=== PATIENT | female | born 1955 | race Asian ===

== ENCOUNTER 2024-02-17 06:18 | Day surgery (SDC) | payer OTHER, SELFPAY ==
[2024-02-17] VITALS (12 sets, daily range): BP systolic 87–123; BP diastolic 60–77; BMI 21.3
[2024-02-17 07:20] LABS: Glucose - Point of Care 208 mg/dl (70-99)
--- NOTE | 2024-02-17 08:18 | ITS.CL.CATH ---
Automotive Parts Specialist - Catheterization
Cardiac Catheterization
Procedure Report:
CARDIAC CATHETERIZATION REPORT
Date of Procedure: 02/17/2024
Referring: Justin Mcqueen MD
Indication: Exertional dyspnea with multiple CAD risks and left ventricular dysfunction
�
HEMODYNAMIC DATA
AO: 139/69
LV: 139/12
�
LEFT VENTRICULOGRAPHY: Severe inferobasal and mild anterolateral hypokinesis with EF 42%. The LV is not dilated
�
CORONARY ANGIOGRAPHY
Dominance: Right
Left Main: 20% distal stenosis
LAD: Moderately calcified vessel with focal 50% mid LAD stenosis. The remainder of the LAD proper has mild luminal disease. D1 is a small bifurcating vessel. The large bifurcating second diagonal has 70% proximal stenosis
Circumflex: There is a small diseased ramus intermedius branch. The circumflex has 90% stenosis proximal to the takeoff of a tiny OM 2. OM 3 is large and subtotally occluded in its proximal and mid portions. The distal segment of OM 2 fills via
left to left collaterals. The circumflex continues on to supply two small diseased left posterolateral branches
RCA: The RCA is occluded in the midportion. A medium sized RPDA, small RPL 1, small RPL 2, and large RPL 3 fills via well-developed [id number] collaterals. There appears to be greater than 70% ostial RPDA stenosis
FloWire assessment: At the conclusion of the procedure we performed FloWire assessment of the LAD. If the LAD disease was not hemodynamically significant we would proceed with PCI of the diagonal branch as there would be no survival benefit to
CABG. If the LAD disease was found to be hemodynamically significant the patient would have a survival advantage to CABG. Heparin was used for anticoagulation. An EBU 3.5 guide catheter was used. A SMS Assist pressure wire was advanced into the
distal LAD. iFR measurements were 0.75, 0.76, and 0.73. The majority of the drop in Pd/Pa occurred at the site of the mid LAD lesion although there was some continued drop in the proximal LAD. These values are consistent with highly flow-limiting
disease.
�
Closure Device: None-the procedure was performed via the right radial artery. The Shelton's test was normal prior to the procedure.
�
Radiation (mGy): 162
DAP (cm2.Gy): 13.4
Fluoroscopy time: 3.3 minutes
�
CONCLUSIONS
1:�Severe inferobasal and mild anterolateral hypokinesis with EF 42%
2:�Severe triple-vessel CAD as described-FloWire assessment demonstrates the LAD disease to be flow-limiting
3. Recommend outpatient evaluation for CABG. Optimal revascularization would include grafting of the LAD, large D2, OM 3, distal RPL, +/-RPDA
�
�
Copy to: Justin Mcqueen MD, Timi Mcintosh MD
�
Surendra Cole MD, [facility], [facility]
--- NOTE | 2024-02-17 08:33 | PTCARENOTE ---
[facility] patient education packets printed in Portuguese and given to pt and spouse for:
1. Coronary Artery Disease
2. Cardiac Catheterization
3. Cardiac Catheterization discharge instructions
4. Healthy Heart Diet
5. Nitroglycerin
== END 2024-02-17 12:05 | disposition home or self-care (01) ==
LOC: CATH 06:18
PROVIDERS: ATTENDING PHYSICIAN Internal Medicine Cardiovascular Disease; FAMILY PHYSICIAN Internal Medicine; OTHER PHYSICIAN Internal Medicine Cardiovascular Disease
DX: I25.10 Atherosclerotic heart disease of native coronary artery without angina pectoris (principal); R06.09 Other forms of dyspnea; Z79.82 Long term (current) use of aspirin; Z79.899 Other long term (current) drug therapy; Z79.4 Long term (current) use of insulin
CPT/HCPCS: 82962; 93458; 93799; C1769; C1894; Q9967

== ENCOUNTER 2024-03-05 04:54 | Inpatient (IN) | payer OTHER, SELFPAY ==
[2024-02-25 13:20] VITALS: BMI 21.2
--- NOTE | 2024-02-25 14:02 | CM ---
Chart reviewed. Met with the patient and her in PAT. Patient is Turkish speaking. Reviewed preoperative and postoperative instructions and restrictions, along with showering guidelines. Gave patient 2 soaps and Cardiac Surgery Book.
Patient is independent of ADLS, lives with her in a 2 STH, 0 JOSEPHINE, 0 DME. Patient is agreeable to a home visit by CT Transitional RN. Plan is for the patient to return home with CT Transitional RN.
[2024-02-25 14:06] LABS: % Basophils 0.5 % (0-2); % Eosinophils 0.8 % (0-6); % Immature Granulocytes 0.6 % (0-0.5); % Lymphocytes 27.1 % (20.5-51.1); % Monocytes 5.6 % (1.7-9.3); % Neutrophils 65.4 % (42.2-75.2); Absolute Eosinophils 0.1 10^3/uL (0-0.7); Absolute Lymphocytes 1.8 10^3/uL (1.2-3.4); Absolute Monocytes 0.4 10^3/uL (0.1-0.6); Absolute Neutrophils 4.4 10^3/uL (1.4-6.5); Hematocrit 31.2 % (37.0-47.0); Hemoglobin 11.1 g/dL (12.0-16.0); Mean Corp Hgb Conc. 35.6 g/dL (33.0-37.0); Mean Corpuscular Hgb 29.7 pg (27.0-31.0); Mean Corpuscular Volume 83.4 fL (81.0-99.0); Mean Platelet Volume 10.8 fL (7.4-10.4); Nucleated Red Blood Cells % 0 %; Platelet Count 265 10^3/uL (130-400); Red Blood Cell Count 3.74 10^6/uL (4.20-5.40); Red Cell Dist. Width 12.2 % (11.5-14.5); White Blood Cell Count 6.7 10^3/uL (4.8-10.8)
[2024-02-25 14:10] LABS: Urine Albumin 1+ (Neg - Trace); Urine Bilirubin Negative (Negative); Urine Character Slightly Cloudy (Clear); Urine Color Yellow; Urine Glucose 2+ (Negative); Urine Ketone Negative (Negative); Urine Leukocyte 1+ (Negative); Urine Nitrite Negative (Negative); Urine Occult Blood Negative (Negative); Urine Specific Gravity 1.015 (<1.030); Urine Urobilinogen Negative (Neg - 1+)
[2024-02-25 14:13] LABS: APTT 29.4 Sec (23.4-35.0); INR 1.02; PT 13.4 Sec (11.4-14.6)
[2024-02-25 14:24] LABS: ALT (SGPT) 15 U/L (0-35); AST (SGOT) 21 U/L (14-36); Alkaline Phosphatase 77 U/L (38-126); Blood Urea Nitrogen 32 mg/dl (7-17); Calcium 9.7 mg/dl (8.4-10.2); Carbon Dioxide 27 mmol/L (22-30); Chloride 101 mmol/L (98-107); Estimated Creatinine Clearance 33 ml/min; Glucose 129 mg/dl (70-99); Potassium 4.8 mmol/L (3.5-5.1); Sodium 139 mmol/L (135-145); Total Bilirubin 0.4 mg/dl (0.2-1.3); Total Protein 6.9 g/dl (6.3-8.2); eGFR 40.73
[2024-02-25 14:33] LABS: Urine Amorphous Seen; Urine Granular Cast 0-2 /LPF (0); Urine Hyaline Cast 0-2 /LPF (0-2)
[2024-02-25 14:36] LABS: Glycohemoglobin (HgbA1c) 8.7 % (4.0-5.6); Urine Bacteria Many (Negative); Urine Red Blood Cell 0-2 /HPF (0-2)
[2024-02-25 14:40] LABS: Urine White Cell 16-20 /HPF (0-5)
[2024-03-05] VITALS (18 sets, daily range): BP systolic 75–177; BP diastolic 47–76; BMI 22.1
[2024-03-05] MEDS: PROTONIX 40 MG PO (05:57)
[2024-03-05] MEDS: LOPRESSOR 25 MG PO (05:57)
[2024-03-05] MEDS: MAGNESIUM OXIDE 500 MG PO (05:57)
[2024-03-05] MEDS: BACTROBAN 2% OINTMENT 1 APPLIC NASAL ×2 (05:57→19:59)
--- NOTE | 2024-03-05 06:00 | PTCARENOTE ---
pt admitted into CVICU room 2265. language line used for admission. pt confirmed 2 showers at home. pt clipped and prepped for CVOR. pt wiped w/ CHG. pre-op meds given. pre-op education provided. all questions answered. senior project controls specialist to CVOR.
--- NOTE | 2024-03-05 06:16 | W.CVOR.SURPR ---
CVOR Surgeon Immed Pre Op
-
I have examined this patient prior to performance of the scheduled procedure.
The patient's condition is unchanged from the time of the dictated/written History and
Physical and the patient is able to undergo the scheduled procedure.
[2024-03-05 07:18] LABS: ACT+ - POC 93 Seconds (82-134)
[2024-03-05 07:32] LABS: Urine Albumin 1+ (Neg - Trace); Urine Bilirubin Negative (Negative); Urine Character Clear (Clear); Urine Color Yellow; Urine Glucose 3+ (Negative); Urine Ketone Negative (Negative); Urine Leukocyte Negative (Negative); Urine Nitrite Negative (Negative); Urine Occult Blood Negative (Negative); Urine Urobilinogen Negative (Neg - 1+); Urine pH 6.5 (5.0-9.0)
[2024-03-05 08:38] LABS: Urine Red Blood Cell 0-2 /HPF (0-2); Urine White Cell 0-2 /HPF (0-5)
[2024-03-05 09:13] LABS: B.E. - POC -2.2 mmol/L; Glucose - POC 375 mg/dl (70-99); HCO3 - POC 24 mmol/L (21-28); Hematocrit - POC 27 % PCV (37-47); Hemodilution- POC Yes; Hemoglobin Calculated - POC 9.3; Ionized Calcium - POC 1.23 mmol/L (1.15-1.33); O2 Saturation %Calculated-POC 99.9 % (94-98); PCO2 - POC 50 mmHg (35-48); PO2 - POC 384 mmHg (83-108); POC Comment PRE; Potassium - POC 4.5 mmol/L (3.5-5.1); Sodium - POC 139 mmol/L (136-145)
[2024-03-05 09:23] LABS: B.E. - POC -1.4 mmol/L; Glucose - POC 343 mg/dl (70-99); HCO3 - POC 23 mmol/L (21-28); Hematocrit - POC 23 % PCV (37-47); Hemodilution- POC Yes; Hemoglobin Calculated - POC 7.8; Ionized Calcium - POC 1.14 mmol/L (1.15-1.33); O2 Saturation %Calculated-POC 99.9 % (94-98); PCO2 - POC 39 mmHg (35-48); PO2 - POC 292 mmHg (83-108); POC Comment PRE PUMP; Potassium - POC 4.6 mmol/L (3.5-5.1); Sodium - POC 137 mmol/L (136-145); pH - POC 7.39 (7.35-7.45)
[2024-03-05 09:25] LABS: ACT+ - POC 726 Seconds (82-134)
[2024-03-05 09:43] LABS: Hemoglobin 7.8 g/dL (12.0-16.0)
[2024-03-05 09:55] LABS: B.E. - POC -1.8 mmol/L; Glucose - POC 371 mg/dl (70-99); HCO3 - POC 23 mmol/L (21-28); Hematocrit - POC 24 % PCV (37-47); Hemodilution- POC Yes; Ionized Calcium - POC 1.12 mmol/L (1.15-1.33); O2 Saturation %Calculated-POC 99.9 % (94-98); PCO2 - POC 37 mmHg (35-48); PO2 - POC 326 mmHg (83-108); Potassium - POC 4.6 mmol/L (3.5-5.1); Sodium - POC 136 mmol/L (136-145); pH - POC 7.39 (7.35-7.45)
[2024-03-05 10:12] LABS: ACT+ - POC 886 Seconds (82-134)
[2024-03-05 10:31] LABS: B.E. - POC 1.9 mmol/L; Glucose - POC 275 mg/dl (70-99); HCO3 - POC 27 mmol/L (21-28); Hematocrit - POC 17 % PCV (37-47); Hemodilution- POC Yes; Hemoglobin Calculated - POC 5.8; Ionized Calcium - POC 0.99 mmol/L (1.15-1.33); O2 Saturation %Calculated-POC 99.9 % (94-98); PCO2 - POC 43 mmHg (35-48); PO2 - POC 316 mmHg (83-108); POC Comment CPB; Potassium - POC 5.3 mmol/L (3.5-5.1); Sodium - POC 136 mmol/L (136-145)
[2024-03-05 10:44] LABS: ACT+ - POC 727 Seconds (82-134)
--- NOTE | 2024-03-05 10:44 | CM ---
Chart reviewed. Patient is in the OR today. Patient is Divehi speaking. Patient is independent of ADLS, lives with her in a 2 STH, 0 JOSEPHINE, 0 DME. Plan is for the patient to return home with CT Transitional RN. CM to follow
[2024-03-05 11:00] LABS: B.E. - POC 2.4 mmol/L; Glucose - POC 276 mg/dl (70-99); HCO3 - POC 27 mmol/L (21-28); Hematocrit - POC 24 % PCV (37-47); Hemodilution- POC Yes; Hemoglobin Calculated - POC 8.3; Ionized Calcium - POC 1.01 mmol/L (1.15-1.33); PCO2 - POC 42 mmHg (35-48); PO2 - POC 379 mmHg (83-108); POC Comment CPB; Potassium - POC 5.7 mmol/L (3.5-5.1); Sodium - POC 137 mmol/L (136-145); pH - POC 7.42 (7.35-7.45)
[2024-03-05 11:10] LABS: ACT+ - POC 555 Seconds (82-134)
[2024-03-05 11:29] LABS: B.E. - POC -0.9 mmol/L; Glucose - POC 232 mg/dl (70-99); HCO3 - POC 23 mmol/L (21-28); Hematocrit - POC 24 % PCV (37-47); Hemodilution- POC Yes; Ionized Calcium - POC 0.97 mmol/L (1.15-1.33); PCO2 - POC 37 mmHg (35-48); PO2 - POC 400 mmHg (83-108); POC Comment WARM; Potassium - POC 5.8 mmol/L (3.5-5.1); Sodium - POC 140 mmol/L (136-145); pH - POC 7.42 (7.35-7.45)
[2024-03-05 11:38] LABS: ACT+ - POC 516 Seconds (82-134)
[2024-03-05 12:04] LABS: B.E. - POC 2.7 mmol/L; Glucose - POC 211 mg/dl (70-99); HCO3 - POC 27 mmol/L (21-28); Hematocrit - POC 26 % PCV (37-47); Hemodilution- POC Yes; Hemoglobin Calculated - POC 8.7; Ionized Calcium - POC 0.95 mmol/L (1.15-1.33); PCO2 - POC 38 mmHg (35-48); PO2 - POC 369 mmHg (83-108); POC Comment WARM; Potassium - POC 5.4 mmol/L (3.5-5.1); Sodium - POC 140 mmol/L (136-145); pH - POC 7.45 (7.35-7.45)
[2024-03-05 12:11] LABS: ACT+ - POC 456 Seconds (82-134)
[2024-03-05 12:30] LABS: B.E. - POC 2.2 mmol/L; Glucose - POC 192 mg/dl (70-99); HCO3 - POC 27 mmol/L (21-28); Hematocrit - POC 26 % PCV (37-47); Hemodilution- POC Yes; Hemoglobin Calculated - POC 8.8; O2 Saturation %Calculated-POC 99.9 % (94-98); PCO2 - POC 43 mmHg (35-48); PO2 - POC 349 mmHg (83-108); POC Comment WARM; Potassium - POC 4.8 mmol/L (3.5-5.1); Sodium - POC 142 mmol/L (136-145); pH - POC 7.41 (7.35-7.45)
[2024-03-05 12:35] LABS: ACT+ - POC 101 Seconds (82-134)
[2024-03-05 13:09] LABS: B.E. - POC 2.8 mmol/L; Glucose - POC 159 mg/dl (70-99); HCO3 - POC 28 mmol/L (21-28); Hematocrit - POC 26 % PCV (37-47); Hemodilution- POC Yes; Hemoglobin Calculated - POC 8.8; Ionized Calcium - POC 1.16 mmol/L (1.15-1.33); PCO2 - POC 43 mmHg (35-48); PO2 - POC 417 mmHg (83-108); POC Comment POST; Potassium - POC 4.2 mmol/L (3.5-5.1); Sodium - POC 142 mmol/L (136-145); pH - POC 7.41 (7.35-7.45)
--- NOTE | 2024-03-05 13:09 | W.IMMPOSTOP ---
Addendum entered and electronically signed by Jarad Blanco MD 03/05/24 14:02:
[id number]
Original Note:
Surgical Immed Post Op Note
-
CARDIAC SURGERY OPERATIVE NOTE:
Preoperative Dx:
MVCAD
COPD -'light' cigarette smoker'
Type II DM
HLD
Postoperative Dx:
Same
Procedures:
1) Median sternotomy
2) Takedown of POLO (narrow pedicle w/ partial skeletonization)
3) Endoscopic harvest/prep of RLE GSV
4) CABG x 4 (POLO to LAD, GSV to D2, GSV to OM3, GSV to RPLB)
Surgeon:
Jarad Blanco M.D.
Assistants:
Keeley Jason P.A.-C.; assistant analyst throughout
Terrie Mosqueda P.A.-C.; endoscopic harvest/prep of RLE GSV, [id number] closure
Anesthesia:
Parish Alvarado M.D. and Dayna Jeffries, C.R.N.A.
Perfusion:
Waldemar DukesCJoyP.; XC: 89min, CPB: 155min
Findings:
POLO was a small caliber vessel with ELD 1.4mm; but was very healthy appearing and had very brisk blood flow
GSV was healthy appearing conduit w/ ELDs ranging from 2.5-3.5mm
LAD was visible on the epicardial surface w/ scant scattered calcifications, ELD 2.5mm
D2 was visible on the epicardial surface w/ scant scattered calcifications, ELD 3.0mm
OM3 was visible on the epicardial surface w/ moderate calcifications, ELD 2.25mm
RPLB was visible on the epicardial surface w/ very scant scattered calcifications, ELD 2.5mm
RPDA was inspected, but was a small vessel (~1mm) - bypass not performed
There was visually very little EBL during POLO/GSV harvest and throughout this procedure. However, the patient arrived to the OR w/ a Hgb of 9.3 (down from PAT Hgb of 11.1). Post-POLO/GSV harvest, her Hgb had decreased to 7.8. CPB was instituted
and despite a good RAP/AAP [900mL] post-cardioplegic arrest (1000ml plegia; 200ml blood) her Hgb had decreased to 5.8. She was transfused 2U PRBC w/ an appropriate response to Hgb 8.3. She decreased to 8.0 post a second smaller dose of
supplemental cardioplegia and was transfused 1 additiona unit of PRBC (total 3U PRBC) with appropriate response. Her Hgb remained 8.8 for the on repeat intraoperative assessments. - will closely follow Hgb as the causative etiology behind this
degree of anemia is an enigma.
Post-BRENDA: Improved LVEF from 50% to 55% w/ minor, unchanged inferobasal hypokinesis; mild/unchanged MR
1 - 7-0 suture needle was lost during this procedure; ALL other instrument, sponge, and needle counts were correct - intraoperative CXR not obtained due to diminutive size of needle
Implants:
CT x 4 (B/L pleural, inferior mediastinal, superior mediastinal)
Sternal wires x 9
Transfusions:
3U PRBC
Condition:
109 isoelectric sinus; 107/41. PA: 26/18. CVP 13. CO/CI: 3.0/1.9.
GTTS: levophed 2, precedex 0.5, insulin 1
Stable/guarded to CVICU
[2024-03-05 13:40] LABS: Glucose - Point of Care 112 mg/dl (70-99)
[2024-03-05] MEDS: AZACTAM 2000 MG IV ×2 (13:42)
[2024-03-05] MEDS: VANCOCIN 200 IV (13:43)
[2024-03-05] MEDS: STERILE WATER FOR INJECTION 10 ML IV ×2 (13:43)
--- NOTE | 2024-03-05 13:49 | W.PN.CD ---
Addendum entered and electronically signed by Macho Mendoza MD 03/05/24 16:20:
68 yo female with PMH of CAD admitted following CABG today. Received 3U pRBC during surgery. She is weaning from vent and drips. Exam with RRR, no murmurs, trace edema. EKG: NSR, RBBB (new). BRENDA: EF 50%.
Continuing to wean vent and drips. Trend tele, Hgb.
ASA, statin.
Original Note:
Today's Communication / Plan
-
Follow telemetry
Postoperative management per CT surgery
Per team, she was taking her husbands apixaban prior to pre admission testing
Impression / Plan
-
BACKGROUND: Lao speaking 68F with type II DM (on insulin), COPD, HLD and MVCAD presents for CABG
Primary Specialty Molder: Dr. Mcqueen
IMPRESSION/PLAN:
CAD S/P CABG x 4 (POLO to LAD, GSV to D2, GSV to OM3, GSV to RPLB) by Dr. Blanco on 03/05/2024
-Pre-LVEF 50%, post LVEF 55% with minor unchanged inferobasal hypokinesis
-Preop hemoglobin 9.3, hemoglobin declined to 5.8 post cardioplegia arrest and she received 2U PRBC, then again requiring a 3rd unit
-EKG sinus rhythm, PACs, left axis, & RBBB which is new
-On Levophed
Anemia, follow
HTN, follow with recovery
Sinus tachycardia, started on digoxin by her PCP, no plans to resume
Mild mitral regurgitation
HLD, on rosuvastatin 40mg
Type II DM, Hgba1c 8.7%
COPD, no acute exacerbation
Current smoker
SUBJECTIVE:
Operative notes reviewed. Intubated and sedated.
Physical Exam
Vital Signs/Labs
Vital Signs
Temp Pulse Resp BP Pulse Ox
97.9 F 80 14 176/71 100
03/05/24 05:12 03/05/24 13:37 03/05/24 13:37 03/05/24 05:57 03/05/24 13:37
03/04/24 03/05/24 03/06/24
06:59 06:59 06:59
Actual Weight 56.7 kg
PT 13.4 Sec (11.4-14.6) 02/25/24 12:27
INR 1.02 02/25/24 12:27
APTT 29.4 Sec (23.4-35.0) 02/25/24 12:27
Physical Exam
Constitutional: No acute distress and Comfortable
EENT: Anicteric and Moist mucous membranes
Cardiovascular: Rhythm & rate is regular and Pedal edema is absent
Respiratory: Lungs clear to auscul. and Other (Mechanical ventilation)
GI: Soft, Distention absent, Flat, Non tender and Normal bowel sounds
Neuro/Psych: AO x 3
Other: Skin (Warm and dry)
Data Reviewed
-
Date of Service: March 05, 2024
EKG: Report Reviewed by me
Labs: Labs Reviewed by me
Old Records: Reviewed
[2024-03-05 13:53] LABS: B.E. 0.8 mmol/L; HCO3 25.3 mmol/L (21-28); Ionized Calcium 1.22 mMOL/L (1.15-1.33); O2 Saturation % 98.4 % (94-98); PCO2 39 mmHg (32-35); PO2 208 mmHg (83-108); Potassium 4.2 mMOL/L (3.5-5.1); Sodium 139 mMOL/L (136-145); pH 7.42 (7.35-7.45)
--- NOTE | 2024-03-05 14:00 | PTCARENOTE ---
pt received from CVOR into room 2265 @ 1345. pt intubated and sedated, precedex gtt infusing @ 0.5. NSR w RBBB on monitor, HR 90s. B/L radial and DP pulses palpable. epicardial wires intact set to back up VVI 35, mA 10. RIJ cordis + swan intact w
KVOs infusing. CI 2.07. PAP ~20s/10s. CVP ~6. right radial art line intact. SBP 110s. B/L breath sounds present. #8 ETT intact and secured @ 23cm to right lip. vent set to SIMV 14/500/5/40%, POX 100%. CT x4 intact to -20 cm wall suction, drainage
WNL, no air leak present. hypoactive bowel sounds present. insulin gtt infusing per glycemic protocol. hinds catheter in place, draining CYU, UO adequate. all surgical sites stable. EKG done. pot-op labs drawn and sent. see worklist for full
assessment, VS, and interventions.
[2024-03-05 14:02] LABS: PT 18.4 Sec (11.4-14.6)
[2024-03-05 14:03] LABS: APTT 29.5 Sec (23.4-35.0)
[2024-03-05 14:04] LABS: Hematocrit 24.3 % (37.0-47.0); Hemoglobin 8.7 g/dL (12.0-16.0); Platelet Count 96 10^3/uL (130-400)
[2024-03-05] MEDS: NSS 500 IV (14:05)
[2024-03-05] MEDS: NEURONTIN PO ×3 (14:07→21:36)
[2024-03-05] MEDS: CRESTOR PO (14:07)
[2024-03-05] MEDS: ZETIA PO (14:08)
[2024-03-05 14:41] LABS: Blood Urea Nitrogen 30 mg/dl (7-17); Estimated Creatinine Clearance 37 ml/min; Glucose 105 mg/dl (70-99); Magnesium 3.1 mg/dl (1.6-2.3)
[2024-03-05] MEDS: ASPIRIN 300 MG RECTAL (14:51)
[2024-03-05] MEDS: ZOFRAN 4 MG IV (14:51)
--- NOTE | 2024-03-05 14:59 | CON.INTV ---
Consultation
Consultation Request
Date/Time Consultation Requested: 03/05/2024
Date/Time Consultation Performed: 03/05/2024
Requesting Provider: Dr. Blanco
Performing Provider: Dr. Severiano Ramirez
Reason for Consultation: Status post coronary artery bypass
Medical History
-
History of Present Illness:
68-year-old woman who is an active smoker, recently diagnosed with multivessel coronary artery disease, admitted 03/05/2024 for revascularization. Coronary artery bypass underwent on 03/05/2024 without complication.
Patient currently in the critical care unit. Intubated on mechanical ventilation. Records reviewed.
Chest tube is in place. No significant drainage or air leak.
Sedated. Comfortable per
Past Medical History
Past Medical History: Other (See assessment and plan)
Social History
Tobacco: Smoker
Alcohol: None
Drug: None
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
Family History
Family History: Unable to Obtain
Allergies / Home Medications
Allergies
Allergy/AdvReac Type Severity Reaction Status Date / Time
Penicillins Allergy Unknown Verified 02/24/24 13:02
Home Medications
�Medication �Instructions �Recorded �Confirmed �Last Taken �Type
aspirin 81 mg tablet 81 mg PO DAILY Blood Clot 02/17/24 03/05/24 03/04/24 08:00 History
Prevention/Tx
digoxin 125 mcg (0.125 mg) tablet 125 mcg PO DAILY Heart 02/17/24 03/05/24 03/04/24 08:00 History
Disease/Condition
ezetimibe 10 mg tablet 10 mg PO DAILY High Cholesterol 02/17/24 03/05/24 03/04/24 History
fenofibrate 50 mg capsule 200 mg PO DAILY High Cholesterol 02/17/24 03/05/24 03/04/24 History
insulin glargine 100 unit/mL (3 26 unit SC QPM Diabetes 02/17/24 03/05/24 03/03/24 History
mL) subcutaneous pen (Lantus
Solostar U-100 Insulin)
insulin lispro 100 unit/mL 20 unit SC BID Diabetes 02/17/24 03/05/24 03/04/24 18:00 History
subcutaneous half-unit pen
(Humalog Felix KwikPen (U-100))
omega-3 fatty acids 1,000 mg PO BID Supplement 02/17/24 03/05/24 02/16/24 20:00 History
rosuvastatin 40 mg tablet 40 mg PO DAILY High Cholesterol 02/17/24 03/05/24 03/04/24 08:00 History
semaglutide 2 mg/dose (8 mg/3 mL) 2 mg SC QWEEK Diabetes 02/17/24 03/05/24 02/10/24 08:00 History
subcutaneous pen injector (Ozempic)
metoprolol succinate 25 mg 25 mg PO DAILY Heart 02/24/24 03/05/24 Unknown History
tablet,extended release 24 hr Disease/Condition
Review of Systems
-
Unable to Obtain full review of systems at this time due to: Patient Intubation
Vitals / Labs / Diagnostic Testing
Vital Signs
Temp Pulse Resp BP Pulse Ox
99.5 F 80 14 176/71 100
03/05/24 14:00 03/05/24 13:37 03/05/24 13:37 03/05/24 05:57 03/05/24 13:45
Lab Data
03/05/24 13:39
03/05/24 13:39
Laboratory Results
03/05/24
13:39
PT 18.4 H
INR 1.50
APTT 29.5
pH 7.42
pCO2 39 H
pO2 208 H
HCO3 25.3
O2 Delivery Level
Diagnostic Testing:
Physical Exam
-
HEENT: Normocephalic
Cardiovascular: S1/S2
Respiratory: Non-Labored Respirations
GI: Soft and Non Distended
Neurology: Other (Sedation and mechanical ventilator)
Skin: Warm
General: Comfortable
Assessment
-
Status post coronary artery bypass 03/05/2020
Postoperative respiratory failure-mechanical ventilation
Postoperative anemia
Conditions present prior admission:
Type 2 diabetes
Hyperlipidemia
Chronic obstructive pulmonary disease
Tachycardia
Cigarette smoker
Coronary artery disease
Assessment and plan:
His doing well postop-currently on mechanical ventilation and appears comfortable.
ABG reviewed: Adequate oxygenation and ventilation
Continue SIMV mode with no change
Spontaneous breathing trial per protocol once sedation wears off.
Anemia noted-no evidence of acute bleeding
Follow H&H serially
Hemodynamics -acceptable on low-dose Levophed. Will be weaned off as able.
PA catheter and arterial line in place
Follow renal function and urinary output closely
Chest tube with no excessive drainage-no air leak.
Chest x-ray reviewed: With no pneumothorax or fluid collections.
Remain nothing by mouth
Head of the bed elevation
Glycemic control per protocol
DVT prophylaxis when safe from the surgical perspective.
Critical care statement: A total of 32 minutes of critical care time was provided for this patient today. This includes management of unstable vital signs, evaluation of the patient at bedside, reviewing the patient's pertinent medical records
including ventilator settings, arterial blood gases, radiographs, microbiology, laboratory evaluations and discussion with primary team, critical care nursing, and respiratory therapy.
[2024-03-05 15:02] LABS: Glucose - Point of Care 117 mg/dl (70-99)
[2024-03-05 16:12] LABS: Glucose - Point of Care 128 mg/dl (70-99)
--- NOTE | 2024-03-05 16:35 | PTCARENOTE ---
CI dropped to 1.3-14. CT TAX SERVICES MANAGER aware. 1 unit FFP transfused per orders.
[2024-03-05] MEDS: PACERONE PO ×2 (16:53→22:25)
[2024-03-05 17:04] LABS: Glucose - Point of Care 125 mg/dl (70-99)
[2024-03-05 17:14] LABS: Hematocrit 24.1 % (37.0-47.0); Hemoglobin 8.8 g/dL (12.0-16.0); Platelet Count 119 10^3/uL (130-400)
--- NOTE | 2024-03-05 18:00 | PTCARENOTE ---
pt starting to wake up. precedex gtt off. ST on monitor. SBP 90s. Levo gtt @ 4mcg. last CI 1.94. CT LENS GRINDING MACHINE OPERATOR aware. pt remains intubated, vent settings unchanged. POX 100%. CT output and UO WNL. Insulin gtt maintained. all surgical sites stable.
[2024-03-05 18:06] LABS: Glucose - Point of Care 135 mg/dl (70-99)
[2024-03-05] MEDS: SENOKOT-S PO (19:59)
[2024-03-05] MEDS: LACTATED RINGERS 250 ML IV (19:59)
[2024-03-05 20:14] LABS: Glucose - Point of Care 125 mg/dl (70-99)
--- NOTE | 2024-03-05 20:30 | PTCARENOTE ---
Patient received Intubated/Ventilator. Language barrier. Family briefly at bedside. Patient drowsy. No pain medication administered. Open eyes briefly to verbal and tactile stimulation. Pupils size 2 with brisk reaction. Weak bilateral hand
grasps. Moves extremities. #8.0 ETT 22cm Right lip. SIMV Ventilator settings: Rate 14 TV 500 PS 5 PEEP 5 FiO2 40%. SpO2 100%. Volumes 500-520. Peak pressures 20-22. Minimal secretions. Mouth care provided. Four chest tubes -
Mediastinal x2 and Right and Left Pleural - Intact and patent - No air leak - 5-10 ml Red drainage. Chest tube dressing intact. Sinus Rhythm to Sinus Tachycardia. BBC. Heart rate 90-100. Patient continues on Levophed gtt 5 mcq/min (18.8 ml/hr).
Epicardial Temporary Pacemaker - VVI Rate 35, Output 10, Sensitivity 2.0. Patient with no c/o chest pain, pressure or discomfort. Abdomen soft, nondistended. Hypoactive bowel sounds. No BM. Positive flatus. No c/o nausea. No vomiting. Gandara
catheter - Temperature sensing - Light arlen colored urine - Outputs as documented. Positive, palpable pulses. No c/o flank or back pain. Right I.J. Cordis with [place] catheter. Right radial arterial line. A-Line, PAP, CVP with pressure
bag/saline flush - Flush without difficulty - Zeroed and calibrated - Waveform WNL. C.O. 3.13 C.I. 1.98 SVR 1558 PAP 20/11 CVP 3. LR IVF Bolus 250 ml x1. Sternal dressing intact. Right groin dressing intact. Right knee incision - Surgical
adhesive - Coban Epi Wrap. Right lower extremity incision - Surgical adhesive - Coban Epi Wrap. Assessment as documented.
[2024-03-05 21:34] LABS: B.E. 1.1 mmol/L; Ionized Calcium 1.28 mMOL/L (1.15-1.33); O2 Saturation % 98.7 % (94-98); PCO2 36 mmHg (32-35); PO2 180 mmHg (83-108); pH 7.45 (7.35-7.45)
[2024-03-05 21:37] LABS: Hematocrit 25.2 % (37.0-47.0); Hemoglobin 9.2 g/dL (12.0-16.0); Mean Corp Hgb Conc. 36.5 g/dL (33.0-37.0); Mean Corpuscular Hgb 29.9 pg (27.0-31.0); Mean Corpuscular Volume 81.8 fL (81.0-99.0); Mean Platelet Volume 10.9 fL (7.4-10.4); Platelet Count 135 10^3/uL (130-400); Red Blood Cell Count 3.08 10^6/uL (4.20-5.40); Red Cell Dist. Width 13.6 % (11.5-14.5); White Blood Cell Count 7.7 10^3/uL (4.8-10.8)
[2024-03-05 21:38] LABS: Mixed Venous O2 Saturation 54.3 %
[2024-03-05 21:50] LABS: Blood Urea Nitrogen 34 mg/dl (7-17); Calcium 8.8 mg/dl (8.4-10.2); Carbon Dioxide 26 mmol/L (22-30); Chloride 108 mmol/L (98-107); Estimated Creatinine Clearance 29 ml/min; Glucose 113 mg/dl (70-99); Magnesium 3.6 mg/dl (1.6-2.3); Potassium 3.6 mmol/L (3.5-5.1); Sodium 142 mmol/L (135-145); eGFR 37.49
[2024-03-05 22:11] LABS: Glucose - Point of Care 120 mg/dl (70-99)
[2024-03-05] MEDS: KCL 50 IV ×2 (22:20→23:22)
[2024-03-05] MEDS: OFIRMEV 100 IV (23:15)
[2024-03-05] MEDS: LEVOPHED 250 IV (23:22)
[2024-03-05 23:29] LABS: Glucose - Point of Care 91 mg/dl (70-99)
--- NOTE | 2024-03-05 23:30 | PTCARENOTE ---
Labs ordered by PA for CT Surgery. Labs collected and sent. Mixed Venous 54.3. K 3.6 - 20KCL/50ml IV x2. Hgb 9.2 Hct 25.2. IV Ofirmev 1000mg/100ml ordered and infused. One unit PRBC's ordered. Patient awakens briefly then back to sleep.
Assessment as documented.
[2024-03-06] VITALS (45 sets, daily range): BP systolic 84–143; BP diastolic 39–63; BMI 23.5
[2024-03-06 00:45] LABS: Glucose - Point of Care 98 mg/dl (70-99)
--- NOTE | 2024-03-06 01:18 | W.PN.CT ---
Addendum entered and electronically signed by Jarad Blanco MD 03/06/24 09:20:
I saw and examined the patient.
The PA's note was reviewed and I agree with the note.
Comment:
POD#1 s/p CABG x 4
No major overnight events. But not extubated yet....will extubate now. Follows all commands, DE [place] GARZA, ABG ok
Heme + stools this AM - transfused 1U PRBC this AM - will consult GI - this may explain intraoperative anemia
Maintain CTs
Maintain hinds for now - potential removal later today
Wean levophed for MAPs > 65
D/C A-line/SGC once off levophed
UO: 1055 since OR - creat 1.7 (1.2-1.5 preop) - hold on diuresis today
Original Note:
Today's Communication / Plan
-
Plan:
-No major issues overnight. Hemodynamically and neurologically intact
-Pt slow to awaken from anesthesia, follows commands and moves all extremities appropriately
-Remains intubated, did not receive narcotics overnight, did get IV Tylenol for TM of 101.2 and pain
-Able to wean levophed from 7 to 3 this AM, after 1u PRBC last night, remains on insulin gtt per protocol
-Noted to have heme + stool this AM (melena). Will likely benefit from GI consult. H/H stable @ 10.9/30.1
-Last CI 2.06 @ 0200 and 1.56 this AM, MVO2 53.7 U/O since OR 1055 mL
-Monitor chest tube drainage: 2meds 60/175, R/L pleurals 70/120
-Vent settings: SIMV/500/14/5/.40; AB.41/35/209/22.2/99, should be able to extubate when more awake this AM
-Cont. current meds (Will hold ASA/Plavix until okay with GI)
-D/C swan and a-line when able to wean of Levophed
-Will maintain hinds catheter another day given CKD3a and slow to awaken from anesthesia, Cr 1.7 today, was 1.2-1.5 preop
-Tele phase once of insulin gtt tomorrow, may need to keep until Friday, A1C 8.7. Diabetes management consult
-Maintain cordis
-Encourage use of IS
-Wean off of O2 as tolerated
-OOB into chair/Ambulate
Assessment / Plan
-
Assessment:
-S/P CABG x 4 (POLO to LAD, GSV to D2, GSV to OM3, GSV to RPLB)/Takedown of POLO (narrow pedicle w/ partial skeletonization)/Endoscopic harvest/prep of RLE GSV, by Dr. Blanco, 03/05/24, pod#1
-Multivessel CAD
-Mild MR
-Calcified prox Asc. aorta
-Severe sessile atheroma of descending aorta
-LVEF 50% to 55% postop, per intraop BRENDA
-Sinus tachycardia
-HTN
-Hyperlipidemia
-T2DM (insulin dependent, A1C 8.7)
-COPD
-Current 'light' Tobacco use (e-cigarette)
-CKD3a
-S/P
-Acute intraop/postop blood loss/anemia (transfused 3 PRBC's intraop, 1 PRBC postop)
-Acute intraop/postop coagulopathy (transfused 1 FFP postop)
-Acute postop thrombocytopenia (stable)
-Acute postop atelectasis
-Acute postop hypovolemia with subsequent hypervolemia
Discussed patient care with: Cardiology, Nursing, Respiratory Therapy, Pharmacy and Care Team
Subjective
Procedure
CABG x 4 (POLO to LAD, GSV to D2, GSV to OM3, GSV to RPLB)/Takedown of POLO (narrow pedicle w/ partial skeletonization)/Endoscopic harvest/prep of RLE GSV, by Dr. Blanco, 03/05/24
-
Date of Service: March 06, 2024
Pt slow to awaken from anesthesia, too drowsy to extubate. Follows commands and moves all extremities appropriately when awake.
Objective Data
-
PT 18.4 Sec (11.4-14.6) H 03/05/24 13:39
INR 1.50 03/05/24 13:39
APTT 29.5 Sec (23.4-35.0) 03/05/24 13:39
Vital Signs
Vital Signs
Temp Pulse Resp BP Pulse Ox
100.8 F H 92 14 114/56 100
03/06/24 01:00 03/06/24 01:00 03/06/24 01:00 03/06/24 01:00 03/06/24 01:00
CT Intake/Output/Weight
03/05/24 03/05/24 03/06/24
06:59 18:59 06:59
Intake Total 275.7 / 896.6 620.9 / 896.6
Output Total 670 / 1100 430 / 1100
Balance -394.3 / -203.4 190.9 / -203.4
SaO2: 100 (SIMV/500/14/5/40%)
Physical Exam
-
General: Awake, Oriented and AOx3
Cardiovascular: Regular rate & rhythm, No Murmurs, No Rub and No Gallop
Respiratory: Decreased Breath Sounds (at bases, otherwise clear)
Sternum: Stable
Incision: Clean, Dry, Intact and Dressing Intact
Extremities: No Edema
Heme + stool
Data Reviewed
-
Lab Results: Results Reviewed
Medications: Active Meds Reviewed
Chest X-Ray: Report Reviewed and Image Reviewed
ECG: Report Reviewed and Image Reviewed
--- NOTE | 2024-03-06 01:35 | PTCARENOTE ---
Patient's one unit of PRBC's infused without difficulty. No transfusional reaction noted. C.O. 3.47 C.I. 2.20 SVR 1429 PAP 24/12 CVP 6. Patient incontinent of large amount of soft, brown stool - Heme Negative. Skin intact. No skin breakdown
noted. CHG bath. Linens changed. Patient remains drowsy. Patient will open eyes and move extremities to simple verbal commands then back to sleep. Assessment/Interventions as documented.
[2024-03-06 02:06] LABS: Glucose - Point of Care 103 mg/dl (70-99)
--- NOTE | 2024-03-06 02:20 | PTCARENOTE ---
C.O. 3.26 C.I. 2.07 SVR 1472 PAP 20/11 CVP 6. Patient sleeping. Remains intubated/ventilator. Assessment/Interventions as documented.
[2024-03-06] MEDS: VANCOCIN 200 IV ×2 (02:39→14:18)
[2024-03-06] MEDS: NOVOLIN R INSULIN INFUSION 100 IV (04:13)
--- NOTE | 2024-03-06 04:15 | PTCARENOTE ---
Patient with large amount of brown loose stool. Then, large amount of brown liquid stool. Heme test repeated - Positive Heme test. Skin intact. No skin breakdown noted. Patient given CHG bath and linens changed. Skin protective ointment
applied to sacrum and buttocks regions. Patient briefly follows verbal commands but then goes back to sleep. Remains intubated/ventilator. EKG completed. AM labs to be completed. Portable CXR to be completed. Assessment/Interventions as
documented.
[2024-03-06 04:17] LABS: Glucose - Point of Care 101 mg/dl (70-99)
[2024-03-06 05:08] LABS: Mixed Venous O2 Saturation 53.7 %
[2024-03-06 05:12] LABS: HCO3 22.2 mmol/L (21-28); Ionized Calcium 1.26 mMOL/L (1.15-1.33); PCO2 35 mmHg (32-35); PO2 209 mmHg (83-108); pH 7.41 (7.35-7.45)
[2024-03-06 05:17] LABS: Hematocrit 30.1 % (37.0-47.0); Hemoglobin 10.9 g/dL (12.0-16.0); Mean Corp Hgb Conc. 36.2 g/dL (33.0-37.0); Mean Corpuscular Volume 80.1 fL (81.0-99.0); Mean Platelet Volume 10.8 fL (7.4-10.4); Platelet Count 121 10^3/uL (130-400); Red Blood Cell Count 3.76 10^6/uL (4.20-5.40); Red Cell Dist. Width 14.7 % (11.5-14.5); White Blood Cell Count 5.5 10^3/uL (4.8-10.8)
[2024-03-06 05:29] LABS: INR 1.16; PT 15.1 Sec (11.4-14.6)
[2024-03-06 05:49] LABS: Blood Urea Nitrogen 37 mg/dl (7-17); Calcium 8.4 mg/dl (8.4-10.2); Carbon Dioxide 23 mmol/L (22-30); Chloride 112 mmol/L (98-107); Estimated Creatinine Clearance 26 ml/min; Glucose 119 mg/dl (70-99); Magnesium 3.6 mg/dl (1.6-2.3); Potassium 4.9 mmol/L (3.5-5.1); Sodium 144 mmol/L (135-145); eGFR 32.26
[2024-03-06 05:54] LABS: Glucose - Point of Care 117 mg/dl (70-99)
--- NOTE | 2024-03-06 06:20 | PTCARENOTE ---
Patient remains drowsy. Intubated/Ventilator. C.O. 2.49 C.I. 1.58 SVR 1798 PAP 20/11 CVP 5 - PA made aware. Patient continues on Levophed gtt at 4 mcq/min (15 ml/hr). Assessment/Interventions as documented.
[2024-03-06] MEDS: NEURONTIN PO ×3 (07:53→21:28)
[2024-03-06] MEDS: PACERONE PO (07:53)
[2024-03-06] MEDS: PLAVIX PO (07:53)
[2024-03-06] MEDS: CRESTOR PO (07:53)
[2024-03-06] MEDS: TOPROL XL PO ×2 (07:54→20:21)
[2024-03-06] MEDS: ZETIA PO (07:54)
[2024-03-06] MEDS: SENOKOT-S PO ×2 (07:54→20:20)
[2024-03-06 08:00] LABS: Glucose - Point of Care 86 mg/dl (70-99)
--- NOTE | 2024-03-06 08:15 | PTCARENOTE ---
Patient received from manager instrumentation RN; Intubated; Awakes for short periods to tactile and verbal stimulation and follows commands but very drowsy/lethargic; Pupils round, reactive, equal; NSR on monitor; VSS; Epicardial V-wire present with settings
VVI 35/10/2.0; +1 DP and +2 radial pulses present; Lungs diminished throughout; ETT size 8 positioned and secured at 22 cm right lip; Ventilator settings SIMV 14/500/5/5 FiO2 40%; CTx4 to -20 cm wall suction draining bloody drainage - no air leak,
tidaling, or crepitus noted; Normoactive BS; Very frequent loose, watery diarrhea - rectal trumpet inserted; Gandara catheter in place draining clear, arlen urine; Sternal aquacell CDI, right groin 4x4 w/ tegaderm CDI, incisions from right knee to
right ankle glued, approximated, and wrapped with LEE wrap - CDI; +1 B/L UE and trace B/L LE edema; Right A-line in place, Erma John present in right Cordis at 47 cm - all lines zeroed and leveled; #18 PIV present in right wrist; Levo/insulin/nitro
infusing - see nursing flowsheets for further details; see nursing documentation for further details.
CO: 2.72
CI: 1.72
SVR: 1,881
--- NOTE | 2024-03-06 08:35 | PTCARENOTE ---
RT in room and pt placed on CPAP trial at 0825. ABG's due at 0855
[2024-03-06 09:12] LABS: B.E. -2.8 mmol/L; HCO3 21.9 mmol/L (21-28); Ionized Calcium 1.25 mMOL/L (1.15-1.33); O2 Saturation % 98.8 % (94-98); PCO2 37 mmHg (32-35); PO2 152 mmHg (83-108); Potassium 5.1 mMOL/L (3.5-5.1); Sodium 141 mMOL/L (136-145); pH 7.38 (7.35-7.45)
[2024-03-06] MEDS: BACTROBAN 2% OINTMENT 1 APPLIC NASAL ×2 (09:14→20:35)
[2024-03-06 09:15] LABS: O2 Therapy CPAP FiO2 40%
[2024-03-06 09:17] LABS: Mixed Venous O2 Saturation 63.2 %
--- NOTE | 2024-03-06 09:26 | PTCARENOTE ---
ABG's reviewed; RT at bedside; Patient extubated at 0920 and placed on 6L NC.
--- NOTE | 2024-03-06 09:34 | CON.GI ---
Addendum entered and electronically signed by Rosa Isela Aguayo DO 03/06/24 11:17:
I saw and examined the patient.
The RUBBER GASKET INSPECTOR TRIMMER or PA's note was reviewed and I agree with the note.
Comment: Agree with plan as outlined below.
Briefly, Maria L Allan is a 68 y.o. female w/ pmhx COPD, hypercholesteremia, NIDDM, tobacco abuse, CKD3a mild MR, and multi vessel CAD admitted for 4-vessel CABG on 03/05 with postoperative course c/b anemia,requiring 4 units of PRBC, stool is brown,
heme positive. She was on eliquis prior to admission, given heparin periprocedurally. Pre-operative Hgb 11.1, postoperatively 7.8, repeat following transfusions is 10.9. She is having loose, brown stool. There is no evidence of active GI bleeding
and no history of GI bleeding. Follows with Dr. Escobedo as an outpatient.
No plans for EGD/Colonoscopy at this time given brown stool. Monitor for signs of overt GI bleeding, trend Hgb, suspect loss is multifactorial. Outpatient follow-up with Dr. Escobedo.
Original Note:
Consultation
-
Date/Time Consultation Requested: 03/06/24919
Date/Time Consultation Performed: 03/06/24929
Requesting Provider: Luis M Burgos PA-C
Performing Provider: EVER Anne, Eboni Aguayo DO
Reason for Consultation: heme + stool
Medical History
Chief Complaint / HPI
Chief Complaint: heme + stool
History of Present Illness:
Pt is a 68yo with hx COPD, hypercholesteremia, NIDDM, tobacco abuse, CKD3a mild MR, and multi vessel CAD presents for elective CAGB x4 on 03/05. She was noted with hbg 11.1 pre-op 02/24 and now post-op anemia with drop to 7.8 with heme + stool and
asked to evaluation. She has required 4 units PRBC's since admission and hbg up to 10.9. She still required some post-op BP support. she does have CKD with some elevated creat and BUN close to pre-op baseline at 37. Platelets normal pre op now
121. Pt pre-op on ASA 81mg and per staff may have taken some Eliquis prior to admission and pt remains on chronic Ozempic with last dose over 1 month ago. No other NSAID use. She was also given heparin during surgery 03/05.
In review with pt, spouse, nursing staff and language line digital account coordinator patient follows with Dr. Escobedo. She has completed EGD and several at least 2 colonoscopies in past with something taken off ? polyp but noted stable exam. No prior hx GI
bleeding or anemia in past. Pt does have some chronic constipation with use of stool softeners PRN and also with some GERD or post prandial abdominal pain with some type of digestive medication used at times per review with Dr. Escobedo. She otherwise
denies odynophagia, nausea, vomiting, diarrhea(but noted some this am), or kati red or black stools. She was noted heme + per nursing staff. Family also report some abnormality recently with breast imaging and due for repeat testing.
Past Medical History
Past Medical History: Arrhythmias (tachycardia), CAD, COPD, Hypercholesterolemia, NIDDM, Renal Failure (CKD 3a) and Valvular Disease (mild MR)
Past Surgical History: Cardiac (CABG 03/05) and
Social History
Tobacco: Smoker
Alcohol: None
Drug: None
Personal:
Living: With Family
Employment: Retired
Family History
Family History: Other
Allergies / Home Medications
Allergy/AdvReac Type Severity Reaction Status Date / Time
Penicillins Allergy Unknown Verified 02/24/24 13:02
�Medication �Instructions �Recorded
aspirin 81 mg tablet 81 mg PO DAILY Blood Clot 02/17/24
Prevention/Tx
digoxin 125 mcg (0.125 mg) tablet 125 mcg PO DAILY Heart 02/17/24
Disease/Condition
ezetimibe 10 mg tablet 10 mg PO DAILY High Cholesterol 02/17/24
fenofibrate 50 mg capsule 200 mg PO DAILY High Cholesterol 02/17/24
insulin glargine 100 unit/mL (3 26 unit SC QPM Diabetes 02/17/24
mL) subcutaneous pen (Lantus
Solostar U-100 Insulin)
insulin lispro 100 unit/mL 20 unit SC BID Diabetes 02/17/24
subcutaneous half-unit pen
(Humalog Felix KwikPen (U-100))
omega-3 fatty acids 1,000 mg PO BID Supplement 02/17/24
rosuvastatin 40 mg tablet 40 mg PO DAILY High Cholesterol 02/17/24
semaglutide 2 mg/dose (8 mg/3 mL) 2 mg SC QWEEK Diabetes 02/17/24
subcutaneous pen injector (Ozempic)
metoprolol succinate 25 mg 25 mg PO DAILY Heart 02/24/24
tablet,extended release 24 hr Disease/Condition
Review of Systems
-
Unable to obtain full review of systems at this time due to: Other (some lethargy post op)
History Source: Patient and Family
Constitutional: Reports Fever (101.2 )
EENT: Reports No Symptoms
Respiratory: Reports No Symptoms
Cardiac: Reports No Symptoms
Abdomen/GI: Reports Abdominal Pain, Diarrhea (x 1 this am) and Constipated (chronic)
: Reports No Symptoms
Musculoskeletal: Reports No Symptoms
Skin: Reports No Symptoms
Neurological: Reports Weakness
Endocrine: Reports No Symptoms
Hematologic/Lymphatic: Reports No Symptoms
Vital Signs
Temp Pulse Resp BP Pulse Ox
99.8 F 96 21 112/55 99
03/06/24 09:00 03/06/24 09:15 03/06/24 09:15 03/06/24 09:00 03/06/24 09:20
Physical Exam
Exam
General: Well Developed, Well Nourished, No Apparent Distress and Other (lethargic but nods to some questions)
HEENT: Normocephalic and Anicteric
Respiratory: Clear and Other (chest tube in place with some serous sang drainage )
Cardiac: Regular Rhythm
GI: Soft, Non Tender and Non Distended
Rectal: Other (per staff brown liquid heme neg )
Musculoskeletal: No Clubbing and No Cyanosis
Skin: Warm and Dry
Neuro: Other (lethargic but noding to some questions)
Psych: Calm
Results
WBC 5.5 10^3/uL (4.8-10.8) 03/06/24 04:57
Hgb 10.9 g/dL (12.0-16.0) L 03/06/24 04:57
Hct 30.1 % (37.0-47.0) L 03/06/24 04:57
MCV 80.1 fL (81.0-99.0) L 03/06/24 04:57
Plt Count 121 10^3/uL (130-400) L 03/06/24 04:57
Absolute Neuts (auto) 4.4 10^3/uL (1.4-6.5) 02/25/24 12:27
PT 15.1 Sec (11.4-14.6) H 03/06/24 04:57
INR 1.16 03/06/24 04:57
APTT 29.5 Sec (23.4-35.0) 03/05/24 13:39
Sodium 144 mmol/L (135-145) 03/06/24 04:57
Potassium 4.9 mmol/L (3.5-5.1) D 03/06/24 04:57
Chloride 112 mmol/L (98-107) H 03/06/24 04:57
Carbon Dioxide 23 mmol/L (22-30) 03/06/24 04:57
BUN 37 mg/dl (7-17) H 03/06/24 04:57
Creatinine 1.7 mg/dL (0.6-1.0) H 03/06/24 04:57
Calcium 8.4 mg/dl (8.4-10.2) 03/06/24 04:57
Total Bilirubin 0.4 mg/dl (0.2-1.3) 02/25/24 12:27
AST 21 U/L (14-36) 02/25/24 12:27
ALT 15 U/L (0-35) 02/25/24 12:27
Alkaline Phosphatase 77 U/L (38-126) 02/25/24 12:27
Diagnostic Image Results:
Prior GI Procedures:
EGD: in past Dr. Escobedo
Colonoscopy: in past Dr. Escobedo ? polyp removal
Assessment / Plan
-
Pt is a 68yo with hx COPD, hypercholesteremia, NIDDM, tobacco abuse, CKD3a mild MR, and multi vessel CAD presents for elective CAGB x4 on 03/05. She was noted with hbg 11.1 pre-op 02/24 and now post-op anemia with drop to 7.8 with heme + stool. .
She has required 4 units PRBC's since admission and hbg up to 10.9. BUN at baseline. Some drop in platelets post-op. Pt pre-op on ASA 81mg and per staff may have taken some Eliquis prior to admission and pt remains on chronic Ozempic with last
dose over 1 month ago. No other NSAID use. She was also given heparin during surgery 03/05. Hx some chronic GERD/post prandial pain med taken prior to admission and constipation and with some loose stool since admission.
-anemia requiring transfusion during admission
-heme + brown stool
-loose stool with hx constipation
-s/p CABG 03/05 for multi vessel CAD
-fever 101.2
-thrombocytopenia with normal platelets pre-op
-prior GERD/abdominal pain prior to admission
-hx ? polyps follows with dr. Escobedo prior to admission
-recent abnormal breast imaging due OP follow up
other med problems:
-COPD
-hypercholesterolemia
-NIDDM
-tobacco abuse
-CKD
-mild MR
PLAN:
etiology of anemia unclear -- currently no signs of massive GI bleeding as stools brown and loose
pt was on Eliquis prior to admission at some point and given heparin during surgery
agree with PPI
trend hbg which has improved and stool records
trend platelets as also some drop during admission
iron studies not helpful post transfusion
if signs of increase bleeding reassess need for EGD/colon
if no signs of bleeding OP follow up with Dr. Escobedo
follow fever curve management per CT surgery
if further diarrhea check stool studies
OP follow up for repeat breast imaging per family
spouse, nursing staff and CT surgery updated on plan
-
-
Thank you for consultation and allowing me to participate in the patient's care. Please call the photonic laboratory technician GI physician during the after hours with any questions or concerns.
[2024-03-06] MEDS: LACTATED RINGERS 250 ML IV ×4 (09:42→15:14)
[2024-03-06 10:05] LABS: Glucose - Point of Care 123 mg/dl (70-99)
[2024-03-06] MEDS: LIDOCAINE 4% PATCH TOPICAL (10:26)
[2024-03-06] MEDS: LOW STRENGTH ASPIRIN 81 MG PO (10:27)
[2024-03-06] MEDS: PROTONIX 100 IV ×2 (10:27→22:04)
--- NOTE | 2024-03-06 10:56 | RESPNOTE ---
pt extubated to at 920 to 6lpm nasal cannula. 02 sats of 96% noted. at bedside.
--- NOTE | 2024-03-06 11:35 | W.PN.INTV ---
Today's Communication / Plan
Recommendations
Continue postoperative care
Follow chest tube output
Daily chest x-ray
Follow hemoglobin
Increase activity as able
Incentive spirometry
Analgesia
Sign off
Assessment
-
Status post coronary artery bypass 03/05/2020
Postoperative respiratory failure-mechanical ventilation
Postoperative anemia
Conditions present prior admission:
Type 2 diabetes
Hyperlipidemia
Chronic obstructive pulmonary disease
Tachycardia
Cigarette smoker
Coronary artery disease
Assessment and plan:
Postoperative day 1
Extubated 03/06/2024
Chest x-ray today: Reviewed, no pneumothorax or acute infiltrates. Chest tubes in place.
Incentive spirometer
Increase activity as able
Anemia noted-no evidence of acute bleeding
Heme positive stools
GI correspondence reviewed. No plans for any intervention.
Follow H&H serially
Hemodynamics -Levophed has been weaned off
PA catheter and arterial line in place
Creatinine trending higher. Continue to monitor.
Follow renal function and urinary output closely
Chest tube with no excessive drainage-no air leak.
Chest x-ray reviewed: With no pneumothorax or fluid collections.
Smoker: No formal diagnosis of COPD
Not not on exam
Advance diet as tolerated
Head of the bed elevation
Glycemic control per protocol
DVT prophylaxis when safe from the surgical perspective.
Patient now extubated. Continue postoperative care
Eventual transfer to telemetry
Critical care team will sign off
Subjective Dataa
Subjective Data
Date of Service:
Date of Service: March 06, 2024
Chief Complaint: Dental Laboratory Technician Follow Up (Status postcoronary artery)
Subjective:
Overnight no major events.
Extubated earlier this morning.
Objective Data
Data Reviewed
Vital Signs / I&O / Oxygen:
Vital Signs
Temp Pulse Resp BP Pulse Ox
99.3 F 96 19 91/46 97
03/06/24 11:00 03/06/24 11:00 03/06/24 11:00 03/06/24 11:00 03/06/24 11:00
Intake and Output
03/05/24 03/06/24 03/07/24
06:59 06:59 06:59
Intake Total 1604.3 / 1675.4 791.3 / 791.3
Output Total 1350 / 1400 235 / 235
Balance 254.3 / 275.4 556.3 / 556.3
SaO2 [CPAP/PSV] 99
SaO2 [SIMV] 100
SaO2 97
Nasal Cannula flow liters per 6
minute
Physical Exam
General: Comfortable
HEENT: Normocephalic
Cardiovascular: S1-S2
Respiratory: Clear, Non-Labored Respirations and Chest Tube (No air leak or excessive drainage)
GI: Soft and Non Distended
Neurology: Awake, Alert and No Motor Deficits
Skin: Warm
Labs/Micro/Reports
Lab Data
03/06/24 04:57
03/06/24 04:57
Laboratory Results
03/05/24 03/05/24 03/06/24
13:39 21:25 04:57
PT 18.4 H 15.1 H
INR 1.50 1.16
APTT 29.5
pH 7.42 7.45 7.41
pCO2 39 H 36 H 35
pO2 208 H 180 H 209 H
HCO3 25.3 25.0 22.2
O2 Delivery Level
03/06/24
08:59
PT
INR
APTT
pH 7.38
pCO2 37 H
pO2 152 H
HCO3 21.9
O2 Delivery Level Cpap fio2 40%
[2024-03-06 12:01] LABS: Glucose - Point of Care 91 mg/dl (70-99)
--- NOTE | 2024-03-06 13:30 | PTCARENOTE ---
Arterial line and Erma tala removed as per CVPA Chase LJoy orders; VSS; Patient resting comfortably in bed.
--- NOTE | 2024-03-06 13:47 | W.PN.ANS.POP ---
Anesthesia Post Operative
- Anesthesia Post Op Note
Vital Signs Stable-See Nursing Note: Yes
Airway Patent: Yes
Adequate Pain Control: Yes
Change in Mental Status: No
Current Postoperative Nausea & Vomiting: No
Anesthesia Complications: No
General Anesthetic Recall: No
Unplanned Admission: No
Post Op Hydration Adequate: Yes
[2024-03-06 14:08] LABS: Glucose - Point of Care 102 mg/dl (70-99)
[2024-03-06] MEDS: NSS IV (14:20)
[2024-03-06] MEDS: TYLENOL 650 MG PO ×2 (15:12→20:35)
[2024-03-06] MEDS: PACERONE 200 MG PO ×2 (15:13→22:05)
[2024-03-06 16:03] LABS: Glucose - Point of Care 181 mg/dl (70-99)
--- NOTE | 2024-03-06 16:28 | PTCARENOTE ---
Crushed PO medications due to patient drowsiness and safety concerns with PO intake; Patient uncomfortable and complaining of pain - PRN PO Tylenol given with good effect; Liquid diarrhea continuing but rectal trumpet in place; LR Bolus x4 given
throughout shift due to low CVP and BP; Gandara catheter to remain in place as per MARC Pyle
[2024-03-06 17:06] LABS: Glucose - Point of Care 126 mg/dl (70-99)
[2024-03-06] MEDS: ALBUMIN 5% 250 IV ×2 (17:21→18:34)
[2024-03-06] MEDS: ProAmatine 5 MG PO (18:00)
--- NOTE | 2024-03-06 18:19 | PTCARENOTE ---
BP low - CVPA Chase Pyle notified; PO Midodrine 5 mg and IV Albumin 5% x2 ordered for patient with good effect; Patient remains drowsy and restless at times but still follows commands
[2024-03-06 19:14] LABS: Glucose - Point of Care 98 mg/dl (70-99)
[2024-03-06 20:14] LABS: Glucose - Point of Care 114 mg/dl (70-99)
--- NOTE | 2024-03-06 20:30 | PTCARENOTE ---
Patient received in bed. Patient sleeping intermittently. Patient arouses to verbal stimulation and follows simple verbal commands. Pupils sized 3 with brisk reaction. Patient able to move all extremities. Patient's at bedside. No s/s
of respiratory distress. Room air. SpO2 96%. Four chest tubes - Intact and patent - Mediastinal x2 and Right and Left Pleural - No air leak. Sinus Rhythm with BBC. Heart rate 90's. Blood pressure 109/46 (64). VVI Rate 35, Output 10,
Sensitivity 2.0. No c/o chest pain, pressure or discomfort. Normoactive bowel sounds. Incontinent x1 - Small amount liquidity brown stool. Skin intact. No skin breakdown noted. CHG bath and linens changed. Skin protectant ointment to buttocks
and sacrum. Sternal dressing intact. Right groin puncture site open to air. Right leg incisions - Surgical adhesive - Intact - Open to air. Positive, palpable pulses. Right I.J. Cordis intact. Insulin gtt - Glycemic protocol. Protonix gtt.
Gandara catheter intact. Assessment as documented.
[2024-03-06 22:11] LABS: Glucose - Point of Care 111 mg/dl (70-99)
[2024-03-06 23:53] LABS: Glucose - Point of Care 96 mg/dl (70-99)
[2024-03-07] VITALS (19 sets, daily range): BP systolic 109–128; BP diastolic 50–84; BMI 24.1
--- NOTE | 2024-03-07 01:30 | PTCARENOTE ---
Patient's staying in room. Patient's Gandara removed without difficulty per MD order - Due to void at 0700. No further changes from previous assessment.
[2024-03-07 01:55] LABS: Glucose - Point of Care 94 mg/dl (70-99)
[2024-03-07 04:31] LABS: Glucose - Point of Care 121 mg/dl (70-99)
--- NOTE | 2024-03-07 04:42 | W.PN.CT ---
Addendum entered and electronically signed by Jarad Blanco MD 03/07/24 09:39:
I saw and examined the patient.
The PA's note was reviewed.
Comment:
No major overnight events. Minor low BP, started on midodrine w/ improvement, remains off pressors
Continue protonix gtt for GIB w/ heme+ stools, but NO MELENA (DOCUMENTATION BELOW INCORRECT). Hgb 8.3 (from 10.9) after 1250mL IVF
Maintain CTs today
Maintain cordis
Hinds was removed this AM; creat 1.7 (stable from yesterday) - preop 1.2-1.5
OOB/IS/ambulate
CXR: clear
Original Note:
Today's Communication / Plan
-
Plan:
-No major issues overnight.
-Pt sluggish yesterday, follows commands and moves all extremities appropriately
-now off pressors
-Noted to have heme + stool this AM (melena). GI recs appreciated, cont protonix gtt
-Monitor chest tube drainage: 2meds 135/180, R/L pleurals 110/180
-Will maintain hinds catheter another day given CKD3a and slow to awaken from anesthesia, Cr today, was 1.2-1.5 preop
-remains on insulin gtt
-Maintain cordis
-Encourage use of IS
-Wean off of O2 as tolerated
-OOB into chair/Ambulate
Assessment / Plan
-
Assessment:
-S/P CABG x 4 (POLO to LAD, GSV to D2, GSV to OM3, GSV to RPLB)/Takedown of POLO (narrow pedicle w/ partial skeletonization)/Endoscopic harvest/prep of RLE GSV, by Dr. Blanco, 03/05/24, pod#2
-Multivessel CAD
-Mild MR
-Calcified prox Asc. aorta
-Severe sessile atheroma of descending aorta
-LVEF 50% to 55% postop, per intraop BRENDA
-Sinus tachycardia
-HTN
-Hyperlipidemia
-T2DM (insulin dependent, A1C 8.7)
-COPD
-Current 'light' Tobacco use (e-cigarette)
-CKD3a
-S/P
-Acute intraop/postop blood loss/anemia (transfused 3 PRBC's intraop, 1 PRBC postop)
-Acute intraop/postop coagulopathy (transfused 1 FFP postop)
-Acute postop thrombocytopenia (stable)
-Acute postop atelectasis
-Acute postop hypovolemia with subsequent hypervolemia
Subjective
Procedure
CABG x 4 (POLO to LAD, GSV to D2, GSV to OM3, GSV to RPLB)/Takedown of POLO (narrow pedicle w/ partial skeletonization)/Endoscopic harvest/prep of RLE GSV, by Dr. Blanco, 03/05/24
-
Date of Service: March 07, 2024
Objective Data
-
PT 15.1 Sec (11.4-14.6) H 03/06/24 04:57
INR 1.16 03/06/24 04:57
APTT 29.5 Sec (23.4-35.0) 03/05/24 13:39
Vital Signs
Vital Signs
Temp Pulse Resp BP Pulse Ox
97.8 F 98 18 110/59 95
03/07/24 00:00 03/07/24 04:00 03/07/24 04:00 03/07/24 04:00 03/07/24 04:00
CT Intake/Output/Weight
03/06/24 03/06/24 03/07/24
06:59 18:59 06:59
Intake Total 1328.6 / 1675.4 2425.1 / 2621.4 196.3 / 2621.4
Output Total 680 / 1400 590 / 1015 425 / 1015
Balance 648.6 / 275.4 1835.1 / 1606.4 -228.7 / 1606.4
SaO2: 95
Physical Exam
-
General: Awake, Oriented and AOx3
Cardiovascular: Regular rate & rhythm
Respiratory: Clear, Equal and Decreased Breath Sounds
Sternum: Stable
Incision: Clean, Dry and Intact
Extremities: Edema +1
Data Reviewed
-
Lab Results: Results Reviewed
Medications: Active Meds Reviewed
Chest X-Ray: Report Reviewed
ECG: Report Reviewed
[2024-03-07] MEDS: PROTONIX 100 IV ×2 (04:44→15:19)
[2024-03-07] MEDS: NSS 500 IV (04:45)
[2024-03-07] MEDS: TYLENOL 1000 MG PO ×3 (04:50→22:33)
--- NOTE | 2024-03-07 05:00 | PTCARENOTE ---
Patient resting in bed. Patient more awake and alert. Following verbal commands without difficulty. Patient's in room. Patient assisted on bedpan to void. Small amount of urine (50 ml). Assessment/Interventions as documented.
[2024-03-07 05:17] LABS: Blood Urea Nitrogen 41 mg/dl (7-17); Calcium 7.9 mg/dl (8.4-10.2); Carbon Dioxide 27 mmol/L (22-30); Chloride 111 mmol/L (98-107); Estimated Creatinine Clearance 26 ml/min; Glucose 118 mg/dl (70-99); Magnesium 2.9 mg/dl (1.6-2.3); Potassium 4.6 mmol/L (3.5-5.1); Sodium 143 mmol/L (135-145); eGFR 32.26
[2024-03-07 05:21] LABS: Hematocrit 23.6 % (37.0-47.0); Hemoglobin 8.3 g/dL (12.0-16.0); Mean Corp Hgb Conc. 35.2 g/dL (33.0-37.0); Mean Corpuscular Hgb 29.3 pg (27.0-31.0); Mean Corpuscular Volume 83.4 fL (81.0-99.0); Red Blood Cell Count 2.83 10^6/uL (4.20-5.40); Red Cell Dist. Width 15.4 % (11.5-14.5); White Blood Cell Count 5.2 10^3/uL (4.8-10.8)
[2024-03-07] MEDS: NOVOLIN R INSULIN INFUSION 100 IV (06:03)
[2024-03-07 06:12] LABS: Glucose - Point of Care 119 mg/dl (70-99)
[2024-03-07 07:21] LABS: Mean Platelet Volume 11.5 fL (7.4-10.4); Platelet Count 73 10^3/uL (130-400)
[2024-03-07 07:51] LABS: Glucose - Point of Care 99 mg/dl (70-99)
[2024-03-07 08:15] LABS: Hematocrit 23.9 % (37.0-47.0); Hemoglobin 8.3 g/dL (12.0-16.0); Mean Corp Hgb Conc. 34.7 g/dL (33.0-37.0); Mean Corpuscular Hgb 28.8 pg (27.0-31.0); Mean Platelet Volume 11.6 fL (7.4-10.4); Platelet Count 75 10^3/uL (130-400); Red Blood Cell Count 2.88 10^6/uL (4.20-5.40); Red Cell Dist. Width 15.4 % (11.5-14.5); White Blood Cell Count 4.8 10^3/uL (4.8-10.8)
[2024-03-07] MEDS: ProAmatine 5 MG PO (08:37)
[2024-03-07] MEDS: CRESTOR 40 MG PO (08:37)
[2024-03-07] MEDS: LOW STRENGTH ASPIRIN 81 MG PO (08:37)
[2024-03-07] MEDS: PACERONE 200 MG PO ×3 (08:37→22:32)
[2024-03-07] MEDS: ZETIA 10 MG PO (08:37)
--- NOTE | 2024-03-07 08:38 | W.PN.UPDATE ---
Update Note
Progress Note Update
Hgb dropped from 10.8 --> 8.3. Patient with small smear of brown stool overnight. Some bloody output from chest tubes.
No signs of GI bleeding. GI will sign off, please call with questions.
[2024-03-07] MEDS: PLAVIX 75 MG PO (08:42)
[2024-03-07] MEDS: TOPROL XL PO (08:43)
[2024-03-07] MEDS: LIDOCAINE 4% PATCH 1 PATCH TOPICAL (08:43)
[2024-03-07] MEDS: SENOKOT-S 1 TABLET PO (08:43)
[2024-03-07] MEDS: BACTROBAN 2% OINTMENT 1 APPLIC NASAL ×2 (08:43→20:51)
[2024-03-07] MEDS: NEURONTIN 100 MG PO ×3 (08:43→22:33)
[2024-03-07 09:22] LABS: Absolute Neutrophils -Man Diff 3.8 10^3/uL (1.4-6.5); Band Neutrophils 29 % (0-3); Lymphocytes 14 % (20-51); Metamyelocytes 1 % (-); Monocytes 4 % (2-9); Normal RBC Morphology Yes; Platelets Checked Yes; Segmented Neutrophils 52 % (42-75)
[2024-03-07 09:23] LABS: Total Cells Counted 100
--- NOTE | 2024-03-07 10:06 | PTCARENOTE ---
assumed care of pt from previous shift RN, sinus rhythm on tele, BP 114/52, + peripheral pulses, trace edema. Lungs diminished, pox 98% on RA. +bs, poor appetite, incont urine, bladder scanned for 250ml, will monitor. Surgical sites stable, right ij
cordis w KVO infusing, PIV flushes easily. Plan of care reviewed and questions encouraged.
[2024-03-07 10:26] LABS: Glucose - Point of Care 121 mg/dl (70-99)
[2024-03-07 11:56] LABS: Glucose - Point of Care 115 mg/dl (70-99)
--- NOTE | 2024-03-07 12:06 | PTCARENOTE ---
pt tolerated sitting OOB for about 2 hrs, stated she was cold and wanted to go to bed. Max assist from chair to bed. CHG bath & mouth care completed.
[2024-03-07] MEDS: ProAmatine 2.5 MG PO (13:31)
[2024-03-07 14:26] LABS: Glucose - Point of Care 101 mg/dl (70-99)
--- NOTE | 2024-03-07 15:35 | PTCARENOTE ---
pt unable to void, bladder scanned for 450ml. CT JUDY made aware. Instructed to reinsert hinds catheter. Hinds placed without incident. 500ml arlen urine received.
[2024-03-07] MEDS: NOVOLOG FLEXPEN-MODERATE RESISTANCE SC (16:36)
[2024-03-07] MEDS: SENOKOT-S PO (20:46)
[2024-03-07] MEDS: NSS (PRESERVATIVE FREE) 10 ML IV (20:51)
[2024-03-07] MEDS: PROTONIX IV 40 MG IV (20:52)
--- NOTE | 2024-03-07 21:00 | PTCARENOTE ---
Patient received resting in bed. Family at bedside. Patient awake and alert. Follows commands without difficulty. Moves all extremities without difficulty. Room air. SpO2 95%. Sinus Rhythm with BBC. Heart rate 90's. Blood pressure 116/57
(75). Four chest tubes - Mediastinal x2 and Right and Left Pleural - Intact and patent - 10 ml red drainage - No air leak. V-Wire Rate 35, Output 10, Sensitivity 2.0. No pacing spikes noted. No c/o chest pain, pressure or discomfort. Gandara
catheter - Intact and patent - Mariana colored urine. One episode of incontinence - Small amount of liquidity brown stool. Skin intact. No skin breakdown noted. Skin protectant ointment to sacrum. Right I.J. Cordis. Assessment as documented.
[2024-03-07 22:24] LABS: Glucose - Point of Care 162 mg/dl (70-99)
[2024-03-07] MEDS: LANTUS 0.2 UNITS SC (22:35)
[2024-03-08] VITALS (25 sets, daily range): BP systolic 104–142; BP diastolic 53–72; BMI 23.8
--- NOTE | 2024-03-08 | PTCARENOTE ---
Patient sleeping without difficulty. at bedside. Assessment/Interventions as documented.
--- NOTE | 2024-03-08 00:24 | W.PN.CT ---
Today's Communication / Plan
-
-No major issues overnight.
-BP soft, started on midodrine but then held with improvement in BP
-Noted to have heme + stool 03/06. GI recs appreciated, no plan for scope, Protonix gtt-> PPI BID
-Monitor chest tube drainage: 2meds 30/130, R/L pleurals 20/130 out in 12/24 hrs
-hinds removed but replaced 2/2 retention. UOP 150/650, Cr 1.7-> 1.6 (preop 1.2-1.5)
-cont meds: amio, asa, plavix, zetia, crestor. Toprol 12.5 mg to begin today.
-Maintain cordis
-Encourage use of IS
-Wean off of O2 as tolerated
-OOB into chair/Ambulate
Assessment / Plan
-
Assessment:
-S/P CABG x 4 (POLO to LAD, GSV to D2, GSV to OM3, GSV to RPLB)/Takedown of POLO (narrow pedicle w/ partial skeletonization)/Endoscopic harvest/prep of RLE GSV, by Dr. Blanco, 03/05/24, pod#3
-Multivessel CAD
-Mild MR
-Calcified prox Asc. aorta
-Severe sessile atheroma of descending aorta
-LVEF 50% to 55% postop, per intraop BRENDA
-Sinus tachycardia
-HTN
-Hyperlipidemia
-T2DM (insulin dependent, A1C 8.7)
-COPD
-Current 'light' Tobacco use (e-cigarette)
-CKD3a
-S/P
-Acute intraop/postop blood loss/anemia (transfused 3 PRBC's intraop, 1 PRBC postop)
-Acute intraop/postop coagulopathy (transfused 1 FFP postop)
-Acute postop thrombocytopenia (stable)
-Acute postop atelectasis
-Acute postop hypovolemia with subsequent hypervolemia
Subjective
Procedure
CABG x 4 (POLO to LAD, GSV to D2, GSV to OM3, GSV to RPLB)/Takedown of POLO (narrow pedicle w/ partial skeletonization)/Endoscopic harvest/prep of RLE GSV, by Dr. Blanco, 03/05/24
-
Date of Service: March 08, 2024
Objective Data
-
PT 15.1 Sec (11.4-14.6) H 03/06/24 04:57
INR 1.16 03/06/24 04:57
APTT 29.5 Sec (23.4-35.0) 03/05/24 13:39
Vital Signs
Vital Signs
Temp Pulse Resp BP Pulse Ox
98.0 F 92 17 109/53 94
03/07/24 20:00 03/07/24 22:32 03/07/24 22:00 03/07/24 22:32 03/07/24 21:00
CT Intake/Output/Weight
03/07/24 03/07/24 03/08/24
06:59 18:59 06:59
Intake Total 261.5 / 2686.6 215.4 / 265.4 50 / 265.4
Output Total 435 / 1025 710 / 880 170 / 880
Balance -173.5 / 1661.6 -494.6 / -614.6 -120 / -614.6
SaO2: 94
Physical Exam
-
General: Oriented and AOx3
Cardiovascular: Regular rate & rhythm, No Murmurs and No Rub
Respiratory: Clear and Equal
Sternum: Stable
Incision: Clean, Dry and Intact
Extremities: Edema +1
Data Reviewed
-
Lab Results: Results Reviewed
Medications: Active Meds Reviewed
Chest X-Ray: Report Reviewed
ECG: Report Reviewed
--- NOTE | 2024-03-08 04:30 | PTCARENOTE ---
Patient sleeping. Patient arouses to verbal stimulation. Awake and alert during periods of care. Patient given CHG bath and linens changed. AM lab work collected and sent. Patient's sleeping in room. Patient back to sleep.
Assessment/Interventions as documented.
[2024-03-08 04:36] LABS: Hematocrit 24.5 % (37.0-47.0); Hemoglobin 8.4 g/dL (12.0-16.0); Mean Corp Hgb Conc. 34.3 g/dL (33.0-37.0); Mean Corpuscular Hgb 29.5 pg (27.0-31.0); Mean Platelet Volume 11.5 fL (7.4-10.4); Platelet Count 77 10^3/uL (130-400); Red Blood Cell Count 2.85 10^6/uL (4.20-5.40); Red Cell Dist. Width 14.9 % (11.5-14.5); White Blood Cell Count 4.3 10^3/uL (4.8-10.8)
[2024-03-08 05:16] LABS: Blood Urea Nitrogen 45 mg/dl (7-17); Calcium 7.7 mg/dl (8.4-10.2); Carbon Dioxide 24 mmol/L (22-30); Chloride 111 mmol/L (98-107); Estimated Creatinine Clearance 27 ml/min; Glucose 149 mg/dl (70-99); Magnesium 2.7 mg/dl (1.6-2.3); Potassium 4.4 mmol/L (3.5-5.1); Sodium 145 mmol/L (135-145)
[2024-03-08 07:45] LABS: Glucose - Point of Care 164 mg/dl (70-99)
[2024-03-08] MEDS: NOVOLOG FLEXPEN-MODERATE RESISTANCE 1 UNITS SC ×2 (07:54→11:37)
[2024-03-08] MEDS: BACTROBAN 2% OINTMENT 1 APPLIC NASAL ×2 (07:55→21:22)
[2024-03-08] MEDS: PROTONIX IV 40 MG IV ×2 (07:56→21:23)
[2024-03-08] MEDS: NSS (PRESERVATIVE FREE) 10 ML IV ×2 (07:56→21:23)
[2024-03-08] MEDS: LIDOCAINE 4% PATCH 1 PATCH TOPICAL (07:56)
[2024-03-08] MEDS: SENOKOT-S PO ×2 (07:59→21:17)
--- NOTE | 2024-03-08 08:30 | PTCARENOTE ---
Patient received from retail shift leader RN; Responds to verbal stimulation and follows commands but very drowsy; Forgetful; Pupils round, reactive, equal; NSR on monitor; VSS; Epicardial V-wire present with settings VVI 35/10/2.0; +1 DP and +2 radial
pulses present; SpO2 93-97% on RA; Lungs diminished throughout; Occasional moist, productive cough with yellow, thick sputum; Unable to correctly use IS - ongoing education provided; CTx4 to -20 cm wall suction draining bloody drainage - no air
leak, tidaling, or crepitus noted; Normoactive BS; Small amounts of loose, watery diarrhea; Gandara catheter in place draining clear, yellow urine; Sternal aquacell CDI, right groin 4x4 w/ tegaderm CDI, incisions from right knee to right ankle glued,
approximated, and ADAM; Trace B/L UE and B/L LE edema; Right Cordis with KVO infusing; #18 PIV present in right wrist; PO Metoprolol restarted; see nursing documentation for further details.
[2024-03-08] MEDS: LOW STRENGTH ASPIRIN 81 MG PO (08:31)
[2024-03-08] MEDS: PACERONE 200 MG PO ×4 (08:31→22:06)
[2024-03-08] MEDS: CRESTOR 40 MG PO (08:31)
[2024-03-08] MEDS: NEURONTIN 100 MG PO (08:31)
[2024-03-08] MEDS: ZETIA 10 MG PO (08:31)
[2024-03-08] MEDS: PLAVIX 75 MG PO (08:31)
[2024-03-08] MEDS: TOPROL XL 12.5 MG PO ×2 (08:31→21:23)
[2024-03-08] MEDS: TYLENOL 1000 MG PO (08:32)
--- NOTE | 2024-03-08 08:33 | W.PN.CD ---
Today's Communication / Plan
-
oob to chair
encouraged to follow nurses directions
Impression / Plan
-
BACKGROUND: Setswana speaking 68F with type II DM (on insulin), COPD, HLD and MVCAD presents for CABG
Primary Cider Press Operator: Dr. Mcqueen
IMPRESSION/PLAN:
CAD S/P CABG x 4 (POLO to LAD, GSV to D2, GSV to OM3, GSV to RPLB) by Dr. Blanco on 03/05/2024
-Pre-LVEF 50%, post LVEF 55% with minor unchanged inferobasal hypokinesis
-EKG sinus rhythm, PACs, left axis, & RBBB which is new
-off all drips
- lethargic
Anemia, follow
HTN, BPs ok
Sinus tachycardia, started on digoxin by her PCP, no plans to resume
Mild mitral regurgitation
HLD, on rosuvastatin 40mg
Type II DM, Hgba1c 8.7%
COPD, no acute exacerbation
Current smoker
SUBJECTIVE:
Extubated. Will need motivation to increase activity
Physical Exam
Vital Signs/Labs
Vital Signs
Temp Pulse Resp BP Pulse Ox
99.0 F 97 15 129/59 97
03/08/24 07:40 03/08/24 08:00 03/08/24 08:00 03/08/24 08:00 03/08/24 08:00
03/07/24 03/08/24 03/09/24
06:59 06:59 06:59
Actual Weight 136 lb 0.403 oz 134 lb 0.657 oz
03/08/24 04:14
03/08/24 04:14
PT 15.1 Sec (11.4-14.6) H 03/06/24 04:57
INR 1.16 03/06/24 04:57
APTT 29.5 Sec (23.4-35.0) 03/05/24 13:39
Magnesium 2.7 mg/dl (1.6-2.3) H 03/08/24 04:14
Physical Exam
Constitutional: No acute distress and Comfortable
EENT: Anicteric
Cardiovascular: Rhythm & rate is regular and Murmur/rub/gallop absent
Respiratory: Wheeze Absent, Crackles Absent and Rhonchi Present
GI: Soft and Non tender
Neuro/Psych: Motor deficits absent
Data Reviewed
-
Date of Service: March 08, 2024
--- NOTE | 2024-03-08 10:10 | PTCARENOTE ---
Epicardial V-wire cut by GIULIANO Carvalho at 0930 and chest tubes removed by MARC Mina at 0945; VSS; Vaseline gauze, 4x4, and ABD applied to sites; Patient remains drowsy but following commands.
--- NOTE | 2024-03-08 11:02 | PN.DE.MGMTRT ---
Insulin Management
- -
03/08/2024: Diabetes Management Consult
68 year old Greenlandic speaking Female admitted for elective CABG. PMH: MVCAD, Calcified prox Asc. Aorta, HTN, HLD, COPD, Current Tobacco use (e-cigarette), CKD3a, and IDDM. Now s/p CABG x 4 on 03/05/2024. A1C 8.7%, Cr 1.6, eGFR 34.70.
Chart indicates she was taking Lantus 26 units @ HS, Ozempic and Lispro 20 units BID prior to admission. Pt was managed on continuos insulin infusion x48 hrs post-op and was transitioned off drip on 03/07 to SQ insulin.
Pt awake, resting up in chair. She is a poor historian, interviewed language line- Clicker Operator- Izabel, # [phone].
Pt easily doses off to sleep, encouraged to stay up for interview, she is easily irritated and aggravated by questions regarding her diabetes regimen at home.
State she uses a CGM- Omar and was taking Lantus 20-26 units @ HS (depending on how high her blood sugar is at bedtime) and Lispro 20 units before meals, states she generally eats 2 meals a day, will skip lunch sometimes and Ozempic, unable to
provide dose and day she was taking it.
Glucose has been stable and in range since transitioning off drip, premeal 99 to 121. Received Lantus 20 units @ HS, fasting 149(V) this AM
Will start Farxiga 10mg daily, 1st dose now. Cont Lantus 20 units @ HS and low corrective insulin with meals
Will follow and make further insulin adjustments if needed.
Diabetes History
- -
Type of Diabetes: 2 requiring insulin
Pre-Admission Diabetes Regimen
03/08/24
04:14
Creatinine 1.6 H
Lab Results
Hemoglobin A1c 8.7 % (4.0-5.6) H 02/25/24 12:27
Insulin Pump Settings
IP Diabetes Regimen
03/07/24 03/07/24 03/07/24
11:55 14:24 22:23
Glucose
POC Glucose 115 H 101 H 162 H
03/08/24 03/08/24
04:14 07:44
Glucose 149 H
POC Glucose 164 H
Meal type: Dinner
Amount consumed: 25%
Patient Education
--- NOTE | 2024-03-08 11:03 | PTCARENOTE ---
Patient unable to work with cardiac rehab this AM due to lethargy - CVPA Keeley notified and aware; Gabapentin and oxycodone discontinued; Will reattempt to get patient OOB when patient more alert.
[2024-03-08 11:37] LABS: Glucose - Point of Care 169 mg/dl (70-99)
[2024-03-08] MEDS: FARXIGA PO (11:37)
[2024-03-08] MEDS: NSS IV (12:48)
--- NOTE | 2024-03-08 13:12 | PTCARENOTE ---
Patient woke up briefly at 1250; ambulated to chair with assist x2; VSS; Incontinent of diarrhea as patient transferred; patient now resting comfortably in chair
--- NOTE | 2024-03-08 14:51 | PTCARENOTE ---
Patient transferred back to bed after 2 hours in chair; Right IJ Cordis discontinued; VSS; patient resting comfortably in bed
--- NOTE | 2024-03-08 15:30 | PTCARENOTE ---
No acute changes. Patient is arousable to name. Following simple commands and moving all extremities x 4
[2024-03-08] MEDS: NOVOLOG FLEXPEN-LOW RESISTANCE 1 UNITS SC (17:36)
[2024-03-08 17:42] LABS: Glucose - Point of Care 180 mg/dl (70-99)
[2024-03-08 19:04] LABS: Hepatitis C Antibody Negative (Negative)
[2024-03-08] MEDS: LANTUS 0.2 UNITS SC (21:22)
[2024-03-08 21:31] LABS: Glucose - Point of Care 145 mg/dl (70-99)
--- NOTE | 2024-03-08 22:12 | PTCARENOTE ---
Assumed pt care. Pt lethargic/drowsy, keeping eyes closed unless directed to open them. Oriented except for time/year. MAEE. Pt on RA, POX 96%, anterior BS clear/equal, infrequent/moist cough. NSR with BBB on monitor, heart tones normal, distal
pulses palpable. Pt assisted to turn & reposition. BS audible, poor appetite, incontinent of mucoid stool - care provided. Gandara catheter present & maintained, draining clear/yellow, care provided. Procedural sites intact. CHG cloth bath performed.
Turned & repositioned. Mouth care provided. Pt took medications in applesauce.
[2024-03-09] VITALS (13 sets, daily range): BP systolic 97–146; BP diastolic 49–82; PULSE 96; O2SAT 96; BMI 23.7
--- NOTE | 2024-03-09 00:08 | PTCARENOTE ---
VS obtained. Pt remained asleep while obtaining. No other changes.
[2024-03-09] MEDS: CORDARONE 103 MG IV (01:06)
[2024-03-09 03:19] LABS: Ionized Calcium 1.08 mMOL/L (1.15-1.33)
[2024-03-09 03:20] LABS: Hematocrit 27.1 % (37.0-47.0); Hemoglobin 9.3 g/dL (12.0-16.0); Mean Corp Hgb Conc. 34.3 g/dL (33.0-37.0); Mean Corpuscular Hgb 29.3 pg (27.0-31.0); Mean Corpuscular Volume 85.5 fL (81.0-99.0); Mean Platelet Volume 11.3 fL (7.4-10.4); Platelet Count 90 10^3/uL (130-400); Red Blood Cell Count 3.17 10^6/uL (4.20-5.40); Red Cell Dist. Width 14.2 % (11.5-14.5); White Blood Cell Count 5.7 10^3/uL (4.8-10.8)
--- NOTE | 2024-03-09 03:30 | PTCARENOTE ---
Pt incontinent of small amounts of mucoid stool, perineal care provided. Pt turned & repositioned. VS obtained. Labs drawn & sent. Pt lethargic for standing scale, weight obtained. in bed. No other changed.
[2024-03-09 03:33] LABS: Blood Urea Nitrogen 41 mg/dl (7-17); Calcium 7.7 mg/dl (8.4-10.2); Carbon Dioxide 21 mmol/L (22-30); Chloride 107 mmol/L (98-107); Estimated Creatinine Clearance 34 ml/min; Glucose 152 mg/dl (70-99); Magnesium 2.3 mg/dl (1.6-2.3); Potassium 4.2 mmol/L (3.5-5.1); Sodium 140 mmol/L (135-145); eGFR 44.51
[2024-03-09] MEDS: CALCIUM GLUCONATE 100 IV (04:15)
--- NOTE | 2024-03-09 04:48 | W.PN.CT ---
Today's Communication / Plan
-
Plan:
-No major issues overnight. Hemodynamically and neurologically intact. More alert
-Postop hypotension has resolved, Toprol XL increased to 25 mg BID. Increased Amiodarone to 400 TID, noted to be tachycardic with activity
-Had postop heme+ stool. H/H stable @ 9.3/27.1, was 8.4/24.5 yesterday. Plts 90K, was 77K yesterday, GI has signed off
-RAVI has resolved, cr 1.3, was 1.6 yesterday, peaked @ 1.7; 1.2-1.4 is her baseline
-Consider d/c of hinds catheter today, 24hr u/o 1090 mL
-Cont. current meds (Amio, Asa, Plavix, Zetia, Crestor, Toprol XL)
-F/U 2-view cxr
-Encourage use of IS
-OOB into chair/Ambulate
-Will benefit from PT/OT consult
-Likely D/C in 1-2 days
Assessment / Plan
-
Assessment:
-S/P CABG x 4 (POLO to LAD, GSV to D2, GSV to OM3, GSV to RPLB)/Takedown of POLO (narrow pedicle w/ partial skeletonization)/Endoscopic harvest/prep of RLE GSV, by Dr. Blanco, 03/05/24, pod#4
-Multivessel CAD
-Mild MR
-Calcified prox Asc. aorta
-Severe sessile atheroma of descending aorta
-LVEF 50% to 55% postop, per intraop BRENDA
-Sinus tachycardia
-HTN
-Hyperlipidemia
-T2DM (insulin dependent, A1C 8.7)
-COPD
-Current 'light' Tobacco use (e-cigarette)
-CKD3a
-S/P
-Acute intraop/postop blood loss/anemia (transfused 3 PRBC's intraop, 1 PRBC postop)
-Acute intraop/postop coagulopathy (transfused 1 FFP postop)
-Acute postop thrombocytopenia (stable)
-Acute postop atelectasis
-Acute postop hypovolemia with subsequent hypervolemia
Discussed patient care with: Cardiology, Nursing, Respiratory Therapy, Pharmacy and Care Team
Subjective
Procedure
CABG x 4 (POLO to LAD, GSV to D2, GSV to OM3, GSV to RPLB)/Takedown of POLO (narrow pedicle w/ partial skeletonization)/Endoscopic harvest/prep of RLE GSV, by Dr. Blanco, 03/05/24
-
Date of Service: March 09, 2024
Pt more alert this morning, c/o feeling thirsty
Objective Data
-
Lab Results
03/09/24 03:09
03/09/24 03:09
PT 15.1 Sec (11.4-14.6) H 03/06/24 04:57
INR 1.16 03/06/24 04:57
APTT 29.5 Sec (23.4-35.0) 03/05/24 13:39
Vital Signs
Vital Signs
Temp Pulse Resp BP Pulse Ox
98.2 F 94 16 136/61 96
03/09/24 03:29 03/09/24 04:00 03/09/24 03:29 03/09/24 03:11 03/09/24 03:29
CT Intake/Output/Weight
03/08/24 03/08/24 03/09/24
06:59 18:59 06:59
Intake Total 120 / 335.4 600 / 1000 400 / 1000
Output Total 480 / 1190 615 / 1115 500 / 1115
Balance -360 / -854.6 -15 / -115 -100 / -115
SaO2: 96 (RA)
Physical Exam
-
General: Awake, Oriented and AOx3
Cardiovascular: Regular rate & rhythm, No Murmurs, No Rub and No Gallop
Respiratory: Decreased Breath Sounds (at bases, otherwise clear)
Sternum: Stable
Incision: Clean, Dry, Intact and Dressing Intact
Extremities: Other (+trace edema)
Data Reviewed
-
Lab Results: Results Reviewed
Medications: Active Meds Reviewed
Chest X-Ray: Report Reviewed and Image Reviewed
ECG: Report Reviewed and Image Reviewed
--- NOTE | 2024-03-09 06:36 | PTCARENOTE ---
Pt assisted OOB to chair with maximal assist x 2. PA made aware.
[2024-03-09 07:59] LABS: Glucose - Point of Care 133 mg/dl (70-99)
[2024-03-09] MEDS: NOVOLOG FLEXPEN-LOW RESISTANCE SC ×2 (08:03→11:49)
--- NOTE | 2024-03-09 08:20 | W.PN.CD ---
Today's Communication / Plan
-
increase activity
Impression / Plan
-
BACKGROUND: Croatian speaking 68F with type II DM (on insulin), COPD, HLD and MVCAD presents for CABG
Primary [employer] Coxswain: Dr. Mcqueen
IMPRESSION/PLAN:
CAD S/P CABG x 4 (POLO to LAD, GSV to D2, GSV to OM3, GSV to RPLB) by Dr. Blanco on 03/05/2024
-Pre-LVEF 50%, post LVEF 55% with minor unchanged inferobasal hypokinesis
-EKG sinus rhythm, PACs, left axis, & RBBB which is new
-off all drips
- lethargic
Anemia, stable
HTN, Trending up slightly
Sinus tachycardia, started on digoxin by her PCP, no plans to resume. on metop 25 bid now.
Mild mitral regurgitation
HLD, on rosuvastatin 40mg
Type II DM, Hgba1c 8.7%
COPD, no acute exacerbation
Current smoker
SUBJECTIVE:
Extubated. Will need continued motivation to increase activity
Physical Exam
Vital Signs/Labs
Vital Signs
Temp Pulse Resp BP Pulse Ox
98.1 F 95 16 146/64 98
03/09/24 08:00 03/09/24 08:00 03/09/24 08:00 03/09/24 07:59 03/09/24 08:00
03/08/24 03/09/24 03/10/24
06:59 06:59 06:59
Actual Weight 134 lb 0.657 oz 133 lb 13.129 oz
03/09/24 03:09
03/09/24 03:09
PT 15.1 Sec (11.4-14.6) H 03/06/24 04:57
INR 1.16 03/06/24 04:57
APTT 29.5 Sec (23.4-35.0) 03/05/24 13:39
Magnesium 2.3 mg/dl (1.6-2.3) 03/09/24 03:09
Physical Exam
Constitutional: No acute distress and Comfortable
EENT: Anicteric
Cardiovascular: Rhythm & rate is regular and Murmur/rub/gallop absent
Respiratory: Respiratory effort normal, Lungs clear to auscul. and Wheeze Present (faint)
GI: Soft and Non tender
Neuro/Psych: AO x 3 and Motor deficits absent
Data Reviewed
-
Date of Service: March 09, 2024
[2024-03-09] MEDS: LIDOCAINE 4% PATCH 1 PATCH TOPICAL (08:26)
[2024-03-09] MEDS: NSS (PRESERVATIVE FREE) 10 ML IV ×2 (08:27→21:13)
[2024-03-09] MEDS: PROTONIX IV 40 MG IV ×2 (08:27→21:13)
[2024-03-09] MEDS: BACTROBAN 2% OINTMENT 1 APPLIC NASAL (08:27)
[2024-03-09] MEDS: LASIX 40 MG IV (08:28)
[2024-03-09] MEDS: SENOKOT-S PO ×2 (08:38→21:14)
[2024-03-09] MEDS: FARXIGA 10 MG PO (08:40)
[2024-03-09] MEDS: CRESTOR 40 MG PO (08:40)
[2024-03-09] MEDS: PLAVIX 75 MG PO (08:40)
[2024-03-09] MEDS: ZETIA 10 MG PO (08:40)
[2024-03-09] MEDS: TOPROL XL 25 MG PO ×2 (08:40→21:14)
[2024-03-09] MEDS: LOW STRENGTH ASPIRIN 81 MG PO (08:41)
[2024-03-09] MEDS: PACERONE 400 MG PO ×3 (08:41→21:55)
--- NOTE | 2024-03-09 08:45 | PTCARENOTE ---
Patient received from rn house supervisor RN; Responds to verbal stimulation and follows commands but very drowsy; Forgetful; Pupils round, reactive, equal; NSR with BBBC on monitor; VSS; +1 DP and +2 radial pulses present; SpO2 93-98% on RA; Lungs
diminished throughout; IS 750 ml; Normoactive BS; Small amounts of loose, watery diarrhea; Gandara catheter removed at 0825 - DTV at 1425; Sternal aquacell CDI, right groin 4x4 w/ tegaderm CDI, incisions from right knee to right ankle glued,
approximated, and ADAM; Trace B/L UE and B/L LE edema; #18 PIV present in right wrist; IV Lasix 40 mg ordered and given; see nursing documentation for further details.
--- NOTE | 2024-03-09 09:30 | PN.DE.MGMTRT ---
Insulin Management
- -
03/09/2024: Diabetes Management Consult Follow up
Patient admitted for elective CABG 03/05. PMH: MVCAD, Calcified prox Asc. Aorta, HTN, HLD, COPD, Current Tobacco use (e-cigarette), CKD3a, and IDDM. Now s/p CABG x 4 on 03/05/2024. A1C 8.7%, Cr 1.6, eGFR 34.70.
Chart indicates she was taking Lantus 26 units @ HS, Ozempic and Lispro 20 units BID prior to admission. Pt was managed on continuos insulin infusion x48 hrs post-op and was transitioned off drip on 03/07 to SQ insulin.
Pt awake, resting up in chair. Patient is Urdu speaking, poor historian, interviewed via language line- Furrier Shop Supervisor
Pt easily doses off to sleep, encouraged to stay up for interview, she is easily irritated and aggravated by questions regarding her diabetes regimen at home.
State she uses a CGM- Omar and was taking Lantus 20-26 units @ HS (depending on how high her blood sugar is at bedtime) and Lispro 20 units before meals, states she generally eats 2 meals a day, will skip lunch sometimes and Ozempic, unable to
provide dose and day she was taking it.
Glucose range 145 to 180. Received Lantus 20 units @ HS, fasting 133 this AM.
Patient did not receive Farxiga 03/08 due to concern for swallowing. First dose received this AM. Will continue Lantus 20 units @ HS and low corrective insulin with meals.
Will follow and make further insulin adjustments if needed.
Diabetes History
- -
Type of Diabetes: 2 requiring insulin
Pre-Admission Diabetes Regimen
03/09/24
03:09
Creatinine 1.3 H
Lab Results
Hemoglobin A1c 8.7 % (4.0-5.6) H 02/25/24 12:27
Insulin Pump Settings
IP Diabetes Regimen
03/08/24 03/08/24 03/08/24
11:35 17:34 21:30
Glucose
POC Glucose 169 H 180 H 145 H
03/09/24 03/09/24
03:09 07:57
Glucose 152 H
POC Glucose 133 H
Meal type: Breakfast
Meal type: Dinner
Meal type: Lunch
Meal type: Breakfast
Amount consumed: 25%
Amount consumed: 0
Amount consumed: 25%
Amount consumed: 0
Patient Education
[2024-03-09 11:48] LABS: Glucose - Point of Care 144 mg/dl (70-99)
--- NOTE | 2024-03-09 12:00 | PTCARENOTE ---
2 view CXR completed; patient struggled with assist x2 to get from chair to stretcher - CVNP Matilde Medeiros notified and aware; PT/OT consulted for patient
[2024-03-09 12:01] LABS: Ammonia < 9 umol/L (9-30)
[2024-03-09] MEDS: NSS IV (12:58)
[2024-03-09] MEDS: FLOMAX 0.4 MG PO (15:57)
--- NOTE | 2024-03-09 16:00 | PTCARENOTE ---
Patient ambulated with PT/OT; Incontinent multiple times of urine; Bladder scanned for >1466 ml and CVNP Matilde C. notified - patient straight cathed for 1450 ml of clear, yellow urine with 15 Fr catheter; Ambulated back to bed from chair with assist
x2
[2024-03-09 17:25] LABS: Glucose - Point of Care 155 mg/dl (70-99)
[2024-03-09] MEDS: NOVOLOG FLEXPEN-LOW RESISTANCE 1 UNITS SC (17:25)
--- NOTE | 2024-03-09 18:44 | PTCARENOTE ---
Patient found coughing after eating dinner cem Medeiros notified and aware; CXR ordered for tomorrow AM
--- NOTE | 2024-03-09 21:30 | PTCARENOTE ---
Assumed care of pt from dayshift RN. Pt oriented to person, place, and time. Pt following commands appropriately. Pt able to [place]. Pt is SR on the tele monitor. HR 90s. BP 106/50. Trace edema throughout. B/L DP pulses weak. B/L radial pulses
palpable. Pt on RA. POX 91%. Lung sounds diminished in the base. Deep breathing and IS encouraged. CT dressing C/D/I. Abdomen soft/nontender. +BS. Decreased appetite. Pt bladder distended. No urge to void. Pt bladder scanned for >400 mL. Pt straight
cathed for 500 mL. Pt incontinent of bowel and bladder. Pt having intermittent diarrhea. All surgical sites stable. Right wrist PIV intact and flushes. Pt turned and repositioned in bed. See worklist for full nursing assessment and interventions.
Call alexander within reach.
[2024-03-09 21:55] LABS: Glucose - Point of Care 171 mg/dl (70-99)
[2024-03-09] MEDS: LANTUS 0.2 UNITS SC (21:56)
--- NOTE | 2024-03-09 23:50 | PTCARENOTE ---
Pt reassessed. Remains SR on the tele monitor. HR 80-90s. BP stable. Pt on RA. POX 94%. All surgical sites stable. Pt repositioned in bed. No c/o pain at this time. Call alexander within reach.
[2024-03-10] VITALS (12 sets, daily range): BP systolic 86–128; BP diastolic 52–62; PULSE 88–89; O2SAT 94; BMI 23.0
--- NOTE | 2024-03-10 04:02 | PTCARENOTE ---
No acute change in assessment. Pt SR on the tele monitor. HR 90s. BP stable. Pt on RA. POX 94%. Pt incontinent of bowel x2. Pt cleaned and changed. Pt bladder scanned for 433 mL. No urge to void. CTPA aware. Plan to rescan and help pt to commode.
All surgical sites stable. No c/o pain. Labs drawn and sent.
[2024-03-10 04:13] LABS: Hematocrit 28.4 % (37.0-47.0); Hemoglobin 9.8 g/dL (12.0-16.0); Mean Corp Hgb Conc. 34.5 g/dL (33.0-37.0); Mean Corpuscular Hgb 28.4 pg (27.0-31.0); Mean Corpuscular Volume 82.3 fL (81.0-99.0); Mean Platelet Volume 11.4 fL (7.4-10.4); Platelet Count 126 10^3/uL (130-400); Red Blood Cell Count 3.45 10^6/uL (4.20-5.40); Red Cell Dist. Width 13.9 % (11.5-14.5); White Blood Cell Count 6.4 10^3/uL (4.8-10.8)
[2024-03-10 04:27] LABS: Blood Urea Nitrogen 39 mg/dl (7-17); Calcium 8.3 mg/dl (8.4-10.2); Carbon Dioxide 22 mmol/L (22-30); Chloride 101 mmol/L (98-107); Estimated Creatinine Clearance 29 ml/min; Glucose 126 mg/dl (70-99); Magnesium 1.9 mg/dl (1.6-2.3); Potassium 3.8 mmol/L (3.5-5.1); Sodium 139 mmol/L (135-145); eGFR 37.49
--- NOTE | 2024-03-10 05:34 | W.PN.CT ---
Addendum entered and electronically signed by Jarad Blanco MD 03/10/24 08:18:
I saw and examined the patient.
The PA's note was reviewed and I agree with the note.
Comment:
Spoke with patient this morning with the aid of Turkmen mail manager.
Strongly encouraged and discussed the importance of more frequent ambulation. I would like her to ambulate around the CVICU today for a minimum of 5 times
Continue to work with I-S
Follow urinary retention, hopefully this will improve spontaneously with increased ambulation
Discharge planning for 1 to 2 days
Original Note:
Today's Communication / Plan
-
Plan:
-No major issues overnight. Hemodynamically and neurologically intact. More alert
-Postop hypotension has resolved, tolerating increased Toprol XL to 25 mg BID, and Amiodarone to 400 TID, noted to be tachycardic with activity
-Had postop heme+ stool. H/H stable @ 9.8/28.4. Plts 126K, was 90K yesterday, GI has signed off
-Cr 1.5, was 1.3 yesterday, peaked @ 1.7 (baseline 1.2-1.4)
-Having acute urinary retention following hinds removal yesterday 03/09, has received straight cath x 3. Needs more encouragement with ambulation, PT/OT following
-Will likely require hinds reinsertion and Urology consult if unable to void next time around. Flomax has been added
-Also noted to have fecal incontinence, probiotics to start today
-Cont. current meds (Amio, Asa, Plavix, Zetia, Crestor, Toprol XL, Flomax)
-Will replete K, 3.8; mg 1.9
-Encourage use of IS
-OOB into chair/Ambulate
-Will benefit from PT/OT following
-Likely D/C in 1-2 days (Home vs Acute rehab)
-
Assessment / Plan
-
Assessment:
-S/P CABG x 4 (POLO to LAD, GSV to D2, GSV to OM3, GSV to RPLB)/Takedown of POLO (narrow pedicle w/ partial skeletonization)/Endoscopic harvest/prep of RLE GSV, by Dr. Blanco, 03/05/24, pod#5
-Multivessel CAD
-Mild MR
-Calcified prox Asc. aorta
-Severe sessile atheroma of descending aorta
-LVEF 50% to 55% postop, per intraop BRENDA
-Sinus tachycardia
-HTN
-Hyperlipidemia
-T2DM (insulin dependent, A1C 8.7)
-COPD
-Current 'light' Tobacco use (e-cigarette)
-CKD3a
-S/P
-Acute intraop/postop blood loss/anemia (transfused 3 PRBC's intraop, 1 PRBC postop)
-Acute intraop/postop coagulopathy (transfused 1 FFP postop)
-Acute postop thrombocytopenia (stable)
-Acute postop atelectasis
-Acute postop hypovolemia with subsequent hypervolemia
-Acute postop urinary retention S/P straight cathed x 3
-Acute postop fecal incontinence
Discussed patient care with: Cardiology, Nursing, Respiratory Therapy, Pharmacy and Care Team
Subjective
Procedure
CABG x 4 (POLO to LAD, GSV to D2, GSV to OM3, GSV to RPLB)/Takedown of POLO (narrow pedicle w/ partial skeletonization)/Endoscopic harvest/prep of RLE GSV, by Dr. Blanco, 03/05/24
-
Date of Service: March 10, 2024
Pt c/o mild incisional pain, otherwise feels well. Having fecal incontinence and postop urinary retention
Objective Data
-
Lab Results
03/10/24 03:49
03/10/24 03:49
PT 15.1 Sec (11.4-14.6) H 03/06/24 04:57
INR 1.16 03/06/24 04:57
APTT 29.5 Sec (23.4-35.0) 03/05/24 13:39
Vital Signs
Vital Signs
Temp Pulse Resp BP Pulse Ox
98.5 F 91 16 128/52 94
03/10/24 03:51 03/10/24 05:00 03/10/24 03:51 03/10/24 03:51 03/10/24 03:51
CT Intake/Output/Weight
03/09/24 03/09/24 03/10/24
06:59 18:59 06:59
Intake Total 400 / 1000 1120 / 1120
Output Total 500 / 1115 1930 / 2880 950 / 2880
Balance -100 / -115 -810 / -1760 -950 / -1760
SaO2: 94 (RA)
Physical Exam
-
General: Awake, Oriented and AOx3
Cardiovascular: Regular rate & rhythm, No Murmurs and No Gallop
Respiratory: Decreased Breath Sounds (at bases, otherwise clear)
Sternum: Stable
Incision: Clean, Dry, Intact and Dressing Intact
Extremities: Other (+trace edema)
Data Reviewed
-
Lab Results: Results Reviewed
Medications: Active Meds Reviewed
Chest X-Ray: Report Reviewed and Image Reviewed
ECG: Report Reviewed and Image Reviewed
--- NOTE | 2024-03-10 05:36 | PTCARENOTE ---
Pt bladder scanned for 433mL. Pt OOB to the commode w/ assist x2. Pt unable to void. CTPA aware. Pt straight cathed for 450mL.
[2024-03-10] MEDS: KCL 20 MEQ PO (05:56)
[2024-03-10] MEDS: SENOKOT-S PO ×2 (07:28→21:30)
--- NOTE | 2024-03-10 08:15 | PN.DE.MGMTRT ---
Insulin Management
- -
03/10/2024: Diabetes Management Consult Follow up
Patient admitted for elective CABG 03/05. PMH: MVCAD, Calcified prox Asc. Aorta, HTN, HLD, COPD, Current Tobacco use (e-cigarette), CKD3a, and IDDM. Now s/p CABG x 4 on 03/05/2024. A1C 8.7%, Cr 1.6, eGFR 34.70.
Chart indicates she was taking Lantus 26 units @ HS, Ozempic 2 mg weekly, and Lispro 20 units BID prior to admission. Uses Omar CGM for glucose monitoring. Pt was managed on continuos insulin infusion x48 hrs post-op and was transitioned off drip
on 03/07 to SQ insulin.
Pt awake, resting up in chair. Patient is Ukrainian speaking, not interviewable, moaning, eyes closed.
03/09 Glucose range 144 to 171. Received Lantus 20 units @ HS.
03/10 Fasting glucose 126 this AM. PO intake has been limited. Will continue Farxiga 10 mg daily with Lantus 20 units @ HS and low corrective insulin with meals.
Discussed with nurse.
Will follow for further needed insulin adjustments.
Diabetes History
- -
Type of Diabetes: 2 requiring insulin
Pre-Admission Diabetes Regimen
03/10/24
03:49
Creatinine 1.5 H
Lab Results
Hemoglobin A1c 8.7 % (4.0-5.6) H 02/25/24 12:27
Insulin Pump Settings
IP Diabetes Regimen
03/09/24 03/09/24 03/09/24
11:47 17:24 21:54
Glucose
POC Glucose 144 H 155 H 171 H
03/10/24
03:49
Glucose 126 H
POC Glucose
Meal type: Dinner
Meal type: Lunch
Meal type: Breakfast
Amount consumed: 30%
Amount consumed: 90%
Amount consumed: 25%
Patient Education
[2024-03-10] MEDS: PLAVIX 75 MG PO (08:29)
[2024-03-10] MEDS: FLOMAX 0.4 MG PO (08:30)
[2024-03-10] MEDS: CRESTOR 40 MG PO (08:30)
[2024-03-10] MEDS: NSS (PRESERVATIVE FREE) 10 ML IV ×2 (08:30→22:07)
[2024-03-10] MEDS: TOPROL XL 25 MG PO ×2 (08:30→22:08)
[2024-03-10] MEDS: VISBIOME 1 CAP PO (08:30)
[2024-03-10] MEDS: PROTONIX IV 40 MG IV ×2 (08:30→22:08)
[2024-03-10] MEDS: ZETIA 10 MG PO (08:30)
[2024-03-10] MEDS: MAGNESIUM OXIDE 500 MG PO ×2 (08:30→22:07)
[2024-03-10] MEDS: PACERONE 400 MG PO ×3 (08:30→22:09)
[2024-03-10] MEDS: LOW STRENGTH ASPIRIN 81 MG PO (08:30)
[2024-03-10] MEDS: FARXIGA 10 MG PO (08:30)
[2024-03-10] MEDS: LIDOCAINE 4% PATCH TOPICAL (08:31)
--- NOTE | 2024-03-10 08:46 | PTCARENOTE ---
Assumed care of patient from production supervisor off shift RN. Drowsy and alert, opens eyes when asked. SR on monitor with BBB. Room air 95%, Poorly participating in all aspects of care. Surgical dressing c,d,i. RT Leg sites, ADAM and well approximated. Abdomen
soft and non tender. Incontinent of stool and urine at times. trace edema appreciated. Pulses palpable. Ambulation encouraged.
--- NOTE | 2024-03-10 08:48 | W.PN.CD ---
Today's Communication / Plan
-
Ambulate as able
Impression / Plan
-
BACKGROUND: Macedonian speaking 68F with type II DM (on insulin), COPD, HLD and MVCAD presents for CABG
Primary Packer: Dr. Mcqueen
IMPRESSION/PLAN:
CAD S/P CABG x 4 (POLO to LAD, GSV to D2, GSV to OM3, GSV to RPLB) by Dr. Blanco on 03/05/2024
-Pre-LVEF 50%, post LVEF 55% with minor unchanged inferobasal hypokinesis
-EKG sinus rhythm, PACs, left axis, & RBBB which is new
-off all drips
- lethargic
Anemia, stable
HTN, Trending up slightly
Sinus tachycardia, started on digoxin by her PCP, no plans to resume. on metop 25 bid now.
Mild mitral regurgitation
HLD, on rosuvastatin 40mg
Type II DM, Hgba1c 8.7%
COPD, no acute exacerbation
Current smoker
SUBJECTIVE:
Feeling OK tired, discussed importance of ambulation
Physical Exam
Vital Signs/Labs
Vital Signs
Temp Pulse Resp BP Pulse Ox
98.5 F 89 18 128/52 95
03/10/24 08:00 03/10/24 08:00 03/10/24 08:00 03/10/24 03:51 03/10/24 08:00
03/09/24 03/10/24 03/11/24
06:59 06:59 06:59
Actual Weight 133 lb 13.129 oz 130 lb 1.164 oz
03/10/24 03:49
03/10/24 03:49
PT 15.1 Sec (11.4-14.6) H 03/06/24 04:57
INR 1.16 03/06/24 04:57
APTT 29.5 Sec (23.4-35.0) 03/05/24 13:39
Magnesium 1.9 mg/dl (1.6-2.3) 03/10/24 03:49
Physical Exam
Constitutional: No acute distress and Comfortable
EENT: Anicteric
Cardiovascular: Rhythm & rate is regular and Pedal edema is absent
Respiratory: Respiratory effort normal and Lungs clear to auscul.
GI: Soft
Neuro/Psych: Alert and Oriented
Data Reviewed
-
Date of Service: March 10, 2024
Medical Decision Making: Reviewed Test Results
EKG: Tracing Personally Visualized and interpreted (sr)
Echo: Report Reviewed by me
Labs: Labs Reviewed by me
[2024-03-10] MEDS: NOVOLOG FLEXPEN-LOW RESISTANCE SC ×2 (10:02→17:50)
--- NOTE | 2024-03-10 10:34 | PTCARENOTE ---
ambulated x 2 in room from door to bathroom and back. Refused at this time to ambulate into hallway. Increased activity strongly encouraged.
--- NOTE | 2024-03-10 10:53 | PTCARENOTE ---
Ambulated approx 250 feet with Rolling walker in hallway around unit. Pt moaning the entire time, but tolerated . Resting in chair after.
--- NOTE | 2024-03-10 14:50 | CM ---
CM following for DC planning needs.
Reviewed initial assessment. Pt. resides w/ spouse in a private, 2 story home. 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
There is some conflicting information regarding patient's functional status; pt. was able to ambulate 250 ft. with RN around the unit but then required an assist x2 w/ PT shortly thereafter.
I attempted to meet w/ patient but patient was sleeping soundly. Will re-attempt at a later time to meet w/ patient to discuss DC plans.
--- NOTE | 2024-03-10 16:00 | PTCARENOTE ---
bladder scanned for 589. placed hinds catheter per PA order. consulted urology and their plan is for us to place a hinds and be sent home with it as well. follow up outpatient for voiding trial. drained over 600 initially post placement. will
continue to monitor.
[2024-03-10] MEDS: NSS IV (16:07)
[2024-03-10 17:50] LABS: Glucose - Point of Care 189 mg/dl (70-99)
[2024-03-10] MEDS: NOVOLOG FLEXPEN-LOW RESISTANCE 1 UNITS SC (17:50)
--- NOTE | 2024-03-10 21:00 | PTCARENOTE ---
Report received from LARRY Mendez. Pt awake, alert. Speech clear. Able to understand Azeri communication. Makes needs known in Azeri. Moves all extremities equally. Pt on room air. Sats 96-96%. BBS present. Decreased to B bases. Audible heart
tones. Pt in SR, BBB. RATE 80's. Normotensive. See VS. For pulse and wound assessments, see flowsheets. Pt incontinent of loose stools. 2 loose stools, cleaned x 2. 1st stool small, loose, scant, mucoid bright red blood tinge seen x 1, Next stool
brown in color, soft/loose. Moisture barrier cream applied. Gandara intact, draining clear, yellow urine. Ongoing plan of care.
[2024-03-10 22:07] LABS: Glucose - Point of Care 213 mg/dl (70-99)
[2024-03-10] MEDS: LANTUS 0.2 UNITS SC (22:09)
[2024-03-10] MEDS: TYLENOL 1000 MG PO (23:46)
[2024-03-11] VITALS (14 sets, daily range): BP systolic 97–135; BP diastolic 49–76; PULSE 82; O2SAT 100; BMI 23.2
--- NOTE | 2024-03-11 | PTCARENOTE ---
Pt with small, loose brown stool. Pericare done followed by moisture barrier cream. Pt given CHG bath, linen and gown change done. C/O sternal pain, mild. Tylenol 1 GM given at 2346. Ongoing plan of care.
--- NOTE | 2024-03-11 01:20 | PTCARENOTE ---
Pt incontinent of small, loose, brown stool. Pericare done. Moisture barrier applied. VS done. See flowsheet.
--- NOTE | 2024-03-11 04:20 | PTCARENOTE ---
Pt incontinent of small, loose brown stool. Pericare done. Moisture barrier applied. VS done. See flowsheet. Labs drawn and sent. Pt going back to sleep.
[2024-03-11 04:33] LABS: Hematocrit 26.9 % (37.0-47.0); Hemoglobin 9.5 g/dL (12.0-16.0); Mean Corp Hgb Conc. 35.3 g/dL (33.0-37.0); Mean Corpuscular Hgb 29.6 pg (27.0-31.0); Mean Corpuscular Volume 83.8 fL (81.0-99.0); Mean Platelet Volume 11.1 fL (7.4-10.4); Platelet Count 169 10^3/uL (130-400); Red Blood Cell Count 3.21 10^6/uL (4.20-5.40); Red Cell Dist. Width 13.6 % (11.5-14.5); White Blood Cell Count 6.1 10^3/uL (4.8-10.8)
[2024-03-11 05:01] LABS: Blood Urea Nitrogen 36 mg/dl (7-17); Carbon Dioxide 26 mmol/L (22-30); Chloride 103 mmol/L (98-107); Estimated Creatinine Clearance 34 ml/min; Glucose 152 mg/dl (70-99); Magnesium 1.9 mg/dl (1.6-2.3); Potassium 3.8 mmol/L (3.5-5.1); Sodium 140 mmol/L (135-145); eGFR 44.51
--- NOTE | 2024-03-11 06:17 | W.PN.CT ---
Today's Communication / Plan
-
-pod #6
-no issues overnight. Says that felt weak with walking. Hemodynamically and neurologically intact. A&O, follows commands
-BP improving - on Toprol XL 25 bid and Amio 400 tid
-follow Cr- 1.3 today (1.5 on 03/10, peak 1.7 on 03/07 and 1.4 preop)
-started on Flomax 03/09 for urinary retention, Gandara reinserted 03/10- will need outpatient follow-up with Urology
-uo 1020/1785 in 12/24 hrs
-soft stools with some incontinence- hold stool softeners, continue probiotics
-Current meds (Amio, Asa, Plavix, Zetia, Crestor, Toprol XL, Flomax)
-continue to ambulate
-encourage IS, OOB
Assessment / Plan
-
Assessment:
-S/P CABG x 4 (POLO to LAD, GSV to D2, GSV to OM3, GSV to RPLB)/Takedown of POLO (narrow pedicle w/ partial skeletonization)/Endoscopic harvest/prep of RLE GSV, by Dr. Blanco, 03/05/24, pod#6
-Multivessel CAD
-Mild MR
-Calcified prox Asc. aorta
-Severe sessile atheroma of descending aorta
-LVEF 50% to 55% postop, per intraop BRENDA
-Sinus tachycardia
-HTN
-Hyperlipidemia
-T2DM (insulin dependent, A1C 8.7)
-COPD
-Current 'light' Tobacco use (e-cigarette)
-CKD3a
-S/P
-Acute intraop/postop blood loss/anemia (transfused 3 PRBC's intraop, 1 PRBC postop)
-Acute intraop/postop coagulopathy (transfused 1 FFP postop)
-Acute postop thrombocytopenia (stable)
-Acute postop atelectasis
-Acute postop hypovolemia with subsequent hypervolemia
-Acute postop urinary retention S/P straight cathed x 3
-Acute postop fecal incontinence
Discussed patient care with: Nursing and Care Team
Subjective
Procedure
CABG x 4 (POLO to LAD, GSV to D2, GSV to OM3, GSV to RPLB)/Takedown of POLO (narrow pedicle w/ partial skeletonization)/Endoscopic harvest/prep of RLE GSV, by Dr. Blanco, 03/05/24
-
Date of Service: March 11, 2024
Objective Data
-
PT 15.1 Sec (11.4-14.6) H 03/06/24 04:57
INR 1.16 03/06/24 04:57
APTT 29.5 Sec (23.4-35.0) 03/05/24 13:39
Vital Signs
Vital Signs
Temp Pulse Resp BP Pulse Ox
97.7 F 87 18 118/53 99
03/10/24 16:00 03/10/24 22:09 03/10/24 16:00 03/10/24 22:09 03/10/24 16:00
CT Intake/Output/Weight
03/10/24 03/10/24 03/11/24
06:59 18:59 06:59
Intake Total 240 / 240
Output Total 950 / 2880 765 / 765
Balance -950 / -1760 -525 / -525
SaO2: 99
Physical Exam
-
General: Awake and AOx3
Cardiovascular: Regular rate & rhythm, No Murmurs and No Rub
Respiratory: Clear and Decreased Breath Sounds
Sternum: Stable
Incision: Clean, Dry and Dressing Intact
Extremities: Other (trace edema feet only. No ankle edema b/l. DPs by Doppler b/l)
Data Reviewed
-
Lab Results: Results Reviewed
Medications: Active Meds Reviewed
Chest X-Ray: Report Reviewed and Image Reviewed
ECG: Report Reviewed and Image Reviewed
--- NOTE | 2024-03-11 06:49 | PTCARENOTE ---
Pt with stool incontinence. Pericare and Gandara care done. Moisture barrier applied to buttocks, perineum. Pt helped to sitting BP done. 107/73. Denies dizziness., lightheadedness. Pt helped to standing with 2 RNs and walker. Weighed on standing
scale. Then helped to recliner chair. Placed in recliner position. No c/o pain. Remains in SR, rate 80's.
--- NOTE | 2024-03-11 07:37 | W.PN.CD ---
Today's Communication / Plan
-
stop MgOxide
hold plavix
ambulate
Impression / Plan
-
BACKGROUND: Nepali speaking 68F with type II DM (on insulin), COPD, HLD and MVCAD presents for CABG
Primary Coffee Weigher: Dr. Mcqueen
IMPRESSION/PLAN:
CAD S/P CABG x 4 (POLO to LAD, GSV to D2, GSV to OM3, GSV to RPLB) by Dr. Blanco on 03/05/2024
-Pre-LVEF 50%, post LVEF 55% with minor unchanged inferobasal hypokinesis
-EKG sinus rhythm, PACs, left axis, & RBBB which is new
-off all drips
- lethargic but maybe today she will perk up . Would get hinds out and FORCE HER TO WALK
Anemia, stable
Loose stools: Would stop the Magnesium oxide AND hold plavix. These are our #1 and #2 suspects as culprits for her diarrhea. If this doesn't clear it up may need to try holding metoprolol
HTN, Trending up slightly
Sinus tachycardia, started on digoxin by her PCP, no plans to resume. on metop 25 bid now.
Mild mitral regurgitation
HLD, on rosuvastatin 40mg
Type II DM, Hgba1c 8.7%
COPD, no acute exacerbation
Current smoker
SUBJECTIVE:
Feeling OK tired, discussed importance of ambulation
Physical Exam
Vital Signs/Labs
Vital Signs
Temp Pulse Resp BP Pulse Ox
98.7 F 82 16 107/73 95
03/11/24 03:37 03/11/24 06:31 03/11/24 03:37 03/11/24 06:31 03/11/24 03:37
03/10/24 03/11/24 03/12/24
06:59 06:59 06:59
Actual Weight 130 lb 1.164 oz 130 lb 11.746 oz
03/11/24 04:14
03/11/24 04:14
PT 15.1 Sec (11.4-14.6) H 03/06/24 04:57
INR 1.16 03/06/24 04:57
APTT 29.5 Sec (23.4-35.0) 03/05/24 13:39
Magnesium 1.9 mg/dl (1.6-2.3) 03/11/24 04:14
Physical Exam
Constitutional: No acute distress and Comfortable
EENT: Anicteric
Cardiovascular: Rhythm & rate is regular
Respiratory: Respiratory effort normal and Lungs clear to auscul.
GI: Soft and Non tender
Neuro/Psych: AO x 3 (First time I've seen her with eyes open!) and Motor deficits absent
Data Reviewed
-
Date of Service: March 11, 2024
--- NOTE | 2024-03-11 08:00 | PTCARENOTE ---
Resumed care of patient from prev RN. AAOx3. resting in chair at time of assessment. Able to communicate with me fairly well. 96-96% on RA. Decreased at bases. SR, BBB. VSS. pulses by doppler. continues with many inc episodes of loose stools. Gandara
intact, draining clear, yellow urine. Very weak. assist x2. making patient walk into bathroom and clean self. will continue to motivate and monitor.
--- NOTE | 2024-03-11 08:01 | PN.DE.MGMTRT ---
Insulin Management
- -
03/11/2024: Diabetes Management Consult Follow up
Patient admitted for elective CABG 03/05. PMH: MVCAD, Calcified prox Asc. Aorta, HTN, HLD, COPD, Current Tobacco use (e-cigarette), CKD3a, and IDDM. Now s/p CABG x 4 on 03/05/2024. A1C 8.7%, Cr 1.6, eGFR 34.70.
Chart indicates she was taking Lantus 26 units @ HS, Ozempic 2 mg weekly, and Lispro 20 units BID prior to admission. Uses Omar CGM for glucose monitoring. Pt was managed on continuos insulin infusion x48 hrs post-op and was transitioned off drip
on 03/07 to SQ insulin.
Pt awake, resting up in chair
03/09 Glucose range 144 to 171. Received Lantus 20 units @ HS.
03/10 Fasting glucose 126 this AM. PO intake has been limited. Will continue Farxiga 10 mg daily with Lantus 20 units @ HS and low corrective insulin with meals.
03/11 Will resume AC novolog 4 units with low corrective, Farxiga 10 mg daily and lantus 20 @ hs.
Discussed with nurse.
Will follow for further needed insulin adjustments.
Diabetes History
- -
Type of Diabetes: 2 requiring insulin
Pre-Admission Diabetes Regimen
03/11/24
04:14
Creatinine 1.3 H
Lab Results
Hemoglobin A1c 8.7 % (4.0-5.6) H 02/25/24 12:27
Insulin Pump Settings
IP Diabetes Regimen
03/10/24 03/10/24 03/11/24
17:48 22:06 04:14
Glucose 152 H
POC Glucose 189 H 213 H
Meal type: Breakfast
Amount consumed: 25%
Patient Education
[2024-03-11] MEDS: KLOR-CON 40 MEQ PO (08:14)
[2024-03-11] MEDS: TOPROL XL 25 MG PO ×2 (08:15→20:17)
[2024-03-11] MEDS: PLAVIX 75 MG PO (08:15)
[2024-03-11] MEDS: CRESTOR 40 MG PO (08:17)
[2024-03-11] MEDS: VISBIOME 1 CAP PO (08:17)
[2024-03-11] MEDS: ZETIA 10 MG PO (08:17)
[2024-03-11] MEDS: FARXIGA 10 MG PO (08:17)
[2024-03-11] MEDS: LOW STRENGTH ASPIRIN 81 MG PO (08:18)
[2024-03-11] MEDS: NSS (PRESERVATIVE FREE) 10 ML IV ×2 (08:18→20:04)
[2024-03-11] MEDS: PACERONE 400 MG PO ×3 (08:18→22:23)
[2024-03-11] MEDS: FLOMAX 0.4 MG PO (08:18)
[2024-03-11] MEDS: LIDOCAINE 4% PATCH TOPICAL (08:18)
[2024-03-11] MEDS: PROTONIX IV 40 MG IV ×2 (08:19→20:04)
[2024-03-11] MEDS: NSS IV (08:19)
[2024-03-11] MEDS: NOVOLOG FLEXPEN 4 UNITS SC ×3 (08:23→16:11)
[2024-03-11] MEDS: NOVOLOG FLEXPEN-LOW RESISTANCE 1 UNITS SC ×2 (08:23→13:45)
--- NOTE | 2024-03-11 11:11 | W.PN.GI.CBS2 ---
Addendum entered and electronically signed by Rosa Isela Aguayo DO 03/11/24 12:22:
The patient was seen and examined by me independently in collaboration with the nurse practitioner.
Past medical history/social history/medications/allergies/family history reviewed.
Lab data and imaging data reviewed.
GI asked to evaluate patient due to fecal incontinence and diarrhea. Upon review of her medications, there are multiple agents that could be causing her symptoms.
On rectal evaluation, concerning rectal polyp vs. mass, palpated almost circumferentially, abutting the anal verge in the distal rectum; unable to palpate past lesion to normal rectal tissue
Dr. Queen was asked to also evaluate patient who was in agreement with GI rectal exam-- felt it was concerning for likely advanced adenoma
Records form patient's Echocardiograph Tech obtained and reviewed-- recent colonoscopy in 2021 with multiple tubular adenomas removed, given a 3 year recall, due in 2024.
Plan:
-check stool studies-- c.diff pending
-Stop magnesium
-stop colace
-start psyllium BID to help with stool bulking
-discussed with Dr. Blanco-- from a postsurgical perspective, most ideal to perform diagnostic procedures 4 weeks following surgery. Will tentatively plan for flex sig +/- EUS with Dr. Chavez in 4 weeks; patient cleared for d/c plavix one week before
procedure and can remain off of plavix indefinitely following procedure
-suspect she will need staged procedures to remove, if lesion is amenable to endoscopic resection; given this likely encroaches on the anal verge, will probably need to be seen by colorectal as well in follow-up
Addendum entered and electronically signed by EVER Mackenzie 03/11/24 11:49:
will get colorectal consult for abnormal rectal exam
02/2022- colonoscopy Dr. Escobedo multiple polyps 2 sessile in recutm, 4-6 mm in size, 5 mm polyp AC(TA), 5 mm polyp DC(TA), 5 mm polyp TC(no tissues) diverticulosis, -- repeat 3 years
02/2022- EGD Dr. Escobedo - normal esophagus, Z line regular, erythema, normal duodenum bulb second portion of duodenum bx antral gastric mucosa with chronic inflammation, no H pylori, neg metaplasia
Original Note:
Today's Communication / Plan
-
hbg stable total 4 units given 03/05 no further transfusion needed hbg 9.5 today
diarrhea since post-op -- minimal laxative but did have mag given which can increase diarrhea
rectal exam done to rule out impaction and overflow with liquid and solid brown stool
she is also noted with irregular mucosa posteriorly will have Dr. Aguayo repeat ? colitis/ + prior resection, cannot rule out mass
pt with prior resection of polyps with Dr. Escobedo will obtain prior records to check in any prior rectal polyp, masses etc.
pt also with multiple new meds added with surgery ? leading to diarrhea
c-diff pending
cont PPI
trend hbg
platelets improving now normalized
OP follow up for repeat breast imaging per family
cont diet for now
monitor stool and diarrhea --
pr remains on Plavix and ASA post op
Assessment / Plan
-
Pt is a 68yo with hx COPD, hypercholesteremia, NIDDM, tobacco abuse, CKD3a mild MR, and multi vessel CAD presents for elective CAGB x4 on 03/05. She was noted with hbg 11.1 pre-op 02/24 and now post-op anemia with drop to 7.8 with heme + stool. .
She has required 4 units PRBC's since admission and hbg up to 10.9. BUN at baseline. Some drop in platelets post-op. Pt pre-op on ASA 81mg and per staff may have taken some Eliquis prior to admission and pt remains on chronic Ozempic with last
dose over 1 month ago. No other NSAID use. She was also given heparin during surgery 03/05. Hx some chronic GERD/post prandial pain med taken prior to admission and constipation and with some loose stool since admission.
-persistent diarrhea
-irregular mucosa on rectal exam
-anemia requiring transfusion during admission
-heme + brown stool
-loose stool with hx constipation
-s/p CABG 03/05 for multi vessel CAD
-fever 101.2
-thrombocytopenia with normal platelets pre-op
-prior GERD/abdominal pain prior to admission
-hx ? polyps follows with dr. Escobedo prior to admission
-recent abnormal breast imaging due OP follow up
other med problems:
-COPD
-hypercholesterolemia
-NIDDM
-tobacco abuse
-CKD
-mild MR
PLAN:
hbg stable total 4 units given 03/05 no further transfusion needed hbg 9.5 today
diarrhea since post-op -- minimal laxative but did have mag given which can increase diarrhea
rectal exam done to rule out impaction and overflow with liquid and solid brown stool
she is also noted with irregular mucosa posteriorly will have Dr. Aguayo repeat ? colitis/ + prior resection, cannot rule out mass
pt with prior resection of polyps with Dr. Escobedo will obtain prior records to check in any prior rectal polyp, masses etc.
pt also with multiple new meds added with surgery ? leading to diarrhea
c-diff pending
cont PPI
trend hbg
platelets improving now normalized
OP follow up for repeat breast imaging per family
cont diet for now
monitor stool and diarrhea --
pr remains on Plavix and ASA post op
Subjective
Subjective
Date of Service: March 11, 2024
per staff loose stool since surgery on cholesterol lowering diet
Objective
Data Reviewed
Laboratory Data:
Laboratory Results
03/11/24 04:14
03/11/24 04:14
Laboratory Results
PT 15.1 Sec (11.4-14.6) H 03/06/24 04:57
INR 1.16 03/06/24 04:57
APTT 29.5 Sec (23.4-35.0) 03/05/24 13:39
Magnesium 1.9 mg/dl (1.6-2.3) 03/11/24 04:14
Total Bilirubin 0.4 mg/dl (0.2-1.3) 02/25/24 12:27
AST 21 U/L (14-36) 02/25/24 12:27
ALT 15 U/L (0-35) 02/25/24 12:27
Alkaline Phosphatase 77 U/L (38-126) 02/25/24 12:27
Vital Signs and I&O:
Vital Signs
Temp Pulse Resp BP Pulse Ox
98.1 F 85 18 104/49 96
03/11/24 08:00 03/11/24 08:17 03/11/24 08:00 03/11/24 08:17 03/11/24 08:00
I&O
03/10/24 03/11/24 03/12/24
06:59 06:59 06:59
Intake Total 1120 / 1120 440 / 440 120 / 120
Output Total 2880 / 2880 1785 / 1785 175 / 175
Balance -1760 / -1760 -1345 / -1345 -55 / -55
Physical Exam
Physical Exam
HEENT: Anicteric and Moist mucous membranes
Cardiology: Normal Sinus Rhythm
Pulmonary: Clear
GI: Soft, Non Distended, Non Tender and Other (hinds in place)
Rectal: Other (brown liquid stool with piece of formed stool, some irregular mucosa posteriorly on exam ? colitis, prior polyps resection? cannot rule out mass but no active bleeding at this time -- per staff prior rectal tube for ? 1-2 days )
Neuro: Non Focal and Other (slow gait needs assist for walking back to bed )
--- NOTE | 2024-03-11 11:56 | W.PN.URO.CBU ---
Today's Communication / Plan
-
Keep Gandara catheter
Voiding trial when patient is fully ambulatory
Assessment / Plan
-
Post-op urine retention
Diagnosis
-
Date of Service: March 11, 2024
-
Patient Diagnosis:
Post-operative urine retention (CABG x 4 03/05/24)
Subjective
-
Comfortable
Neither patient nor speak much Irish
Objective
-
Vital Signs
Temp Pulse Resp BP Pulse Ox
98.1 F 85 18 104/49 96
03/11/24 08:00 03/11/24 08:17 03/11/24 08:00 03/11/24 08:17 03/11/24 08:00
Intake and Output
03/10/24 03/11/24 03/12/24
06:59 06:59 06:59
Intake Total 1120 / 1120 440 / 440 120 / 120
Output Total 2880 / 2880 1785 / 1785 175 / 175
Balance -1760 / -1760 -1345 / -1345 -55 / -55
Intake:
Oral fluids 1120 / 1120 440 / 440 120 / 120
Output:
Urine, Gandara 480 / 480 1785 / 1785 175 / 175
Straight cath output 2400 / 2400
Other:
How many times incontinent 1
SMALL amount urine
How many times incontinent 1
SATURATED amount urine
Number of unmeasured liquid
stools
Rectum 2 2
Laboratory Results
03/11/24 04:14
03/11/24 04:14
Review of Systems
-
Unable to obtain full review of systems at this time due to: Language Barrier
Physical Exam
-
General - well nourished, no acute distress
Abdomen - soft, non-tender
Genitalia - Gandara draining clear urine
Counseling
-
Keep Gandara catheter: repeat voiding trial when patient is ambulatory
--- NOTE | 2024-03-11 13:19 | PTCARENOTE ---
GI/colorectal/ consults ordered and done.
[2024-03-11 13:48] LABS: Glucose - Point of Care 191 mg/dl (70-99)
[2024-03-11] MEDS: METAMUCIL, KONSYL 1 PACKET PO ×2 (13:50→22:23)
--- NOTE | 2024-03-11 14:34 | CON.CRS ---
Consultation
-
Date/Time Consultation Requested: 03/11/2024, 11:40
Date/Time Consultation Performed: 03/11/2024, 13:30
Requesting Provider: Kelly Hsieh
Performing Provider: Reji Queen MD
Reason for Consultation: rectal mass
Medical History
-
Chief Complaint: diarrhea
History of Present Illness:
68-year-old female with a past medical history of diabetes and COPD presents to [facility] due to an elective CABG on 03/05/2024. She was noted with a hemoglobin 11.1 and she had a hemoglobin drop to 7.8 with heme positive stool. She was
transfused 4 units of packed red blood cells. She has had persistent diarrhea since surgery which prompted a GI consult. She reportedly had a colonoscopy about a year ago with Dr. Escobedo and had polyps removed. There are no prior records available
for review. She has been tested for C. difficile which is pending. She remains on aspirin and Plavix postop. There was an irregular finding on her rectal exam by GI and we requested for consultation.
Past Medical History
Past Medical History: Other (Coronary artery bypass 03/05/2024, respiratory failure postoperatively, anemia, type 2 diabetes, hyperlipidemia, COPD, tachycardia, cigarette smoker, coronary artery disease)
Past Surgical History: Other (See past medical history)
Social History
Tobacco: Smoker
Alcohol: None
Drug: None
Family History
Family History: Reviewed & Not Pertinent
Allergies / Home Medications
Allergy/AdvReac Type Severity Reaction Status Date / Time
Penicillins Allergy Unknown Verified 02/24/24 13:02
�Medication �Instructions �Recorded �Confirmed �Type
aspirin 81 mg tablet 81 mg PO DAILY Blood Clot 02/17/24 03/05/24 History
Prevention/Tx
digoxin 125 mcg (0.125 mg) tablet 125 mcg PO DAILY Heart 02/17/24 03/05/24 History
Disease/Condition
ezetimibe 10 mg tablet 10 mg PO DAILY High Cholesterol 02/17/24 03/05/24 History
fenofibrate 50 mg capsule 200 mg PO DAILY High Cholesterol 02/17/24 03/05/24 History
insulin glargine 100 unit/mL (3 26 unit SC QPM Diabetes 02/17/24 03/05/24 History
mL) subcutaneous pen (Lantus
Solostar U-100 Insulin)
insulin lispro 100 unit/mL 20 unit SC BID Diabetes 02/17/24 03/05/24 History
subcutaneous half-unit pen
(Humalog Felix KwikPen (U-100))
omega-3 fatty acids 1,000 mg PO BID Supplement 02/17/24 03/05/24 History
rosuvastatin 40 mg tablet 40 mg PO DAILY High Cholesterol 02/17/24 03/05/24 History
semaglutide 2 mg/dose (8 mg/3 mL) 2 mg SC QWEEK Diabetes 02/17/24 03/05/24 History
subcutaneous pen injector (Ozempic)
metoprolol succinate 25 mg 25 mg PO DAILY Heart 02/24/24 03/05/24 History
tablet,extended release 24 hr Disease/Condition
Review of Systems
-
History Source: Patient
Abdomen/GI: Diarrhea
A 10 point review of systems was completed, and was negative except as per HPI.
Physical Exam
Vital Signs
Temp 98.1 F 03/11/24 08:00
Pulse 85 03/11/24 11:30
Resp Rate 18 03/11/24 08:00
Blood pressure 102/57 03/11/24 09:27
SaO2 98 03/11/24 12:00
03/10/24 03/11/24 03/12/24
06:59 06:59 06:59
Actual Weight 59 kg 59.3 kg
Body Mass Index (BMI) 23.2
Lab Results / Allergies
03/11/24 04:14
03/11/24 04:14
WBC 6.1 10^3/uL (4.8-10.8) 03/11/24 04:14
Hgb 9.5 g/dL (12.0-16.0) L 03/11/24 04:14
Hct 26.9 % (37.0-47.0) L 03/11/24 04:14
Plt Count 169 10^3/uL (130-400) D 03/11/24 04:14
Abs Immat Gran (auto) 0.0 10^3/uL (0-0.05) 02/25/24 12:27
Neutrophils % 65.4 % (42.2-75.2) 02/25/24 12:27
Allergy/AdvReac Type Severity Reaction Status Date / Time
Penicillins Allergy Unknown Verified 02/24/24 13:02
Physical Exam
General: Well Developed, Well Nourished and No Apparent Distress
GI: Soft, Non Tender and Non Distended
Rectal: Other (Circumferential mass noted from the area of the dentate extending past the tip of the finger)
Data Reviewed
-
Labs: Labs Reviewed by me and Discussed with Physician
Old Records: Reviewed
Assessment / Plan
-
Assessment: 68-year-old female who presented for an elective CABG with anemia postoperatively found to have a rectal mass on exam with associated diarrhea
Plan:
-No plans for urgent surgery at this time
-Will need eventual scope for biopsies
-Follow up with Dr. Queen in 6 weeks
--- NOTE | 2024-03-11 14:46 | PTCARENOTE ---
assumed care of pt from previous shift RN, sinus rhythm on tele, VSS, assisted pt w toileting and hygiene care. pt placed in chair w chair alarm pad in place. safety precautions reviewed w the pt and questions encouraged.
--- NOTE | 2024-03-11 15:20 | CM ---
CM following for DC planning needs.
Spoke w/ therapy this AM. Pt. still not progressing in therapy and recommendation is for SNF. ?Unable to tolerate 3+ hours of PT/OT per day.
Met w/ patient and spouse at bedside. With assistance of Tajik change manager, we discussed rehab placement. Pt. is agreeable to this. She would prefer facility within close proximity to her home in [place].
Initiated referrals to: [facility], [facility], [facility], [facility] (received response - unable to accept), Rehab @ [facility] (received response- unable to accept), [facility], and [facility].
Will also send referral to [facility] @ for consideration.
Will need authorization from [facility] prior to transfer.
Will follow closely.
[2024-03-11 16:10] LABS: Glucose - Point of Care 144 mg/dl (70-99)
[2024-03-11] MEDS: NOVOLOG FLEXPEN-LOW RESISTANCE SC (16:12)
--- NOTE | 2024-03-11 21:35 | PTCARENOTE ---
Tele remains SR, VSS, and sating 95% RA. Lungs clear throughout. 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 Pt w/ trace pedal edema, and b/l pedal pulses positive w/ doppler. Patient denies any chest discomfort. Pt turning
self in bed. Sternal dressing C/D/I, sternal precautions maintained. Gandara draining yellow urine. Bed alarm remains active, call alexander within reach.
[2024-03-11 22:23] LABS: Glucose - Point of Care 140 mg/dl (70-99)
[2024-03-11] MEDS: LANTUS 0.2 UNITS SC (22:23)
--- NOTE | 2024-03-11 23:50 | PTCARENOTE ---
Patient refused oral hygiene care, educated pt on the importance. Despite education pt refuses. Tele remains SR, HR in the 80's at rest. VSS. Bed alarm remains active.
--- NOTE | 2024-03-11 23:58 | CON.MD ---
Consultation - Medical
-
68 yr old F recently diagnosed with multivessel coronary artery disease, admitted 03/05/2024 for CABGx4. Psychiatry consulted due to concerns of possible underlying depression interfering with pts recovery as she has been struggling with engaging in
physical recovery and has appeared depressed.
Pt is Uzbek speaking , used insurance special agent. Pts was present at bedside - spoke to pt both with present and one on one. seemed to think that I was there because pt says 'I just want to ' when she is moving around- as per
insurance special agent he said to his that I am there because 'they' think pt is suicidal. I did reassure them that this was not the impression and that she can express her frustrations without worry. Pt said that she has no desire to and is not
depressed - reported that when she becomes frustrated she says this as an expression of frustration. Has been feeling frustrated with physical limitations and some pain, which likely is why she may at times look depressed. Pt reported 'my body
doesn't move the way I want it to' though she does understand that recovery is not an overnight process. She does report some anxiety but this is described as mainly feeling anxious when isn't there, since youth and relationship
described as close and supportive.
Both she and deny history of any psychiatric illness for pt, and no FH of such either.
Adjustment d/o
MSE: calm,cooperative,pleasant,speech is normal rate & rhythm,,mood is frustrated, affect is appropriate, thought process is logical & goal directed, thought content: denies SI/HI/AVH/delusions. AAOx3. Memory not formally tested. Insight fair.
Judgement fair
No acute psychiatric intervention warranted at this time. Pt denies presence of significant psychiatric sxs. Psychiatry will sign off.
[2024-03-12] VITALS (7 sets, daily range): BP systolic 96–131; BP diastolic 49–60; PULSE 84; BMI 22.8
--- NOTE | 2024-03-12 04:49 | PTCARENOTE ---
Patient ambulated w/ RW and required one assist to the bathroom. Gait steady w/ generalized weakness. Patient had a total of 3 inc episodes of BM thus shift--see flowsheet for further details. Gandara maintained and draining yellow urine. Tele rhythm
remains SR. Call alexander within reach.
--- NOTE | 2024-03-12 06:12 | W.PN.CT ---
Addendum entered and electronically signed by Jarad Blanco MD 03/12/24 08:05:
I saw and examined the patient.
The PA's note was reviewed and I agree with the note.
Comment:
POD#7
Pt. w/ fecal incontinence, GI noted rectal mass concerning for possible CA. Plan for intervention in 4 weeks (flex sig/EUS) - OK to hold plavix prior and not restart
Urinary retention w/ hinds replaced - urology for outpatient void trial when patient fully ambulatory ? - pt ambulates currently - on flomax since 03/09. - will discuss d/c hinds at [facility]
F/U psychiatry evaluation for depression
OOB/IS/PT/OT - will likely require SNF on D/C
ASA/plavix, BB, amio, crestor
Original Note:
Today's Communication / Plan
-
-pod #7
-no new issues overnight. Hemodynamically and neurologically intact, follows commands
-new sessile rectal mass, fecal incontinence - appreciate GI and Colorectal input. Tentative plan for flex sig +/- EUS with Dr. Chavez in 4 weeks (Plavix will be stopped prior to procedure)
-Hinds since 03/10 for urinary retention to keep until fully ambulatory per Urology - appreciate input. Continue Flomax
-BP is improving, tolerating Toprol
-wt has been trending down (from 136 lbs on 03/07 to 128 lbs today. wt was 125 preop)
-Current meds (Amio, Asa, Plavix, Zetia, Crestor, Toprol XL, Flomax)
-continue PT/OT
-encourage IS, OOB
-appreciate CM input regarding SNF
Assessment / Plan
-
Assessment:
-S/P CABG x 4 (POLO to LAD, GSV to D2, GSV to OM3, GSV to RPLB)/Takedown of POLO (narrow pedicle w/ partial skeletonization)/Endoscopic harvest/prep of RLE GSV, by Dr. Blanco, 03/05/24, pod#7
-Multivessel CAD
-Mild MR
-Calcified prox Asc. aorta
-Severe sessile atheroma of descending aorta
-LVEF 50% to 55% postop, per intraop BRENDA
-Sinus tachycardia
-HTN
-Hyperlipidemia
-T2DM (insulin dependent, A1C 8.7)
-COPD
-Current 'light' Tobacco use (e-cigarette)
-CKD3a
-S/P
-Acute intraop/postop blood loss/anemia (transfused 3 PRBC's intraop, 1 PRBC postop)
-Acute intraop/postop coagulopathy (transfused 1 FFP postop)
-Acute postop thrombocytopenia (stable)
-Acute postop atelectasis
-Acute postop hypovolemia with subsequent hypervolemia
-Acute postop urinary retention S/P straight cathed x 3- Hinds reinserted
-Acute postop fecal incontinence
-New finding of sessile mass in rectum on exam - will need outpatient colonoscopy in 4 weeks
Discussed patient care with: Nursing and Care Team
Subjective
Procedure
CABG x 4 (POLO to LAD, GSV to D2, GSV to OM3, GSV to RPLB)/Takedown of POLO (narrow pedicle w/ partial skeletonization)/Endoscopic harvest/prep of RLE GSV, by Dr. Blanco, 03/05/24
-
Date of Service: March 12, 2024
Objective Data
-
Lab Results
03/11/24 04:14
03/11/24 04:14
PT 15.1 Sec (11.4-14.6) H 03/06/24 04:57
INR 1.16 03/06/24 04:57
APTT 29.5 Sec (23.4-35.0) 03/05/24 13:39
Vital Signs
Vital Signs
Temp Pulse Resp BP Pulse Ox
98.5 F 84 16 135/58 97
03/11/24 22:20 03/11/24 23:00 03/11/24 22:20 03/11/24 22:23 03/11/24 22:20
CT Intake/Output/Weight
03/11/24 03/11/24 03/12/24
06:59 18:59 06:59
Intake Total 200 / 440 220 / 220
Output Total 1020 / 1785 735 / 735
Balance -820 / -1345 -515 / -515
SaO2: 97
--- NOTE | 2024-03-12 07:45 | PN.DE.MGMTRT ---
Insulin Management
- -
03/12/2024: Diabetes Management Consult F/U:
68 year old Divehi speaking Female admitted for elective CABG. PMH: MVCAD, Calcified prox Asc. Aorta, HTN, HLD, COPD, Current Tobacco use (e-cigarette), CKD3a, and IDDM. Now s/p CABG x 4 on 03/05/2024. A1C 8.7%, Cr 1.6, eGFR 34.70.
Chart indicates she was taking Lantus 26 units @ HS, Ozempic and Lispro 20 units BID prior to admission. Uses Omar CGM for glucose monitoring.
Pt was managed on continuos insulin infusion x48 hrs post-op and was transitioned off drip on 03/07 to SQ insulin.
Pt awake, resting up in chair, offers no complaints, able to discuss diabetes mgt.
03/11 premeal glucose range 144 to 191. Received Lantus 20 units @ HS, FBG Pending
Will make no changes to current regimen. Continue Farxiga 10 mg daily, NovoLog 4 units AC, Lantus 20 units @ HS and low corrective insulin with meals.
Will follow and make further insulin adjustments if needed.
Diabetes History
- -
Type of Diabetes: 2 requiring insulin
Pre-Admission Diabetes Regimen
Lab Results
Hemoglobin A1c 8.7 % (4.0-5.6) H 02/25/24 12:27
Insulin Pump Settings
IP Diabetes Regimen
03/11/24 03/11/24 03/11/24
13:43 16:08 22:22
POC Glucose 191 H 144 H 140 H
Patient Education
--- NOTE | 2024-03-12 08:35 | PTCARENOTE ---
assumed care of pt from previous shift RN, sinus rhythm on tele, VSS, + peripheral pulses, +1 edema to bilateral lower extremities. Lungs diminished, coughing and deep breathing encouraged. +bs, incont brown/gelatinase stool, incont care provided,
hinds care completed. Surgical dressing intact, sutures intact, PIV flushes easily. Plan of care reviewed w the pt and questions encouraged.
--- NOTE | 2024-03-12 08:56 | W.PN.CD ---
Today's Communication / Plan
-
cont. to push ambulation
Impression / Plan
-
BACKGROUND: Bulgarian speaking 68F with type II DM (on insulin), COPD, HLD and MVCAD presents for CABG
Primary Client Support Consultant: Dr. Mcqueen
IMPRESSION/PLAN:
CAD S/P CABG x 4 (POLO to LAD, GSV to D2, GSV to OM3, GSV to RPLB) by Dr. Blanco on 03/05/2024
-Pre-LVEF 50%, post LVEF 55% with minor unchanged inferobasal hypokinesis
-EKG sinus rhythm, PACs, left axis, & RBBB which is new
-off all drips
-ambulated with mild dizziness
Anemia, stable
Diarrhea, rectal mass: GI consulted, plan for flex sig in 4 weeks post-op; stopped Mg
HTN, Trending up slightly
Sinus tachycardia, started on digoxin by her PCP, no plans to resume. on metop 25 bid now.
Mild mitral regurgitation
HLD, on rosuvastatin 40mg
Type II DM, Hgba1c 8.7%
COPD, no acute exacerbation
Current smoker
SUBJECTIVE:
Feeling better, describes mild dizziness with ambulation
Physical Exam
Vital Signs/Labs
Vital Signs
Temp Pulse Resp BP Pulse Ox
37.2 C 89 18 129/60 97
03/12/24 04:03 03/12/24 06:00 03/12/24 04:03 03/12/24 04:03 03/12/24 04:03
03/11/24 03/12/24 03/13/24
06:59 06:59 06:59
Actual Weight 59.3 kg 58.4 kg
03/11/24 04:14
PT 15.1 Sec (11.4-14.6) H 03/06/24 04:57
INR 1.16 03/06/24 04:57
APTT 29.5 Sec (23.4-35.0) 03/05/24 13:39
Magnesium 1.9 mg/dl (1.6-2.3) 03/11/24 04:14
Physical Exam
Constitutional: No acute distress
Cardiovascular: Rhythm & rate is regular, Pedal edema is absent, Systolic murmur absent and Diastolic murmur absent
Respiratory: Respiratory effort normal
Neuro/Psych: AO x 3
Data Reviewed
-
Date of Service: March 12, 2024
Medical Decision Making: Reviewed Test Results
Labs: Labs Reviewed by me
[2024-03-12] MEDS: NSS IV (09:17)
[2024-03-12 09:33] LABS: Glucose - Point of Care 88 mg/dl (70-99)
[2024-03-12] MEDS: NOVOLOG FLEXPEN-LOW RESISTANCE SC ×3 (09:33→16:17)
[2024-03-12] MEDS: NOVOLOG FLEXPEN 4 UNITS SC ×2 (09:33→16:16)
[2024-03-12] MEDS: PACERONE 400 MG PO ×3 (09:34→21:51)
[2024-03-12] MEDS: PROTONIX IV 40 MG IV ×2 (09:34→20:59)
[2024-03-12] MEDS: NSS (PRESERVATIVE FREE) 10 ML IV ×2 (09:34→20:59)
[2024-03-12] MEDS: VISBIOME 1 CAP PO (09:35)
[2024-03-12] MEDS: FLOMAX 0.4 MG PO (09:35)
[2024-03-12] MEDS: PLAVIX 75 MG PO (09:35)
[2024-03-12] MEDS: LIDOCAINE 4% PATCH TOPICAL (09:35)
[2024-03-12] MEDS: TOPROL XL 25 MG PO ×2 (09:35→20:59)
[2024-03-12] MEDS: ZETIA 10 MG PO (09:35)
[2024-03-12] MEDS: FARXIGA 10 MG PO (09:35)
[2024-03-12] MEDS: CRESTOR 40 MG PO (09:35)
[2024-03-12] MEDS: METAMUCIL, KONSYL 1 PACKET PO ×2 (09:35→21:00)
[2024-03-12] MEDS: LOW STRENGTH ASPIRIN 81 MG PO (09:35)
[2024-03-12 10:30] LABS: Blood Urea Nitrogen 27 mg/dl (7-17); Calcium 8.1 mg/dl (8.4-10.2); Carbon Dioxide 25 mmol/L (22-30); Chloride 102 mmol/L (98-107); Estimated Creatinine Clearance 34 ml/min; Glucose 159 mg/dl (70-99); Potassium 3.9 mmol/L (3.5-5.1); Sodium 137 mmol/L (135-145); eGFR 44.51
[2024-03-12 12:35] LABS: Glucose - Point of Care 216 mg/dl (70-99)
[2024-03-12] MEDS: NOVOLOG FLEXPEN SC (12:39)
--- NOTE | 2024-03-12 12:40 | PTCARENOTE ---
Tap water enemas administered x2 as ordered.
--- NOTE | 2024-03-12 15:08 | CM ---
CM following for DC planning needs.
Met w/ patient and spouse at bedside.
At this time, plan is for SNF placement at time of DC. There are still some pending medical tests; patient is not yet ready for DC today.
Referrals sent to facilities close to patient's home in [place]/ per their choice.
The following facilities have expressed interest in accepting patient:
[facility], [facility].
Provided pt. and spouse with listing of area SNFs. They will review.
Once medically stable, will need to check on bed availability and confirm that pt. is agreeable to facility. Will then need insurance approval.
Will plan to follow up on Friday for transfer if stable and if approved by insurance.
--- NOTE | 2024-03-12 15:32 | PTCARENOTE ---
pt sent to GI lab.
[2024-03-12 16:16] LABS: Glucose - Point of Care 115 mg/dl (70-99)
--- NOTE | 2024-03-12 17:08 | PTCARENOTE ---
pt returned from GI lab, tolerated diet.
--- NOTE | 2024-03-12 20:00 | PTCARENOTE ---
Received pt from [facility]. pt resting comfortably in bed. NSR on monitor. VSS. pt is AAOx4, but also withdrawn, requires ongoing encouragement to participate in ADLs. heart sounds audible, radial and DP pulses palpable, trace RAFAEL. lungs diminished
throughout, spo2 98% on RA. +BS x 4 quadrants, abdomen soft non tender, pt incontinent of stool, GI consulted-will need follow up out pt/rehab. pt voiding clear yellow urine via hinds catheter, will be d/c at 0000. surgical sites maintained. PIV
maintained. call alexander within reach. will continue to monitor.
[2024-03-12 21:15] LABS: Glucose - Point of Care 254 mg/dl (70-99)
[2024-03-12] MEDS: LANTUS 0.2 UNITS SC (21:51)
[2024-03-13] VITALS (9 sets, daily range): BP systolic 97–127; BP diastolic 52–62; PULSE 79; BMI 21.0
--- NOTE | 2024-03-13 | PTCARENOTE ---
Pt assessment unchanged. NSR on monitor. VSS. continued incontinence of stool. on going caitlyn care being provided. foam dressing applied to sacrum and barrier cream on on buttock. hinds catheter removed per orders. pt will be due to void at 0520.
call alexander within reach. will continue to monitor.
--- NOTE | 2024-03-13 03:15 | PTCARENOTE ---
No urine output since removal of hinds catheter at 2320. bladder scanned at 0315 for 421mls of urine. CVPA made aware. per CVPA, we will wait until 0500 to intervene. pt will be straight cathed if she cannot void by 0500, per CVPA.
[2024-03-13 03:47] LABS: Hemoglobin 8.5 g/dL (12.0-16.0); Mean Corpuscular Hgb 28.8 pg (27.0-31.0); Mean Corpuscular Volume 84.7 fL (81.0-99.0); Mean Platelet Volume 10.5 fL (7.4-10.4); Platelet Count 225 10^3/uL (130-400); Red Blood Cell Count 2.95 10^6/uL (4.20-5.40); Red Cell Dist. Width 13.6 % (11.5-14.5); White Blood Cell Count 10.3 10^3/uL (4.8-10.8)
[2024-03-13 03:50] LABS: Blood Urea Nitrogen 27 mg/dl (7-17); Carbon Dioxide 25 mmol/L (22-30); Chloride 105 mmol/L (98-107); Estimated Creatinine Clearance 37 ml/min; Glucose 168 mg/dl (70-99); Potassium 3.9 mmol/L (3.5-5.1); Sodium 139 mmol/L (135-145)
--- NOTE | 2024-03-13 05:30 | PTCARENOTE ---
Pt bladder scanned at 0500. 557ml of urine was scanned. pt was assisted up to void but was unable to. pt was straight cathed for 450mls of urine. will continue to monitor.
--- NOTE | 2024-03-13 06:12 | W.PN.CT ---
Addendum entered and electronically signed by Jarad Blanco MD 03/13/24 09:04:
I saw and examined the patient.
The PA's note was reviewed and I agree with the note.
Comment:
Attempted voiding trail, given fecal incontinence would ideally like to avoid indwelling hinds, however pt w/ continue retention requiring straight cath - will replace hinds if this continues
Greatly appreciate the assistance and expertise of my GI colleagues - F/U Bx results - start ancef/flagyl
Hgb 8.5 from 9.5 despite autodiuresis w/ 1775mL UO over past 24h - follow closely
Creat stable
OOB/IS/ambulate
Inpatient mgmt for now - potential SNF once medically stable
Original Note:
Today's Communication / Plan
-
-pod #8
-Hinds taken out at 11 pm 03/12-- unable to void at 5 am. Bladder scan revealed >500cc. Pt was straight cathed for 450 cc. Flomax since 03/09
-s/p sigmoidoscopy 03/12 revealed congested, inflamed, ulcerated and pseudomembrane-covered mucosa in rectum and scattered throughout the sigmoid colon. Biopsied. Looks ischemic vs infectious - rare for ischemia to affect the rectum
-pt follows commands, no focal deficits, lethargic
-weaned off O2
-Hg 8.5 (9.5 on 03/11)- follow
-Cr stable 1.2
-UO 825/2150 in 12/24 hrs (autodiuresing). Wt today 118 lbs(125 preop)
-dispo: SNF when medically ready
-appreciate everyone's input
Assessment / Plan
-
Assessment:
-S/P CABG x 4 (POLO to LAD, GSV to D2, GSV to OM3, GSV to RPLB)/Takedown of POLO (narrow pedicle w/ partial skeletonization)/Endoscopic harvest/prep of RLE GSV, by Dr. Blanco, 11/8/24, pod#8
-Multivessel CAD
-Mild MR
-Calcified prox Asc. aorta
-Severe sessile atheroma of descending aorta
-LVEF 50% to 55% postop, per intraop BRENDA
-Sinus tachycardia
-HTN
-Hyperlipidemia
-T2DM (insulin dependent, A1C 8.7)
-COPD
-Current 'light' Tobacco use (e-cigarette)
-CKD3a
-S/P
-Acute intraop/postop blood loss/anemia (transfused 3 PRBC's intraop, 1 PRBC postop)
-Acute intraop/postop coagulopathy (transfused 1 FFP postop)
-Acute postop thrombocytopenia (stable)
-Acute postop atelectasis
-Acute postop hypovolemia with subsequent hypervolemia
-Acute postop urinary retention S/P straight cathed x 3- Hinds reinserted
-Acute postop fecal incontinence
-New finding of sessile mass in rectum on exam - will need outpatient colonoscopy in 4 weeks
-s/p Sigmoidoscopy 03/12/24: Congested, inflamed, ulcerated and pseudomembrane-covered mucosa circumferentially in rectum, and scattered throughout the sigmoid colon. Biopsied.
Looks ischemic vs infectious - rare for ischemia to affect the rectum
Discussed patient care with: Nursing and Care Team
Subjective
Procedure
CABG x 4 (POLO to LAD, GSV to D2, GSV to OM3, GSV to RPLB)/Takedown of POLO (narrow pedicle w/ partial skeletonization)/Endoscopic harvest/prep of RLE GSV, by Dr. Blanco, 03/05/24
-
Date of Service: March 13, 2024
Objective Data
-
Lab Results
03/13/24 03:26
03/13/24 03:26
PT 15.1 Sec (11.4-14.6) H 03/06/24 04:57
INR 1.16 03/06/24 04:57
APTT 29.5 Sec (23.4-35.0) 03/05/24 13:39
Vital Signs
Vital Signs
Temp Pulse Resp BP Pulse Ox
97.8 F 80 18 127/54 98
03/13/24 05:00 03/13/24 05:14 03/13/24 05:00 03/13/24 05:14 03/13/24 05:14
CT Intake/Output/Weight
03/12/24 03/12/24 03/13/24
06:59 18:59 06:59
Intake Total 240 / 460 200 / 200
Output Total 850 / 1585 950 / 1325 375 / 1325
Balance -610 / -1125 -750 / -1125 -375 / -1125
SaO2: 98
Physical Exam
-
General: Awake and Oriented (somnolent)
Cardiovascular: Regular rate & rhythm, No Murmurs and No Rub
Respiratory: Clear and Decreased Breath Sounds
Sternum: Stable
Incision: Clean, Dry and Dressing Intact
Extremities: Other (trace edema feet b/l)
Data Reviewed
-
Lab Results: Results Reviewed
Medications: Active Meds Reviewed
Chest X-Ray: Report Reviewed and Image Reviewed
ECG: Report Reviewed and Image Reviewed
--- NOTE | 2024-03-13 08:00 | PTCARENOTE ---
Assumed care of patient. Walking rounds completed with previous RN. Pt assessed while she was sitting in the chair. Pt drowsy, but will awaken to voice. Oriented x4. [place] with equal strength throughout. NSR on tele with rates in the 70s. BP stable
118/52. Bilateral radial pulses palpable. Bilateral DP pulses weakly palpable, verified with doppler. +1 edema to lower extremities. POX 98% on RA. Lungs diminished in the bases. Nonproductive, weak cough. IS encouraged-1000mL achieved. Abdomen
soft, nontender. +BS. No stool noted at this time. Due to void post straight cath. Sternal incision covered with antibacterial dressing, removed, incision approximated, no drainage. Old chest tube sites approximated with sutures. Right groin
puncture ADAM. Right SVG harvest incisions approximated and ADAM, no drainage. Right forearm PIV painful, removed. Right AC 22g PIV inserted. See MAR for medication administration. See worklist for complete nursing assessment. Plan of care reviewed.
[2024-03-13] MEDS: NOVOLOG FLEXPEN 4 UNITS SC ×3 (08:15→17:18)
[2024-03-13] MEDS: NOVOLOG FLEXPEN-LOW RESISTANCE SC (08:15)
[2024-03-13 08:18] LABS: Glucose - Point of Care 145 mg/dl (70-99)
[2024-03-13] MEDS: TOPROL XL 25 MG PO ×2 (08:18→20:12)
[2024-03-13] MEDS: CRESTOR 40 MG PO (08:18)
[2024-03-13] MEDS: FLOMAX 0.4 MG PO (08:18)
[2024-03-13] MEDS: NSS (PRESERVATIVE FREE) 10 ML IV ×2 (08:18→20:12)
[2024-03-13] MEDS: PROTONIX IV 40 MG IV ×2 (08:18→20:12)
[2024-03-13] MEDS: LIDOCAINE 4% PATCH TOPICAL (08:19)
[2024-03-13] MEDS: PLAVIX 75 MG PO (08:19)
[2024-03-13] MEDS: METAMUCIL, KONSYL 1 PACKET PO ×2 (08:19→20:11)
[2024-03-13] MEDS: FARXIGA 10 MG PO (08:19)
[2024-03-13] MEDS: PACERONE 400 MG PO ×3 (08:19→22:30)
[2024-03-13] MEDS: ZETIA 10 MG PO (08:19)
[2024-03-13] MEDS: VISBIOME 1 CAP PO (08:19)
[2024-03-13] MEDS: LOW STRENGTH ASPIRIN 81 MG PO (08:19)
[2024-03-13] MEDS: NSS IV (10:09)
--- NOTE | 2024-03-13 11:16 | W.PN.CD ---
Today's Communication / Plan
-
Continue ambulating as able
Impression / Plan
-
BACKGROUND: Welsh speaking 68F with type II DM (on insulin), COPD, HLD and MVCAD presents for CABG
Primary Rover Tender: Dr. Mcqueen
IMPRESSION/PLAN:
CAD S/P CABG x 4 (POLO to LAD, GSV to D2, GSV to OM3, GSV to RPLB) by Dr. Blanco on 03/05/2024
-Pre-LVEF 50%, post LVEF 55% with minor unchanged inferobasal hypokinesis
-EKG sinus rhythm, PACs, left axis, & RBBB which is new
-off all drips
-ambulating
Anemia, stable
Diarrhea, rectal mass: GI consulted, plan for flex sig in 4 weeks post-op; stopped Mg
HTN, Trending up slightly
Sinus tachycardia, started on digoxin by her PCP, no plans to resume. on metop 25 bid now.
Mild mitral regurgitation
HLD, on rosuvastatin 40mg
Type II DM, Hgba1c 8.7%
COPD, no acute exacerbation
Current smoker
SUBJECTIVE:
Ambulating improved
Physical Exam
Vital Signs/Labs
Vital Signs
Temp Pulse Resp BP Pulse Ox
98.2 F 75 16 118/52 98
03/13/24 08:00 03/13/24 10:00 03/13/24 08:00 03/13/24 08:10 03/13/24 08:00
03/12/24 03/13/24 03/14/24
06:59 06:59 06:59
Actual Weight 128 lb 11.999 oz 118 lb 9.739 oz
03/13/24 03:26
PT 15.1 Sec (11.4-14.6) H 03/06/24 04:57
INR 1.16 03/06/24 04:57
APTT 29.5 Sec (23.4-35.0) 03/05/24 13:39
Magnesium 1.9 mg/dl (1.6-2.3) 03/11/24 04:14
Physical Exam
Constitutional: No acute distress
EENT: Anicteric
Cardiovascular: Rhythm & rate is regular and Pedal edema is absent
Respiratory: Respiratory effort normal and Lungs clear to auscul.
GI: Soft
Neuro/Psych: Alert and Oriented
Data Reviewed
-
Date of Service: March 13, 2024
EKG: Tracing Personally Visualized and interpreted
Echo: Report Reviewed by me
Labs: Labs Reviewed by me
[2024-03-13] MEDS: LEVAQUIN 500 MG PO (11:54)
[2024-03-13] MEDS: NOVOLOG FLEXPEN-LOW RESISTANCE 1 UNITS SC (11:55)
[2024-03-13 11:57] LABS: Glucose - Point of Care 179 mg/dl (70-99)
--- NOTE | 2024-03-13 12:00 | PTCARENOTE ---
Pt reassessed. Pt unmotivated to be involved with care, constant encouragement required. NSR on tele with rates in the 70s. BP 97/62. POX 98% on RA. Surgical sites stable. CBC obtained. Pt bladder scanned for 440mL, CT RECRUITING COORDINATOR made aware.
[2024-03-13 12:14] LABS: Hematocrit 24.5 % (37.0-47.0); Hemoglobin 8.4 g/dL (12.0-16.0); Mean Corp Hgb Conc. 34.3 g/dL (33.0-37.0); Mean Corpuscular Hgb 29.1 pg (27.0-31.0); Mean Corpuscular Volume 84.8 fL (81.0-99.0); Mean Platelet Volume 10.7 fL (7.4-10.4); Platelet Count 224 10^3/uL (130-400); Red Blood Cell Count 2.89 10^6/uL (4.20-5.40); Red Cell Dist. Width 13.6 % (11.5-14.5); White Blood Cell Count 9.5 10^3/uL (4.8-10.8)
--- NOTE | 2024-03-13 13:45 | PTCARENOTE ---
Gandara catheter placed per orders. Pt tolerated.
[2024-03-13] MEDS: FLAGYL 500 MG PO ×2 (15:19→22:30)
--- NOTE | 2024-03-13 15:30 | PTCARENOTE ---
Pt reassessed. PT at bedside. Assisted OOB to ambulate in the rosen with rolling walker. VSS. Gandara draining adequate amounts of clear arlen urine. No other acute changes from previous assessment.
[2024-03-13] MEDS: NOVOLOG FLEXPEN-LOW RESISTANCE 2 UNITS SC (17:18)
[2024-03-13 17:22] LABS: Glucose - Point of Care 239 mg/dl (70-99)
--- NOTE | 2024-03-13 20:00 | PTCARENOTE ---
assumed care of pt from previous RN. pt A&Ox4, resting in bed at time of assessment. pt withdrawn and w/ a flat affect. SR on tele-monitor. POX 95% on RA. abd s/n, +BS. hinds catheter draining clear, yellow urine. all surgical sites stable. PIV
intact. see worklist for complete nursing assessment, interventions, VS, and I&Os.
[2024-03-13] MEDS: TYLENOL 1000 MG PO (20:28)
[2024-03-13 22:28] LABS: Glucose - Point of Care 159 mg/dl (70-99)
[2024-03-13] MEDS: DESYREL 50 MG PO (22:30)
[2024-03-13] MEDS: LANTUS 0.2 UNITS SC (22:30)
[2024-03-13] MEDS: ROXICODONE 5 MG PO (23:35)
[2024-03-14] VITALS (17 sets, daily range): BP systolic 72–126; BP diastolic 42–83; PULSE 71; O2SAT 99; BMI 22.6
--- NOTE | 2024-03-14 00:15 | PTCARENOTE ---
assessment remains unchanged. VSS.
[2024-03-14] MEDS: ZOFRAN 4 MG IV (02:05)
--- NOTE | 2024-03-14 04:45 | PTCARENOTE ---
assessment remains unchanged. VSS. AM labs collected and sent. EKG obtained.
[2024-03-14 05:11] LABS: Hematocrit 23.2 % (37.0-47.0); Mean Corp Hgb Conc. 34.5 g/dL (33.0-37.0); Mean Corpuscular Hgb 29.2 pg (27.0-31.0); Mean Corpuscular Volume 84.7 fL (81.0-99.0); Mean Platelet Volume 10.7 fL (7.4-10.4); Platelet Count 221 10^3/uL (130-400); Red Blood Cell Count 2.74 10^6/uL (4.20-5.40); Red Cell Dist. Width 13.5 % (11.5-14.5); White Blood Cell Count 10.2 10^3/uL (4.8-10.8)
[2024-03-14 05:35] LABS: Blood Urea Nitrogen 30 mg/dl (7-17); Calcium 7.4 mg/dl (8.4-10.2); Carbon Dioxide 26 mmol/L (22-30); Chloride 106 mmol/L (98-107); Estimated Creatinine Clearance 34 ml/min; Glucose 119 mg/dl (70-99); Potassium 4.7 mmol/L (3.5-5.1); Sodium 137 mmol/L (135-145); eGFR 44.51
--- NOTE | 2024-03-14 06:11 | W.PN.CT ---
Addendum entered and electronically signed by Jarad Blanco MD 03/14/24 09:49:
I saw and examined the patient.
The PA's note was reviewed and I agree with the note.
Comment:
Pt. looks good this AM
Continue prophylactic ABX, f/u Bx results - appreciate the assistance of my GI colleagues
Gandara replaced secondary to retention - continue flomax - will maintain for now
Hgb 8.0 from 8.5 continue to follow daily
OOB/IS/ambulate
Original Note:
Today's Communication / Plan
-
pod #9
Gandara replaced due to retention. TOV per urology. Continue Flomax.
Difficulty sleeping last night. Trazodone 50 mg x 1 given. Patient was able to sleep following this. She did continue complaining of significant generalized discomfort. A single dose of oxycodone was given.
s/p sigmoidoscopy 03/12 revealed congested, inflamed, ulcerated and pseudomembrane-covered mucosa in rectum and scattered throughout the sigmoid colon. Biopsied. Looks ischemic vs infectious - rare for ischemia to affect the rectum
Placed on Levaquin and Flagyl for colitis. Continue. Afebrile. No leukocytosis on this morning's CBC.
pt follows commands, no focal deficits, lethargic
Stable on room air
Hg 8.0 which is down from 8.5. No signs of active bleeding. Note patient had heme positive stool on admission and this should be watched closely directly given her colitis.
Labs otherwise stable
dispo: SNF when medically ready
appreciate everyone's input
Assessment / Plan
-
Assessment:
-S/P CABG x 4 (POLO to LAD, GSV to D2, GSV to OM3, GSV to RPLB)/Takedown of POLO (narrow pedicle w/ partial skeletonization)/Endoscopic harvest/prep of RLE GSV, by Dr. Blanco, 03/05/24, pod#8
-Multivessel CAD
-Mild MR
-Calcified prox Asc. aorta
-Severe sessile atheroma of descending aorta
-LVEF 50% to 55% postop, per intraop BRENDA
-Sinus tachycardia
-HTN
-Hyperlipidemia
-T2DM (insulin dependent, A1C 8.7)
-COPD
-Current 'light' Tobacco use (e-cigarette)
-CKD3a
-S/P
-Acute intraop/postop blood loss/anemia (transfused 3 PRBC's intraop, 1 PRBC postop)
-Acute intraop/postop coagulopathy (transfused 1 FFP postop)
-Acute postop thrombocytopenia (stable)
-Acute postop atelectasis
-Acute postop hypovolemia with subsequent hypervolemia
-Acute postop urinary retention S/P straight cathed x 3- Gandara reinserted
-Acute postop fecal incontinence
-New finding of sessile mass in rectum on exam - will need outpatient colonoscopy in 4 weeks
-s/p Sigmoidoscopy 03/12/24: Congested, inflamed, ulcerated and pseudomembrane-covered mucosa circumferentially in rectum, and scattered throughout the sigmoid colon. Biopsied.
Looks ischemic vs infectious - rare for ischemia to affect the rectum
Subjective
Procedure
CABG x 4 (POLO to LAD, GSV to D2, GSV to OM3, GSV to RPLB)/Takedown of POLO (narrow pedicle w/ partial skeletonization)/Endoscopic harvest/prep of RLE GSV, by Dr. Blanco, 03/05/24
-
Date of Service: March 14, 2024
Difficulty sleeping overnight. Eventually was able to sleep after Trazodone & oxycodone.
No other new concerns.
Objective Data
-
Lab Results
03/14/24 04:57
03/14/24 04:57
PT 15.1 Sec (11.4-14.6) H 03/06/24 04:57
INR 1.16 03/06/24 04:57
APTT 29.5 Sec (23.4-35.0) 03/05/24 13:39
Vital Signs
Vital Signs
Temp Pulse Resp BP Pulse Ox
97.4 F 66 12 107/51 98
03/14/24 04:45 03/14/24 04:42 03/14/24 04:45 03/14/24 04:42 03/14/24 04:45
CT Intake/Output/Weight
03/13/24 03/13/24 03/14/24
06:59 18:59 06:59
Intake Total 480 / 480
Output Total 825 / 1775 750 / 1400 650 / 1400
Balance -825 / -1575 -270 / -920 -650 / -920
SaO2: 98
Physical Exam
-
General: Awake
Cardiovascular: Regular rate & rhythm
Respiratory: Clear
Sternum: Stable
Incision: Clean, Dry and Intact
Extremities: No Edema
Data Reviewed
-
Lab Results: Results Reviewed
Medications: Active Meds Reviewed
Chest X-Ray: Report Reviewed and Image Reviewed
[2024-03-14] MEDS: PACERONE 400 MG PO ×3 (08:59→21:11)
[2024-03-14] MEDS: CRESTOR 40 MG PO (08:59)
[2024-03-14] MEDS: METAMUCIL, KONSYL 1 PACKET PO ×2 (08:59→21:10)
[2024-03-14] MEDS: FARXIGA 10 MG PO (08:59)
[2024-03-14] MEDS: LOW STRENGTH ASPIRIN 81 MG PO (08:59)
[2024-03-14] MEDS: TOPROL XL 25 MG PO ×2 (08:59→21:11)
[2024-03-14] MEDS: VISBIOME 1 CAP PO (08:59)
[2024-03-14] MEDS: ZETIA 10 MG PO (08:59)
[2024-03-14] MEDS: PLAVIX 75 MG PO (08:59)
[2024-03-14] MEDS: PROTONIX IV 40 MG IV ×2 (08:59→21:10)
[2024-03-14] MEDS: NSS (PRESERVATIVE FREE) 10 ML IV ×2 (08:59→21:10)
[2024-03-14] MEDS: LEVAQUIN 500 MG PO (08:59)
[2024-03-14] MEDS: FLAGYL 500 MG PO ×3 (08:59→23:51)
[2024-03-14] MEDS: FLOMAX 0.4 MG PO (08:59)
[2024-03-14] MEDS: LIDOCAINE 4% PATCH 1 PATCH TOPICAL (09:00)
--- NOTE | 2024-03-14 09:00 | PTCARENOTE ---
Assumed care of patient at 0700. Pt is awake, alert, and oriented. Pt remains SR with HR 60's. BP 110/68 MAP 82. Pulse oximetry 97% on room air. Pt achieving 750 with IS, continued use encouraged. Pt tolerating PO diet. Gandara catheter remains in
place, Gandara care completed. Midsternal incision approximated and ADAM, right leg incisions approximated, ecchymotic, LOCKSTITCH SHOULDER JOINER. Pt with complaints of right leg pain, CT GIULIANO Clayton aware. Chest tube site sutures intact. Pt currently OOB in chair.
[2024-03-14] MEDS: NSS IV (09:15)
[2024-03-14] MEDS: NOVOLOG FLEXPEN-LOW RESISTANCE SC ×2 (09:54→17:25)
[2024-03-14] MEDS: NOVOLOG FLEXPEN 4 UNITS SC ×3 (09:55→17:25)
[2024-03-14 10:02] LABS: Glucose - Point of Care 111 mg/dl (70-99)
--- NOTE | 2024-03-14 13:15 | PTCARENOTE ---
Pt ambulated to bathroom with RN assistance and rolling walker, able to brush teeth at sink. Ambulated in rosen with PT using rolling walker. Pt remains SR with HR 70's. BP 105/83 MAP 91. Pulse oximetry 99% on room air. Encouraged continued use of
IS. Pt remains OOB in chair.
[2024-03-14] MEDS: NOVOLOG FLEXPEN-LOW RESISTANCE 1 UNITS SC (13:51)
[2024-03-14 13:55] LABS: Glucose - Point of Care 144 mg/dl (70-99)
--- NOTE | 2024-03-14 16:45 | PTCARENOTE ---
Pt took rest in bed during the afternoon. Now OOB in chair. Ambulated in rosen with RN and rolling walker. Requires continued encouragement to ambulate and remain OOB. Tolerated ambulation. Remains SR with HR 70's. BP 101/65 MAP 76. Pulse oximetry
98% on room air.
[2024-03-14 17:14] LABS: Glucose - Point of Care 107 mg/dl (70-99)
--- NOTE | 2024-03-14 20:00 | PTCARENOTE ---
assumed care of pt from previous RN. pt A&Ox4, resting in bed at time of assessment. pt with a flat affect, withdrawn. no c/o pain at time of assessment. SR on tele-monitor. POX 98% on RA. abd s/n, +BS. hinds catheter draining clear, yellow urine.
all surgical sites stable, CDI. PIV intact. see worklist for complete nursing assessment, interventions, VS, and I&Os.
[2024-03-14] MEDS: MELATONIN 5 MG PO (21:11)
[2024-03-14 21:14] LABS: Glucose - Point of Care 174 mg/dl (70-99)
[2024-03-14] MEDS: LANTUS 0.2 UNITS SC (21:14)
[2024-03-15] VITALS (14 sets, daily range): BP systolic 78–129; BP diastolic 44–60; PULSE 71–75; O2SAT 97; BMI 22.5
--- NOTE | 2024-03-15 | PTCARENOTE ---
assessment remains unchanged. VSS.
--- NOTE | 2024-03-15 04:30 | PTCARENOTE ---
assessment remains unchanged. VSS. AM labs collected and sent.
[2024-03-15 04:33] LABS: Hematocrit 24.7 % (37.0-47.0); Hemoglobin 8.2 g/dL (12.0-16.0); Mean Corp Hgb Conc. 33.2 g/dL (33.0-37.0); Mean Corpuscular Hgb 29.1 pg (27.0-31.0); Mean Corpuscular Volume 87.6 fL (81.0-99.0); Mean Platelet Volume 10.3 fL (7.4-10.4); Platelet Count 268 10^3/uL (130-400); Red Blood Cell Count 2.82 10^6/uL (4.20-5.40); Red Cell Dist. Width 13.7 % (11.5-14.5); White Blood Cell Count 9.4 10^3/uL (4.8-10.8)
--- NOTE | 2024-03-15 04:48 | W.PN.CT ---
Today's Communication / Plan
-
pod #[address] due to retention. TOV per urology. Continue Flomax.
s/p sigmoidoscopy 03/12 revealed congested, inflamed, ulcerated and pseudomembrane-covered mucosa in rectum and scattered throughout the sigmoid colon. Biopsied. Looks ischemic vs infectious - rare for ischemia to affect the rectum, GI following
Placed on Levaquin and Flagyl for colitis. Continue. Afebrile. No leukocytosis on this morning's CBC.
pt follows commands, no focal deficits, lethargic
Stable on room air
Hg 8.2, stable
K of 5.0, up from 4.7 yesterday, no arrhythmias.
Labs otherwise stable
dispo: SNF when medically ready
Assessment / Plan
-
Assessment:
-S/P CABG x 4 (POLO to LAD, GSV to D2, GSV to OM3, GSV to RPLB)/Takedown of POLO (narrow pedicle w/ partial skeletonization)/Endoscopic harvest/prep of RLE GSV, by Dr. Blanco, 03/05/24, pod#8
-Multivessel CAD
-Mild MR
-Calcified prox Asc. aorta
-Severe sessile atheroma of descending aorta
-LVEF 50% to 55% postop, per intraop BRENDA
-Sinus tachycardia
-HTN
-Hyperlipidemia
-T2DM (insulin dependent, A1C 8.7)
-COPD
-Current 'light' Tobacco use (e-cigarette)
-CKD3a
-S/P
-Acute intraop/postop blood loss/anemia (transfused 3 PRBC's intraop, 1 PRBC postop)
-Acute intraop/postop coagulopathy (transfused 1 FFP postop)
-Acute postop thrombocytopenia (stable)
-Acute postop atelectasis
-Acute postop hypovolemia with subsequent hypervolemia
-Acute postop urinary retention S/P straight cathed x 3- Gandara reinserted
-Acute postop fecal incontinence
-New finding of sessile mass in rectum on exam - will need outpatient colonoscopy in 4 weeks
-s/p Sigmoidoscopy 03/12/24: Congested, inflamed, ulcerated and pseudomembrane-covered mucosa circumferentially in rectum, and scattered throughout the sigmoid colon. Biopsied.
Looks ischemic vs infectious - rare for ischemia to affect the rectum
Subjective
Procedure
CABG x 4 (POLO to LAD, GSV to D2, GSV to OM3, GSV to RPLB)/Takedown of POLO (narrow pedicle w/ partial skeletonization)/Endoscopic harvest/prep of RLE GSV, by Dr. Blanco, 03/05/24
-
Date of Service: March 15, 2024
Objective Data
-
Lab Results
03/15/24 04:19
03/15/24 04:19
PT 15.1 Sec (11.4-14.6) H 03/06/24 04:57
INR 1.16 03/06/24 04:57
APTT 29.5 Sec (23.4-35.0) 03/05/24 13:39
Vital Signs
Vital Signs
Temp Pulse Resp BP Pulse Ox
98.2 F 73 14 129/53 97
03/15/24 04:00 03/15/24 04:15 03/15/24 04:00 03/15/24 04:15 03/15/24 04:00
CT Intake/Output/Weight
03/14/24 03/14/24 03/15/24
06:59 18:59 06:59
Output Total 650 / 1400 600 / 1400 800 / 1400
Balance -650 / -920 -600 / -1400 -800 / -1400
SaO2: 97
Physical Exam
-
General: Awake and Other (lethargic)
Cardiovascular: Regular rate & rhythm
Sternum: Stable
Incision: Clean, Dry and Intact
[2024-03-15 05:10] LABS: Blood Urea Nitrogen 31 mg/dl (7-17); Calcium 7.5 mg/dl (8.4-10.2); Carbon Dioxide 23 mmol/L (22-30); Chloride 105 mmol/L (98-107); Estimated Creatinine Clearance 34 ml/min; Glucose 121 mg/dl (70-99); Sodium 136 mmol/L (135-145); eGFR 44.51
--- NOTE | 2024-03-15 07:00 | PTCARENOTE ---
Bedside walking rounds. OOB in chair. Vitals stable. Room air. Neuro intact. Instructed to leave hinds catheter another day.
--- NOTE | 2024-03-15 07:36 | W.PN.CD ---
Today's Communication / Plan
-
will need SNF when GI issues are stable enough for discharge
Impression / Plan
-
BACKGROUND: Hungarian speaking 68F with type II DM (on insulin), COPD, HLD and MVCAD presents for CABG
Primary Jig Builder Helper: Dr. Mcqueen
IMPRESSION/PLAN:
CAD S/P CABG x 4 (POLO to LAD, GSV to D2, GSV to OM3, GSV to RPLB) by Dr. Blanco on 03/05/2024
-Pre-LVEF 50%, post LVEF 55% with minor unchanged inferobasal hypokinesis
-EKG sinus rhythm, PACs, left axis, & RBBB which is new
-ambulating
Anemia, stable
Diarrhea, rectal mass: GI consulted, plan for flex sig in 4 weeks post-op. GI following
HTN, Trending up slightly
Mild mitral regurgitation
HLD, on rosuvastatin 40mg
Type II DM, Hgba1c 8.7%
COPD, no acute exacerbation
Current smoker
SUBJECTIVE:
Needs to ambulate
Physical Exam
Vital Signs/Labs
Vital Signs
Temp Pulse Resp BP Pulse Ox
98.2 F 71 14 129/53 97
03/15/24 04:00 03/15/24 06:00 03/15/24 04:00 03/15/24 04:15 03/15/24 04:51
03/14/24 03/15/24 03/16/24
06:59 06:59 06:59
Actual Weight 127 lb 10.362 oz 126 lb 15.78 oz
03/15/24 04:19
PT 15.1 Sec (11.4-14.6) H 03/06/24 04:57
INR 1.16 03/06/24 04:57
APTT 29.5 Sec (23.4-35.0) 03/05/24 13:39
Magnesium 1.9 mg/dl (1.6-2.3) 03/11/24 04:14
Physical Exam
Constitutional: No acute distress and Other (will not open eyes to command)
Cardiovascular: Rhythm & rate is regular and S1S2 is normal
Respiratory: Respiratory effort normal
GI: Distention absent
Data Reviewed
-
Date of Service: March 15, 2024
[2024-03-15] MEDS: NOVOLOG FLEXPEN SC ×2 (08:00→14:35)
[2024-03-15] MEDS: NOVOLOG FLEXPEN-LOW RESISTANCE SC ×2 (08:00→14:35)
[2024-03-15 08:34] LABS: Glucose - Point of Care 147 mg/dl (70-99)
[2024-03-15] MEDS: LASIX 20 MG IV (08:37)
[2024-03-15] MEDS: METAMUCIL, KONSYL 1 PACKET PO ×2 (08:37→19:36)
[2024-03-15] MEDS: PROTONIX IV 40 MG IV (08:37)
[2024-03-15] MEDS: LOW STRENGTH ASPIRIN 81 MG PO (08:39)
[2024-03-15] MEDS: LEVAQUIN 500 MG PO (08:39)
[2024-03-15] MEDS: PLAVIX 75 MG PO (08:39)
[2024-03-15] MEDS: FLAGYL 500 MG PO ×3 (08:39→23:35)
[2024-03-15] MEDS: FLOMAX 0.4 MG PO (08:40)
[2024-03-15] MEDS: TOPROL XL 25 MG PO ×2 (08:40→19:37)
[2024-03-15] MEDS: NSS (PRESERVATIVE FREE) 10 ML IV (08:41)
[2024-03-15] MEDS: FARXIGA 10 MG PO (08:41)
[2024-03-15] MEDS: VISBIOME 1 CAP PO (08:41)
[2024-03-15] MEDS: PACERONE 400 MG PO ×2 (08:41→16:45)
[2024-03-15] MEDS: ZETIA 10 MG PO (08:41)
[2024-03-15] MEDS: CRESTOR 40 MG PO (08:41)
[2024-03-15] MEDS: LIDOCAINE 4% PATCH TOPICAL (08:42)
--- NOTE | 2024-03-15 08:46 | PN.DE.MGMTRT ---
Insulin Management
- -
03/15/2024: Diabetes Management F/U:
68 year old Romanian speaking Female admitted for elective CABG. PMH: MVCAD, Calcified prox Asc. Aorta, HTN, HLD, COPD, Current Tobacco use (e-cigarette), CKD3a, and IDDM. Now s/p CABG x 4 on 03/05/2024. A1C 8.7%, Cr 1.6, eGFR 34.70.
Chart indicates she was taking Lantus 26 units @ HS, Ozempic and Lispro 20 units BID prior to admission. Uses Omar CGM for glucose monitoring.
Pt was managed on continuos insulin infusion x48 hrs post-op and was transitioned off drip on 03/07 to SQ insulin.
Pt awake, resting up in chair, flat affect, disengaged and not interested in discussing diabetes mgt.
Glucose stable and in range, Premeal 107 to 144. Received Lantus 20 units @ HS, FBG 121(V) today
Will make no changes to current regimen; Farxiga 10 mg daily, NovoLog 4 units AC, Lantus 20 units @ HS and low corrective insulin with meals.
Will follow and make further insulin adjustments if needed
Diabetes History
- -
Type of Diabetes: 2 requiring insulin
Pre-Admission Diabetes Regimen
03/15/24
04:19
Creatinine 1.3 H
Lab Results
Hemoglobin A1c 8.7 % (4.0-5.6) H 02/25/24 12:27
Insulin Pump Settings
IP Diabetes Regimen
03/14/24 03/14/24 03/14/24
09:50 13:50 17:12
Glucose
POC Glucose 111 H 144 H 107 H
03/14/24 03/15/24 03/15/24
21:13 04:19 08:27
Glucose 121 H
POC Glucose 174 H 147 H
Meal type: Breakfast
Amount consumed: 50%
Patient Education
--- NOTE | 2024-03-15 12:00 | PTCARENOTE ---
No acute changes. Vitals stable. NSR. Room air.
[2024-03-15 14:32] LABS: Blood Urea Nitrogen 32 mg/dl (7-17); Calcium 7.7 mg/dl (8.4-10.2); Carbon Dioxide 25 mmol/L (22-30); Chloride 102 mmol/L (98-107); Estimated Creatinine Clearance 29 ml/min; Glucose 145 mg/dl (70-99); Potassium 4.6 mmol/L (3.5-5.1); Sodium 136 mmol/L (135-145); eGFR 37.49
[2024-03-15] MEDS: TYLENOL 1000 MG PO ×2 (14:42→21:31)
[2024-03-15] MEDS: NSS IV (14:43)
--- NOTE | 2024-03-15 15:41 | W.PN.GI.CBS2 ---
Addendum entered and electronically signed by Kaela More DO 03/15/24 18:38:
Patient seen and examined independently of GOLF COACH. I agree with her note with my addition below.
Patient denies pain and is having less frequent mucoid stools.
Antibiotics started on Friday and would continue for 10days total
Hgb has been stable
Avoid hypotension
Hopefully biopsies will be back soon however this should not hold up her discharge.
When I get them back I will send them to her primary GI, Dr. Escobedo in [place]. She will need to follow-up with him and likely repeat a colonoscopy in 4 to 8 weeks to ensure healing
Once daily ppi is fine.
low residue diet for 1 more week then back to normal
continue fiber powder to bulk stools
Original Note:
Today's Communication / Plan
-
hbg stable total 4 units given 03/05 no further transfusion needed hbg 8.2
slight improved today per staff still liquid but less episodes
I spoke with pathology -- specimen processed today will try to call again tomorrow for results
stool cx neg
cont metamucil
cont low residue diet
cont low residue diet
remains on PPI with recent anemia
pt remains on Levaquin and Flagyl
hold laxatives
OP follow up with Dr. Escobedo OP know GI prior to admission
pr remains on Plavix and ASA post op
Assessment / Plan
-
Pt is a 68yo with hx COPD, hypercholesteremia, NIDDM, tobacco abuse, CKD3a mild MR, and multi vessel CAD presents for elective CAGB x4 on 03/05. She was noted with hbg 11.1 pre-op 02/24 and now post-op anemia with drop to 7.8 with heme + stool. .
She has required 4 units PRBC's since admission and hbg up to 10.9. BUN at baseline. Some drop in platelets post-op. Pt pre-op on ASA 81mg and per staff may have taken some Eliquis prior to admission and pt remains on chronic Ozempic with last
dose over 1 month ago. No other NSAID use. She was also given heparin during surgery 03/05. Hx some chronic GERD/post prandial pain med taken prior to admission and constipation and with some loose stool since admission.
03/12/24 flex - Congested, inflamed, ulcerated and pseudomembrane-covered mucosa circumferentially in rectum, and scattered throughout the sigmoid colon.
Biopsied. Looks ischemic vs infectious - rare for ischemia to affect the rectum
-persistent diarrhea
-irregular mucosa on rectal exam with abnormal flex
-anemia requiring transfusion during admission
-heme + brown stool
-loose stool with hx constipation
-s/p CABG 03/05 for multi vessel CAD
-fever 101.2
-thrombocytopenia with normal platelets pre-op
-prior GERD/abdominal pain prior to admission
-hx ? polyps follows with dr. Escobedo prior to admission
-recent abnormal breast imaging due OP follow up
other med problems:
-COPD
-hypercholesterolemia
-NIDDM
-tobacco abuse
-CKD
-mild MR
PLAN:
hbg stable total 4 units given 03/05 no further transfusion needed hbg 8.2
slight improved today per staff still liquid but less episodes
I spoke with pathology -- specimen processed today will try to call again tomorrow for results
stool cx neg
cont metamucil
remains on PPI with recent anemia
pt remains on Levaquin and Flagyl
hold laxatives
OP follow up with Dr. Escobedo OP know GI prior to admission
pr remains on Plavix and ASA post op
Subjective
Subjective
Date of Service: March 15, 2024
03/15/24 brown loose stool x 1 today with slight form on low residue diet
Objective
Data Reviewed
Laboratory Data:
Laboratory Results
03/15/24 04:19
03/15/24 13:50
Laboratory Results
PT 15.1 Sec (11.4-14.6) H 03/06/24 04:57
INR 1.16 03/06/24 04:57
APTT 29.5 Sec (23.4-35.0) 03/05/24 13:39
Magnesium 1.9 mg/dl (1.6-2.3) 03/11/24 04:14
Total Bilirubin 0.4 mg/dl (0.2-1.3) 02/25/24 12:27
AST 21 U/L (14-36) 02/25/24 12:27
ALT 15 U/L (0-35) 02/25/24 12:27
Alkaline Phosphatase 77 U/L (38-126) 02/25/24 12:27
Vital Signs and I&O:
Vital Signs
Temp Pulse Resp BP Pulse Ox
98 F 76 18 113/51 96
03/15/24 11:39 03/15/24 14:00 03/15/24 11:39 03/15/24 11:59 03/15/24 11:39
I&O
03/14/24 03/15/24 03/16/24
06:59 06:59 06:59
Intake Total 480 / 480 675 / 675
Output Total 1400 / 1400 1400 / 1400 1250 / 1250
Balance -920 / -920 -1400 / -1400 -575 / -575
Physical Exam
Physical Exam
HEENT: Anicteric and Moist mucous membranes
Cardiology: Normal Sinus Rhythm
Pulmonary: Clear
GI: Soft, Non Distended and Non Tender
Extremities: No Edema
Neuro: Non Focal and Other (speaks irish and some Italian )
--- NOTE | 2024-03-15 16:00 | PTCARENOTE ---
No acute changes: patient assist of 1 oob to chair and encouraged oob for all meals.
[2024-03-15] MEDS: NOVOLOG FLEXPEN 4 UNITS SC (16:48)
[2024-03-15] MEDS: NOVOLOG FLEXPEN-LOW RESISTANCE 2 UNITS SC (16:48)
[2024-03-15 16:54] LABS: Glucose - Point of Care 212 mg/dl (70-99)
--- NOTE | 2024-03-15 17:19 | CM ---
spoke to pt and husb in room. we discussed her going to rehab, she and her husb are agreeable. [facility] bed for wed. cm to get authorization in am.
[2024-03-15] MEDS: CEFTIN 500 MG PO (19:36)
--- NOTE | 2024-03-15 20:00 | PTCARENOTE ---
Received pt from [facility]. pt resting comfortably in chair. family at bedside. pt is AAOX4 but withdrawn and requires ongoing encouragement to participate is ADLs. NSR on monitor, and VSS. heart sounds audible, radial and DP pulse palpable, trace
pedal edema. lungs diminished at b/l bases, spo2 98% on RA. + BS x4 quadrants, abdomen soft non tender, pt incontinent of stool. pt voiding clear yellow urine via hinds catheter for urinary retention, pt being followed by urology. surgical sites
maintained. d/c plan is placement at rehab. call alexander within reach. will continue to monitor.
[2024-03-15] MEDS: PACERONE 200 MG PO (21:31)
[2024-03-15] MEDS: MELATONIN 5 MG PO (21:31)
[2024-03-15] MEDS: LANTUS 0.2 UNITS SC (21:32)
[2024-03-15 21:35] LABS: Glucose - Point of Care 237 mg/dl (70-99)
[2024-03-16] VITALS (12 sets, daily range): BP systolic 93–142; BP diastolic 41–66; PULSE 71; O2SAT 98; BMI 22.2
--- NOTE | 2024-03-16 | PTCARENOTE ---
Pt assessment unchanged. NSR on monitor. VSS. pt resting comfortably in bed. call alexander within reach. will continue to monitor.
--- NOTE | 2024-03-16 00:53 | W.PN.CT ---
Today's Communication / Plan
-
Plan:
-No major issues overnight. Hemodynamically and neurologically intact
-Currently in NSR @ 78 bpmp. On Toprol XL 25 mg BID and Amiodarone 200 mg TID (reduced from 400 mg TID given prolonged QT)
-Has hinds catheter in place for postop urinary retention, failed voiding trials on 03/13. On Flomax since 03/09. Will give another trial when ambulating well, or else will likely go home with hinds and f/u with urology as outpt for
removal. Urology following.
-Postop fecal incontinence s/p sigmoidoscopy 03/12 revealed congested, inflamed, ulcerated and pseudomembrane-covered mucosa in rectum and scattered throughout the sigmoid colon. Biopsied. Looks ischemic vs infectious - rare for ischemia to affect
the rectum. Started on Flagyl and Ceftin (Levaquin d/c'd 03/15 d/t prolonged QT). Rectal biopsy is pending GI and Colorectal following
-Cont. current meds (ASA, Plavix, Amiodarone, Toprol XL, Crestor, Zetia, Protonix, Ceftin, Flagyl, Flomax, Farxiga, Novolog, Lantus)
-If repeat Colonoscopy is warranted in 4-8 weeks, will hold Plavix for 1wk prior and will not resume after per Dr. Blanco
-Encourage use of IS
-OOB into chair/Ambulate
-PT/OT recommending SNF placement (pt and want pt to be discharged home)
Assessment / Plan
-
Assessment:
-S/P CABG x 4 (POLO to LAD, GSV to D2, GSV to OM3, GSV to RPLB)/Takedown of POLO (narrow pedicle w/ partial skeletonization)/Endoscopic harvest/prep of RLE GSV, by Dr. Blanco, 03/05/24, pod#11
-Multivessel CAD
-Mild MR
-Calcified prox Asc. aorta
-Severe sessile atheroma of descending aorta
-LVEF 50% to 55% postop, per intraop BRENDA
-Sinus tachycardia
-HTN
-Hyperlipidemia
-T2DM (insulin dependent, A1C 8.7)
-COPD
-Current 'light' Tobacco use (e-cigarette)
-CKD3a
-S/P
-Acute intraop/postop blood loss/anemia (transfused 3 PRBC's intraop, 1 PRBC postop)
-Acute intraop/postop coagulopathy (transfused 1 FFP postop)
-Acute postop thrombocytopenia (stable)
-Acute postop atelectasis
-Acute postop hypovolemia with subsequent hypervolemia
-Acute postop urinary retention S/P straight cathed x 3- Hinds reinserted
-Acute postop fecal incontinence
-New finding of sessile mass in rectum on exam - will need outpatient colonoscopy in 4 weeks
-s/p Sigmoidoscopy 03/12/24: Congested, inflamed, ulcerated and pseudomembrane-covered mucosa circumferentially in rectum, and scattered throughout the sigmoid colon. Biopsied.
Looks ischemic vs infectious - rare for ischemia to affect the rectum
Discussed patient care with: Cardiology, Nursing, Respiratory Therapy, Pharmacy and Care Team
Subjective
Procedure
CABG x 4 (POLO to LAD, GSV to D2, GSV to OM3, GSV to RPLB)/Takedown of POLO (narrow pedicle w/ partial skeletonization)/Endoscopic harvest/prep of RLE GSV, by Dr. Blanco, 03/05/24
-
Date of Service: March 16, 2024
Pt c/o mild incisional pain and poor appetite, otherwise feels well. Ambulating with PT using rolling walker
Objective Data
-
PT 15.1 Sec (11.4-14.6) H 03/06/24 04:57
INR 1.16 03/06/24 04:57
APTT 29.5 Sec (23.4-35.0) 03/05/24 13:39
Vital Signs
Vital Signs
Temp Pulse Resp BP Pulse Ox
97.9 F 69 16 112/50 98
03/15/24 19:33 03/15/24 19:00 03/15/24 19:33 03/15/24 19:37 03/15/24 20:00
CT Intake/Output/Weight
03/15/24 03/15/24 03/16/24
06:59 18:59 06:59
Intake Total 975 / 975
Output Total 800 / 1400 1500 / 1700 200 / 1700
Balance -800 / -1400 -525 / -725 -200 / -725
SaO2: 98 (RA)
Physical Exam
-
General: Awake, Oriented and AOx3
Cardiovascular: Regular rate & rhythm, No Murmurs and No Gallop
Respiratory: Decreased Breath Sounds (at bases, otherwise clear)
Sternum: Stable
Incision: Clean, Dry, Intact and Dressing Intact
Extremities: Other (+trace edema)
Data Reviewed
-
Lab Results: Results Reviewed
Medications: Active Meds Reviewed
Chest X-Ray: Report Reviewed and Image Reviewed
ECG: Report Reviewed and Image Reviewed
[2024-03-16 03:42] LABS: Hematocrit 24.7 % (37.0-47.0); Hemoglobin 8.2 g/dL (12.0-16.0); Mean Corp Hgb Conc. 33.2 g/dL (33.0-37.0); Mean Corpuscular Hgb 29.2 pg (27.0-31.0); Mean Corpuscular Volume 87.9 fL (81.0-99.0); Mean Platelet Volume 9.9 fL (7.4-10.4); Platelet Count 305 10^3/uL (130-400); Red Blood Cell Count 2.81 10^6/uL (4.20-5.40); Red Cell Dist. Width 13.7 % (11.5-14.5); White Blood Cell Count 7.9 10^3/uL (4.8-10.8)
--- NOTE | 2024-03-16 04:00 | PTCARENOTE ---
Pt assessment unchanged. NSR on monitor. VSS. pt resting comfortably in bed. labs drawn and sent. call alexander within reach. will continue to monitor.
[2024-03-16 04:02] LABS: Blood Urea Nitrogen 35 mg/dl (7-17); Calcium 7.6 mg/dl (8.4-10.2); Carbon Dioxide 24 mmol/L (22-30); Chloride 105 mmol/L (98-107); Estimated Creatinine Clearance 29 ml/min; Glucose 163 mg/dl (70-99); Magnesium 1.9 mg/dl (1.6-2.3); Potassium 4.6 mmol/L (3.5-5.1); Sodium 138 mmol/L (135-145); eGFR 37.49
--- NOTE | 2024-03-16 07:30 | PTCARENOTE ---
Assumed care of patient from material handler 2nd shift RN. CORTNEYO x 3 . More alert this am, making requests for care items as well as actively participating in her ADL's this am. SR with prolonged QT on monitor. Room air 96%. Denies cough or sob. IS to 750.
Gandara intact with clear arlen urine. Abdomen soft and non tender, appetite good. Some stool leakage noted , coninues to be old blood tinged mucoid consistency. Surgical sites, intact, well approximated. Pulses palpable. trace pedal edema
appreciated.
[2024-03-16 07:53] LABS: Glucose - Point of Care 167 mg/dl (70-99)
[2024-03-16] MEDS: NOVOLOG FLEXPEN 4 UNITS SC ×2 (08:21→12:21)
[2024-03-16] MEDS: NOVOLOG FLEXPEN-LOW RESISTANCE 1 UNITS SC ×2 (08:21→12:21)
[2024-03-16] MEDS: METAMUCIL, KONSYL 1 PACKET PO (08:22)
[2024-03-16] MEDS: TOPROL XL 25 MG PO ×2 (08:31→20:03)
[2024-03-16] MEDS: CRESTOR 40 MG PO (08:31)
[2024-03-16] MEDS: ZETIA 10 MG PO (08:31)
[2024-03-16] MEDS: FARXIGA 10 MG PO (08:31)
[2024-03-16] MEDS: FLOMAX 0.4 MG PO (08:31)
[2024-03-16] MEDS: VISBIOME 1 CAP PO (08:31)
[2024-03-16] MEDS: CEFTIN 500 MG PO ×2 (08:31→20:10)
[2024-03-16] MEDS: PROTONIX 40 MG PO (08:31)
[2024-03-16] MEDS: PLAVIX 75 MG PO (08:31)
[2024-03-16] MEDS: LOW STRENGTH ASPIRIN 81 MG PO (08:31)
[2024-03-16] MEDS: FLAGYL 500 MG PO ×3 (08:32→23:20)
[2024-03-16] MEDS: PACERONE 200 MG PO ×3 (08:32→21:42)
[2024-03-16] MEDS: NSS IV (08:32)
[2024-03-16] MEDS: LIDOCAINE 4% PATCH TOPICAL (08:32)
--- NOTE | 2024-03-16 09:23 | PN.DE.MGMTRT ---
Insulin Management
- -
03/16/2024: Diabetes Management Follow up:
68 year old Urdu speaking Female admitted for elective CABG. PMH: MVCAD, Calcified prox Asc. Aorta, HTN, HLD, COPD, Current Tobacco use (e-cigarette), CKD3a, and IDDM. Now s/p CABG x 4 on 03/05/2024. A1C 8.7%, Cr 1.6, eGFR 34.70.
Chart indicates she was taking Lantus 26 units @ HS, Ozempic and Lispro 20 units BID prior to admission. Uses Omar CGM for glucose monitoring.
Pt was managed on continuos insulin infusion x48 hrs post-op and was transitioned off drip on 03/07 to SQ insulin.
05/16Pt awake, resting up in chair, flat affect, disengaged and not interested in discussing diabetes management; at bedside. Used Urdu sharepoint application architect # [id number] through iPad. I was able to find out is bringing fruits and other foods
for patient contributing to the 237 @ HS
Glucose stable, Premeal 145 to 237. Received Lantus 20 units @ HS, FBG 167. Increase lantus to 22 units and AC novolog to 6 units with Farxiga 10 mg daily.
Patient had clear on current doses and had no further questions.
Will follow and make further insulin adjustments if needed
Diabetes History
- -
Type of Diabetes: 2 requiring insulin
Pre-Admission Diabetes Regimen
03/15/24 03/16/24
13:50 03:22
Creatinine 1.5 H 1.5 H
Lab Results
Hemoglobin A1c 8.7 % (4.0-5.6) H 02/25/24 12:27
Insulin Pump Settings
IP Diabetes Regimen
03/15/24 03/15/24 03/15/24
13:50 16:47 21:33
Glucose 145 H
POC Glucose 212 H 237 H
03/16/24 03/16/24
03:22 07:52
Glucose 163 H
POC Glucose 167 H
Patient Education
[2024-03-16 12:20] LABS: Glucose - Point of Care 159 mg/dl (70-99)
--- NOTE | 2024-03-16 12:55 | PTCARENOTE ---
Tolerated sitting in chair for 6 hours! Appetite poor, bringing in food. VSS. Assessment unchanged from prior
--- NOTE | 2024-03-16 13:33 | W.PN.GI.CBS2 ---
Today's Communication / Plan
-
Outpatient GI follow up
continue antibiotics for total of 10 days
follow up path results
Assessment / Plan
-
Pt is a 68yo with hx COPD, hypercholesteremia, NIDDM, tobacco abuse, CKD3a mild MR, and multi vessel CAD presents for elective CAGB x4 on 03/05. She was noted with hbg 11.1 pre-op 02/24 and now post-op anemia with drop to 7.8 with heme + stool. .
She has required 4 units PRBC's since admission and hbg up to 10.9. BUN at baseline. Some drop in platelets post-op. Pt pre-op on ASA 81mg and per staff may have taken some Eliquis prior to admission and pt remains on chronic Ozempic with last
dose over 1 month ago. No other NSAID use. She was also given heparin during surgery 03/05. Hx some chronic GERD/post prandial pain med taken prior to admission and constipation and with some loose stool since admission.
03/12/24 flex - Congested, inflamed, ulcerated and pseudomembrane-covered mucosa circumferentially in rectum, and scattered throughout the sigmoid colon.
Biopsied. Looks ischemic vs infectious - rare for ischemia to affect the rectum
-persistent diarrhea
-irregular mucosa on rectal exam with abnormal flex
-anemia requiring transfusion during admission
-heme + brown stool
-loose stool with hx constipation
-s/p CABG 03/05 for multi vessel CAD
-fever 101.2
-thrombocytopenia with normal platelets pre-op
-prior GERD/abdominal pain prior to admission
-hx ? polyps follows with dr. Escobedo prior to admission
-recent abnormal breast imaging due OP follow up
other med problems:
-COPD
-hypercholesterolemia
-NIDDM
-tobacco abuse
-CKD
-mild MR
PLAN:
path results still pending.
Continue antibiotics for total of 10 days
low residual diet for 1 more week on discharge
Patient needs to follow-up with Dr. Escobedo as outpatient - outpatient repeat colonoscopy . Path results will be forwarded to Dr. Escobedo once available
Will sign off. Please call us back if any questions
Total Time Spent with Patient (in minutes): 35
Subjective
Subjective
Date of Service: March 16, 2024
No abdominal or rectal pain. Tolerating diet
Objective
Data Reviewed
Laboratory Data:
Laboratory Results
03/16/24 03:22
03/16/24 03:22
Laboratory Results
PT 15.1 Sec (11.4-14.6) H 03/06/24 04:57
INR 1.16 03/06/24 04:57
APTT 29.5 Sec (23.4-35.0) 03/05/24 13:39
Magnesium 1.9 mg/dl (1.6-2.3) 03/16/24 03:22
Total Bilirubin 0.4 mg/dl (0.2-1.3) 02/25/24 12:27
AST 21 U/L (14-36) 02/25/24 12:27
ALT 15 U/L (0-35) 02/25/24 12:27
Alkaline Phosphatase 77 U/L (38-126) 02/25/24 12:27
Vital Signs and I&O:
Vital Signs
Temp Pulse Resp BP Pulse Ox
98.0 F 72 18 101/47 96
03/16/24 12:30 03/16/24 12:30 03/16/24 12:30 03/16/24 12:18 03/16/24 12:30
I&O
03/15/24 03/16/24 03/17/24
06:59 06:59 06:59
Intake Total 975 / 975 600 / 600
Output Total 1400 / 1400 2150 / 2150 300 / 300
Balance -1400 / -1400 -1175 / -1175 300 / 300
Physical Exam
Physical Exam
GI: Soft, Non Distended and Non Tender
[2024-03-16 16:19] LABS: Glucose - Point of Care 149 mg/dl (70-99)
[2024-03-16] MEDS: NOVOLOG FLEXPEN-LOW RESISTANCE SC (16:19)
--- NOTE | 2024-03-16 16:36 | PTCARENOTE ---
Resting in bed after working with occupational therapist. Denies pain Denies pain. Increased ambulation encouraged. VSS. Assessmen totherwise unchanged from prior.
[2024-03-16 17:25] LABS: Glucose - Point of Care 146 mg/dl (70-99)
[2024-03-16] MEDS: NOVOLOG FLEXPEN 6 UNITS SC (17:38)
[2024-03-16] MEDS: METAMUCIL, KONSYL PO (20:03)
--- NOTE | 2024-03-16 20:20 | PTCARENOTE ---
Received pt from [facility]. pt resting comfortably in bed. pt is AAOX4. pt's affect has improved from previous shift and is more engaged. NSR on monitor, and VSS. heart sounds audible, radial and DP pulse palpable, trace pedal edema. lungs diminished
at b/l bases, spo2 97% on RA. + BS x4 quadrants, abdomen soft non tender, pt incontinent of stool. pt voiding clear yellow urine via hinds catheter for urinary retention, pt being followed by urology. surgical sites maintained. Pt to be d/c to home
tomorrow, 03/17. call alexander within reach. will continue to monitor.
[2024-03-16] MEDS: LANTUS 0.22 UNITS SC (21:41)
[2024-03-16 21:42] LABS: Glucose - Point of Care 162 mg/dl (70-99)
[2024-03-16] MEDS: MELATONIN 5 MG PO (21:42)
--- NOTE | 2024-03-16 23:54 | PTCARENOTE ---
Assumed care of pt from previous RN ~7004. Pt AAOx3. SR on the tele monitor. HR 70s. BP 142/55. MAP 81. B/L DP pulses weak. B/L radial pulses palpable. Trace pedal edema present. Pt on RA. POX 96%. Lung sounds diminished in the base. Deep breathing
encouraged. Abdomen soft/nontender. +BS. Gandara catheter C/D/I and draining yellow urine. Pt assisted OOB to have BM in the bathroom. Pt then repositioned back in bed. All surgical sites stable. Right AC PIV x1 C/D/I. No c/o pain at this time. Call
alexander within reach.
--- NOTE | 2024-03-17 03:14 | W.PN.CT ---
Today's Communication / Plan
-
-pod#12
-no significant issues overnight. Hemodynamically and neurologically intact
-labs are stable
-on Flagyl and Ceftin 10 day course (Levaquin d/c'd 03/15 d/t prolonged QT) for congested, inflamed, ulcerated rectum. Pathology pending. Will need to follow-up with her GI, Gregg Thorpe
-If repeat Colonoscopy is warranted in 4-8 weeks, will hold Plavix for 1wk prior and will not resume after per Dr. Blanco
-Gandara for postop urinary retention. Follow-up outpatient with Urology for voiding trial.
-Cont. current meds (ASA, Plavix, Amiodarone, Toprol XL, Crestor, Zetia, Protonix, Ceftin, Flagyl, Flomax, Farxiga, Novolog, Lantus)
-Encourage use of IS
-OOB into chair/Ambulate
-PT/OT recommending SNF placement (pt and want pt to be discharged home)
Assessment / Plan
-
Assessment:
-S/P CABG x 4 (POLO to LAD, GSV to D2, GSV to OM3, GSV to RPLB)/Takedown of POLO (narrow pedicle w/ partial skeletonization)/Endoscopic harvest/prep of RLE GSV, by Dr. Blanco, 03/05/24, pod#12
-Multivessel CAD
-Mild MR
-Calcified prox Asc. aorta
-Severe sessile atheroma of descending aorta
-LVEF 50% to 55% postop, per intraop BRENDA
-Sinus tachycardia
-HTN
-Hyperlipidemia
-T2DM (insulin dependent, A1C 8.7)
-COPD
-Current 'light' Tobacco use (e-cigarette)
-CKD3a
-S/P
-Acute intraop/postop blood loss/anemia (transfused 3 PRBC's intraop, 1 PRBC postop)
-Acute intraop/postop coagulopathy (transfused 1 FFP postop)
-Acute postop thrombocytopenia (stable)
-Acute postop atelectasis
-Acute postop hypovolemia with subsequent hypervolemia
-Acute postop urinary retention S/P straight cathed x 3- Gandara reinserted
-Acute postop fecal incontinence
-New finding of sessile mass in rectum on exam - will need outpatient colonoscopy in 4 weeks
-s/p Sigmoidoscopy 03/12/24: Congested, inflamed, ulcerated and pseudomembrane-covered mucosa circumferentially in rectum, and scattered throughout the sigmoid colon. Biopsied.
Looks ischemic vs infectious - rare for ischemia to affect the rectum- started on 10 day course of antibiotics
Discussed patient care with: Nursing and Care Team
Subjective
Procedure
CABG x 4 (POLO to LAD, GSV to D2, GSV to OM3, GSV to RPLB)/Takedown of POLO (narrow pedicle w/ partial skeletonization)/Endoscopic harvest/prep of RLE GSV, by Dr. Blanco, 03/05/24
-
Date of Service: March 17, 2024
Objective Data
-
PT 15.1 Sec (11.4-14.6) H 03/06/24 04:57
INR 1.16 03/06/24 04:57
APTT 29.5 Sec (23.4-35.0) 03/05/24 13:39
Vital Signs
Vital Signs
Temp Pulse Resp BP Pulse Ox
98 F 70 16 142/55 97
03/16/24 23:54 03/16/24 23:54 03/16/24 23:54 03/16/24 23:54 03/16/24 23:59
CT Intake/Output/Weight
03/16/24 03/16/24 03/17/24
06:59 18:59 06:59
Intake Total 720 / 720
Output Total 650 / 2150 650 / 950 300 / 950
Balance -650 / -1175 70 / -230 -300 / -230
SaO2: 97
Physical Exam
-
General: Awake, Oriented and AOx3
Cardiovascular: Regular rate & rhythm, No Murmurs and No Gallop
Respiratory: Decreased Breath Sounds (at bases, otherwise clear)
Sternum: Stable
Incision: Clean, Dry, Intact and Dressing Intact
Extremities: Other (+trace edema)
Data Reviewed
-
Lab Results: Results Reviewed
Medications: Active Meds Reviewed
Chest X-Ray: Report Reviewed and Image Reviewed
ECG: Report Reviewed and Image Reviewed
[2024-03-17 04:25] VITALS: BP 121/54
--- NOTE | 2024-03-17 04:36 | PTCARENOTE ---
No acute change in assessment. VSS. SR on the tele monitor. Gandara catheter intact and draining yellow urine. Labs drawn and sent. Denies pain at this time.
[2024-03-17 05:08] LABS: Hematocrit 26.9 % (37.0-47.0); Hemoglobin 8.9 g/dL (12.0-16.0); Mean Corp Hgb Conc. 33.1 g/dL (33.0-37.0); Mean Corpuscular Hgb 29.3 pg (27.0-31.0); Mean Corpuscular Volume 88.5 fL (81.0-99.0); Mean Platelet Volume 9.8 fL (7.4-10.4); Platelet Count 375 10^3/uL (130-400); Red Blood Cell Count 3.04 10^6/uL (4.20-5.40); Red Cell Dist. Width 13.6 % (11.5-14.5); White Blood Cell Count 8.7 10^3/uL (4.8-10.8)
[2024-03-17 05:16] LABS: Blood Urea Nitrogen 32 mg/dl (7-17); Carbon Dioxide 23 mmol/L (22-30); Chloride 107 mmol/L (98-107); Estimated Creatinine Clearance 31 ml/min; Glucose 107 mg/dl (70-99); Potassium 4.6 mmol/L (3.5-5.1); Sodium 142 mmol/L (135-145); eGFR 40.73
[2024-03-17 06:36] VITALS: BMI 21.9
--- NOTE | 2024-03-17 07:30 | PTCARENOTE ---
Assumed care of patient from director mission RN. AAO x 3 dozing intermittently in the chair. Denies complaint this am. Eager for possible discharge today. Requesting shower later this am. SR on monitor. Room air 98%. Abdomen soft and non tender.
Bowel sounds present. Gandara maintained per urology order. Trace pedal edema appreciated. Pulses palpable. Plan for day discussed.
[2024-03-17 07:55] VITALS: BP 129/53
[2024-03-17 07:58] LABS: Glucose - Point of Care 94 mg/dl (70-99)
[2024-03-17] MEDS: NOVOLOG FLEXPEN 6 UNITS SC (08:40)
[2024-03-17] MEDS: NOVOLOG FLEXPEN-LOW RESISTANCE SC (08:40)
[2024-03-17] MEDS: CRESTOR 40 MG PO (08:41)
[2024-03-17] MEDS: PROTONIX 40 MG PO (08:41)
[2024-03-17] MEDS: LIDOCAINE 4% PATCH TOPICAL (08:41)
[2024-03-17] MEDS: PLAVIX 75 MG PO (08:41)
[2024-03-17] MEDS: ZETIA 10 MG PO (08:41)
[2024-03-17] MEDS: FLOMAX 0.4 MG PO (08:41)
[2024-03-17] MEDS: FARXIGA 10 MG PO (08:41)
[2024-03-17] MEDS: FLAGYL 500 MG PO (08:41)
[2024-03-17] MEDS: METAMUCIL, KONSYL 1 PACKET PO (08:41)
[2024-03-17] MEDS: CEFTIN 500 MG PO (08:41)
[2024-03-17] MEDS: VISBIOME 1 CAP PO (08:41)
[2024-03-17] MEDS: PACERONE 200 MG PO (08:41)
[2024-03-17] MEDS: LOW STRENGTH ASPIRIN 81 MG PO (08:41)
[2024-03-17] MEDS: TOPROL XL 25 MG PO (08:42)
--- NOTE | 2024-03-17 08:49 | PN.DE.MGMTRT ---
Insulin Management
- -
03/17/2024: Diabetes Management Follow up:
68 year old Pashto speaking Female admitted for elective CABG. PMH: MVCAD, Calcified prox Asc. Aorta, HTN, HLD, COPD, Current Tobacco use (e-cigarette), CKD3a, and IDDM. Now s/p CABG x 4 on 03/05/2024. A1C 8.7%, Cr 1.6, eGFR 34.70.
Chart indicates she was taking Lantus 26 units @ HS, Ozempic and Lispro 20 units BID prior to admission. Uses Omar CGM for glucose monitoring.
Pt was managed on continuos insulin infusion x48 hrs post-op and was transitioned off drip on 03/07 to SQ insulin.
03/16 Pt awake, resting up in chair, flat affect, disengaged and not interested in discussing diabetes management; at bedside. Used Pashto special projects coordinator # [phone] through iPad. I was able to find out is bringing fruits and other foods
for patient contributing to the 237 @ HS
Glucose stable, Premeal 145 to 237. Received Lantus 20 units @ HS, FBG 167. Increase lantus to 22 units and AC novolog to 6 units with Farxiga 10 mg daily.
Patient and clear on current doses and had no further questions.
03/17 Patient is sleeping, annoyed to be awakened does not engage in conversation, keeps eyes closed. Pashto special projects coordinator #[phone] utilized to review insulin regimen for home and resumption of Ozempic.
Glucose improved, 162 @ hs and 94 fasting this AM. Will make no change to regimen, lantus 22 units @ hs with novolog 6 units AC and low corrective.
Will follow and make further insulin adjustments if needed
Diabetes History
- -
Type of Diabetes: 2 requiring insulin
Pre-Admission Diabetes Regimen
03/17/24
04:32
Creatinine 1.4 H
Lab Results
Hemoglobin A1c 8.7 % (4.0-5.6) H 02/25/24 12:27
Insulin Pump Settings
IP Diabetes Regimen
03/16/24 03/16/24 03/16/24
12:18 16:18 17:20
Glucose
POC Glucose 159 H 149 H 146 H
03/16/24 03/17/24 03/17/24
21:41 04:32 07:53
Glucose 107 H
POC Glucose 162 H 94
Meal type: Breakfast
Amount consumed: 100%
Patient Education
--- NOTE | 2024-03-17 09:00 | W.DCSUMMARY ---
Discharge Summary
Discharge Data
Date of Admission: 03/05/24
Date of Discharge: 03/17/24
-
Pending Results: Yes (Flex sigmoidoscopy biopsy)
Hospital Course
Outpatient head of talent management: Justin Mcqueen
Inpatient consultants: [facility] cardiology, gastroenterology, psychiatry, diabetes management, colorectal, and urology
Procedures:
1. CABG x 4
Primary Diagnosis:
1. Triple-vessel coronary disease
Secondary Diagnoses:
1. COPD
2. Type 2 diabetes requiring insulin
3. Hypertension
4. Current tobacco use (e-cigarettes)
5. Acute surgical blood loss anemia
6. History of tubular adenoma
7. Preoperative Enterococcus UTI�treated
8. Postoperative sessile rectal mass
9. Acute intraop/postop coagulopathy (transfused 1 FFP postop)
10. Acute postop urinary retention
HPI: 68-year-old female (primary language Telugu) was electively admitted on 03/05/2024 for CABG due to triple vessel coronary disease.
Hospital course: Patient underwent coronary bypass grafting (POLO to LAD, GSV to D2, GSV to OM3, GSV to RPLB) with Dr. Jarad Blanco. Patient required 3 units of packed red blood cells intraoperatively. Postprocedure BRENDA reported an ejection
fraction of 55% and patient returned to CVICU on Precedex, insulin, and Levophed. The patient was extubated at 09 30 on postoperative day #1 and Levophed was weaned off. Midodrine was started for mild hypotension. Gastroenterology was consulted
and following for heme positive stools, diarrhea. Colorectal team was consulted for a palpated rectal mass and patient underwent flex sigmoid on 03/12/2024. The lesion was biopsied and pathology report is pending. According to gastroenterology,
the pathology report will be forwarded to Dr. Escobedo (outpatient GI) the patient was given a 10-day course of Ceftin and Flagyl, which will be completed on 03/23/2024. Psychiatry was consulted for lethargy and assessment of depression. No
intervention was recommended as mood team and consistent with normal frustration of postoperative recovery process. Diabetes management team was consulted for guidance with insulin management. Insulin regime was changed to Lantus 22 units at
bedtime and NovoLog 6 units 3 times daily AC. Farxiga was initiated and Ozempic continued. Other outpatient insulins were discontinued. Patient developed urinary retention and required Gandara catheter reinsertion. Urology was consulted. Gandara
was removed and again urinary retention developed. Gandara was replaced. Flomax was initiated and patient will go home with bladder catheter and leg bag. Patient will follow-up with urology as outpatient for trial of void. Digoxin was discontinued
per cardiology and home Toprol dose increased to 50 mg daily for discharge due to hypertension and elevated heart rate. Patient progressed and ambulated with cardiac rehab team who recommended SNF placement on discharge. Patient adamant to
discharge home. Patient able to ambulate more than 250 feet with cardiac rehab and was assessed by PT/OT. Patient discharged with walker and will be seen by our transitional nurse and home PT/OT.
Home medication changes:
Lantus dose changed to 22 units at bedtime
NovoLog changed to 6 units 3 times daily
Farxiga initiated
Digoxin discontinued
Toprol XL increased to 50 mg daily
Discharge Plan
-
Patient Disposition: Home (Routine Discharge)
Discharge Diagnosis/Procedures: CAD/CABG
Condition: Fair
Diet: Low Cholesterol, Low Sodium and Diabetic, Carb Controlled
Activity: No strenuous activity
Driving Restrictions: Not until seen by your Dr
Bathing Restrictions: OK to Shower
Other Services: Cardiac Rehab
Specialty Instructions: Weigh Daily- Call MD for wt gain/loss 3 lbs overnight/5 lbs in 1 week
Activity Restrictions/Additional Instructions:
Please call [facility] when medically ready at [phone]
Referrals:
CT Transitional Care Nurse [Outside] (The Cardiothoracic Transitional Care Nurse will call you to set up a visit in 1-2 days.)
Timi Mcintosh MD [Family Provider] -
Yohannes Escobedo MD [Non-Admitting Privileges] - (follow up for colonoscopy in 4 weeks>need to stop Plavix 7 days prior to procedure and will not need to rerume. Flex sigmoid biopsy results from 03/12-pending)
Justin Mcqueen MD [Active] - 04/15/24 8:00 am
Des Luevano MD [Active] - (need to make appointment within 2 weeks for TOV (DC'd w/catheter))
Jarad Blanco MD [Active] - 04/06/24 3:00 pm
Additional Discharge Medication Instructions: Please contact the office of Dr. Escobedo to arrange/schedule colonoscopy.
Stop Plavix 7 days prior to your procedure with Dr. Chavez and do not restart.
Stop Lispro>changed to Novolog
Stop Digoxin
Prescriptions:
New
clopidogrel 75 mg Tablet
75 mg PO DAILY Qty: 30 1RF
acetaminophen [Tylenol Extra Strength] 500 mg Tablet
1,000 mg PO Q6HPRN PRN (Reason: mild pain,headache,temp >101F ) Qty: 30 0RF
tamsulosin 0.4 mg Capsule
0.4 mg PO DAILY Qty: 30 0RF
pantoprazole 40 mg Tablet,Delayed Release (Dr/Ec)
40 mg PO DAILY 30 Days Qty: 30 1RF
dapagliflozin propanediol 10 mg Tablet
10 mg PO DAILY Qty: 30 1RF
cefuroxime axetil 500 mg Tablet
500 mg PO BID Qty: 12 0RF
Rx Instructions:
stop after last dose on 03/23
metronidazole 500 mg Tablet
500 mg PO Q8 Qty: 24 0RF
Rx Instructions:
stop after last scheduled dose on 03/23
amiodarone 200 mg tablet
200 mg PO DAILY Qty: 30 1RF
insulin glargine [Lantus Solostar U-100 Insulin] 100 unit/mL (3 mL) insulin pen
22 unit SC QPM Qty: 15 3RF
metoprolol succinate [Toprol XL] 50 mg tablet extended release 24 hr
50 mg PO DAILY Qty: 30 1RF
insulin aspart U-100 [Novolog FlexPen U-100 Insulin] 100 unit/mL (3 mL) insulin pen
6 unit SC TID Qty: 15 3RF
Continued
aspirin 81 mg Tablet
81 mg PO DAILY
ezetimibe 10 mg Tablet
10 mg PO DAILY
omega-3 fatty acids Capsule
1,000 mg PO BID
rosuvastatin 40 mg Tablet
40 mg PO DAILY
Ozempic 2 mg/dose (8 mg/3 mL) Pen Injector
2 mg SC QWEEK
fenofibrate 50 mg Capsule
200 mg PO DAILY
Discontinued
digoxin 125 mcg (0.125 mg) Tablet
125 mcg PO DAILY
insulin glargine [Lantus Solostar U-100 Insulin] 100 unit/mL (3 mL) Insulin Pen
26 unit SC QPM
insulin lispro [Humalog Felix KwikPen U-100] 100 unit/mL Insulin Pen, Half-Unit
20 unit SC BID
Patient Comments:
only needs it occasionally at dinnertime
metoprolol succinate 25 mg Tablet Extended Release 24 Hr
25 mg PO DAILY
Discharge Orders:
Discharge Patient (As Directed); Ordered 03/17/24
Ordered By: Ashlee Yoo
Care Plan Goals
Care Plan Goals:
Problem: Readiness for enhanced knowledge related to diagnosis and treatment plan
Goal: Understand your diagnosis and treatment plan needs, including medications if applicable.
Instructions: Know your diagnosis, underlying causes and treatment plan options, including medications if applicable. Consult with your health care team to learn about your diagnosis and treatment plan, including medications if applicable.
Discharge Date and Time
Print Language: Telugu
--- NOTE | 2024-03-17 10:00 | PTCARENOTE ---
Assist x 1 into shower using shower chair by this RN. Pt assisted with washing and hair being shampooed. Chest tube sutures removed by CT TRACK AND FIELD COACH. Ambulated x 2 this am. Awaiting DC order
[2024-03-17] MEDS: PREVNAR 20 0.5 ML IM (11:20)
[2024-03-17] MEDS: FLUAD (65 yr+) 2024-2025 FORMULA 0.5 ML IM (11:22)
--- NOTE | 2024-03-17 11:24 | CM ---
CM following for DC planning needs.
Met w/ patient and spouse at bedside. DC plan now is for home w/ CT Transitional Care RN.
Pt. feels well and is prepared for DC home.
I cancelled SNF bed at [place].
Plan: HOME w/ CT Transitional Care RN.
Will remain avail.
[2024-03-17 12:34] VITALS: BP 122/76
--- NOTE | 2024-03-17 14:23 | PTCARENOTE ---
Discharge instructions reviewed with patient and using the language line. Pt and spouse states understanding. Wheeled, to car by RN
== END 2024-03-17 11:30 | disposition home or self-care (01) | DRG 235 ==
LOC: CVICU 04:54
PROVIDERS: Anesthesiology; Clinical Nurse Specialist Acute Care; Physician Assistant; Physician Assistant Medical; ADMITTING PHYSICIAN Thoracic Surgery (Cardiothoracic Vascular Surgery); CONSULT PHYSICIAN Internal Medicine; CONSULT PHYSICIAN Internal Medicine Critical Care Medicine; CONSULT PHYSICIAN Specialist; CONSULT PHYSICIAN Surgery; FAMILY PHYSICIAN Internal Medicine; OTHER PHYSICIAN Psychiatry & Neurology Psychiatry
PROC: 30233N1 Transfusion of Nonautologous Red Blood Cells into Peripheral Vein, Percutaneous Approach (ICD-10-PCS; 2024-03-05)
PROC: 02100Z9 Bypass Coronary Artery, One Artery from Left Internal Mammary, Open Approach (ICD-10-PCS; 2024-03-05)
PROC: 06BP4ZZ Excision of Right Saphenous Vein, Percutaneous Endoscopic Approach (ICD-10-PCS; 2024-03-05)
PROC: 021209W Bypass Coronary Artery, Three Arteries from Aorta with Autologous Venous Tissue, Open Approach (ICD-10-PCS; 2024-03-05)
PROC: B24BZZ4 Ultrasonography of Heart with Aorta, Transesophageal (ICD-10-PCS; 2024-03-05)
PROC: 5A1221Z Performance of Cardiac Output, Continuous (ICD-10-PCS; 2024-03-05)
PROC: 30233K1 Transfusion of Nonautologous Frozen Plasma into Peripheral Vein, Percutaneous Approach (ICD-10-PCS; 2024-03-05)
PROC: 0DBP8ZX Excision of Rectum, Via Natural or Artificial Opening Endoscopic, Diagnostic (ICD-10-PCS; 2024-03-12)
PROC: 0DBN8ZX Excision of Sigmoid Colon, Via Natural or Artificial Opening Endoscopic, Diagnostic (ICD-10-PCS; 2024-03-12)
PROC: 0DBM8ZX Excision of Descending Colon, Via Natural or Artificial Opening Endoscopic, Diagnostic (ICD-10-PCS; 2024-03-12)
PROC: 3E02340 Introduction of Influenza Vaccine into Muscle, Percutaneous Approach (ICD-10-PCS; 2024-03-17)
PROC: 3E0234Z Introduction of Serum, Toxoid and Vaccine into Muscle, Percutaneous Approach (ICD-10-PCS; 2024-03-17)
DX: I25.10 Atherosclerotic heart disease of native coronary artery without angina pectoris (principal); J95.821 Acute postprocedural respiratory failure; D62 Acute posthemorrhagic anemia; N39.0 Urinary tract infection, site not specified; D68.8 Other specified coagulation defects; K62.6 Ulcer of anus and rectum; K63.3 Ulcer of intestine; J98.11 Atelectasis; E78.00 Pure hypercholesterolemia, unspecified; J44.9 Chronic obstructive pulmonary disease, unspecified; F17.210 Nicotine dependence, cigarettes, uncomplicated; E11.22 Type 2 diabetes mellitus with diabetic chronic kidney disease; N18.31 Chronic kidney disease, stage 3a; I34.0 Nonrheumatic mitral (valve) insufficiency; K21.9 Gastro-esophageal reflux disease without esophagitis; D69.59 Other secondary thrombocytopenia; R33.8 Other retention of urine; R15.9 Full incontinence of feces; F43.20 Adjustment disorder, unspecified; B95.2 Enterococcus as the cause of diseases classified elsewhere; I12.9 Hypertensive chronic kidney disease with stage 1 through stage 4 chronic kidney disease, or unspecified chronic kidney disease; Y83.2 Surgical operation with anastomosis, bypass or graft as the cause of abnormal reaction of the patient, or of later complication, without mention of misadventure at the time of the procedure; I95.9 Hypotension, unspecified; K63.89 Other specified diseases of intestine; I70.0 Atherosclerosis of aorta; E87.70 Fluid overload, unspecified; E86.1 Hypovolemia; R19.7 Diarrhea, unspecified; Z23 Encounter for immunization; Z79.82 Long term (current) use of aspirin; Z79.4 Long term (current) use of insulin; Z79.899 Other long term (current) drug therapy; Z86.0101 Personal history of adenomatous and serrated colon polyps
CPT/HCPCS: 88305; 36415; 71045; 71046; 71250; 80048; 80053; 81003; 81015; 82140; 82330; 82565; 82805; 82810; 82947; 82962; 83036; 83735; 84132; 84302; 84520; 85014; 85018; 85025; 85027; 85049; 85610; 85730; 86803; 86850; 86900; 86901; 86920; 86927; 87045; 87046; 87070; 87077; 87086; 87186; 87324; 87427; 87449; 90662; 90677; 93005; 93312; 93320; 93325; 93880; 94002; 94003; 97110; 97116; 97163; 97167; 97530; 97535; 99406; G0008; G0009; P9016; P9045; P9047; P9059